=== PATIENT | male | born 1945 | race Caucasian/White ===

== ENCOUNTER 2020-02-05 13:04 | Emergency (ER) | payer MEDICARE, BC, SELFPAY ==
--- NOTE | 2020-02-05 13:04 | ED.GENADUL_ITS ---
Discharge Plan Disposition Patient Disposition: HOME Condition: Good Discharge Details Chief Complaint: Cellulitis Clinical Impression: Cellulitis Primary Care Provider: Dali Jefferson ED Provider: Pamela Adler Home Meds and New Rx's Prescriptions: New cephalexin [Keflex] 500 mg capsule 500 mg PO QID 5 Days Qty: 20 RF: 0 Discharge Instructions Instructions: Cellulitis (ED) Additional Instructions: Your findings are concerning for infection of your skin called cellulitis. H owever, the tick was on too short of a period of time to be able to transmit Lyme disease. I would like you to take the antibiotics for your bacterial infection. Even if symptoms improve, please take the entire prescription. If you develop spreading of the redness, fever/chills or the new/worsening symptom please seek care urgently once again. Otherwise, please follow-up with primary care in 3 days for reevaluation. Referrals: Dali Jefferson MD [Primary Care Provider] - Discharge Data Discharge Date/Time-TO BE ENTERED AT DEPARTURE: 02/05/20 13:35 Medical Decision Making Patient presents today for evaluation of tick bite. He reports that approximate week and a half ago his removed a small deer tick from the inside aspect of his left upper arm. He reports that the tick was on for only a few hours and d oes not believe that it was embedded. However, over the last few days he has been developing surrounding erythema, discomfort. He states that the area has been pruritic and has been itching this and worsened to the central scab in doing so. He denies any fevers or chills. Last tetanus was in 2018. Exam, patient appears nontoxic. Vital signs within normal limits. On exam, patient has small area consistent with a tick bite that has been excoriated. Surrounding this area is a large area of erythema. No fluctuance. He is tender to palpation and warm to the touch. No streaking moving proximally. He has no palpable lymphadenopathy in the axilla. 2+ distal pulses and forward to motion. Based on history, this is more consistent with a cellulitis after tick bite rather than Lyme disease. Feel treatment with Keflex is appropriate. Encourage hydration. He was given strict return precautions. Advised to follow-up with primary care in the next few days for reevaluation. All his questions or concerns were addressed and he is in agreement this plan. HPI General Mode of arrival: ambulatory . Date/Time Provider Initiated Documentation: 02/05/20 13:04 . Limitations to Documentation: no limitations . Information obtained by: patient and RN notes reviewed . History of Present Illness 74 year old M presents to the emergency department with the chief complaint of left medial upper arm erythema and pain after tick bite, described as mild, with intensity rated at 2. Quality is described as aching, and is localized to the left and upper extremity. Patient reports no radiation. Patient started experiencing this day(s) and it has been constant (redness progressively spreading). No relieving factors improve symptom(s), No exacerbating factors reported . Patient notes denies chest pain, cough, fever/chills, nausea/vomiting and shortness of breath. Patient did receive the following treatments prior to arrival, none Related Data Home Medications Medication Instructions Recorded Confirmed cephalexin [Keflex] 500 mg PO QID 5 Days #20 cap 02/05/20 Previous Rx's Medication Instructions Recorded cephalexin [Keflex] 500 mg PO QID 5 Days #20 cap 02/05/20 Allergies Allergy/AdvReac Type Severity Reaction Status Date / Time shellfish derived Allergy Severe GI upset, Unverified 02/05/20 13:14 nasal congestion Review of Systems Constitutional Constitutional: Reports as per HPI, Denies chills, Denies fever(s), Denies headache(s) and Denies weakness ENT Ears, Nose, Mouth, and Throat: Denies headache(s) Cardiovascular Cardiovascular: Reports as per HPI Respiratory Respiratory: Reports as per HPI and Denies cough Musculoskeletal Musculoskeletal: Reports as per HPI and Denies tingling Integumentary/Breasts Skin/Breast: Reports as per HPI, Denies rash and Reports wounds Neurologic Neurologic: Reports as per HPI, Denies headache(s), Denies tingling, Denies paresthesias and Denies weakness [facility] Social History Smoking/Tobacco Use Status: Former Tobacco Use Alcohol Intake: current Alcohol Intake frequency: 0-2 drinks per day Alcohol type: beer Drug use: Never Do you feel safe at home: Yes Do you feel safe in your relationship?: Yes Exam Const General: cooperative, healthy appearing, comfortable, no acute distress, well developed and well groomed Nutritional Appearance: average body habitus and well nourished Orientation: alert and awake Resp Effort & Inspection: normal respiratory effort, able to speak in complete sentences and no respiratory distress Cardio Rate: regular rate Rhythm: regular rhythm Skin General skin exam: erythema (surrounding small scab as drawn below) Neuro General: patient alert and patient awake Cognition: normal cognition Speech: speech normal Gait: normal gait Motor: muscle tone normal throughout Sensory Exam: no sensory deficits noted Extrem Shoulder/upper arm images: 1. area of tick bite with small scab. The area has been excoriated. He has 2+ distal pulses. Full range of motion of the arm. No sensory deficits. Axial nerve testing is intact. He has no palpable lymphadenopathy in his axilla. 2. Surrounding area of erythema. This was marked with surgical marker. No fluctuance or induration. This area is tender with palpation and warm to touch. Psych Appearance: grossly normal and well kempt Mental Status: mental status grossly normal Speech and Movement: speech and movement normal
[2020-02-05 13:07] VITALS: BP 138/76; PULSE 75; RESP 15; TEMP 37.1; O2SAT 99
--- NOTE | 2020-02-05 13:45 | NUR.NOTE ---
Nursing Note: Referral for PCP follow up faxed. Cheryle Mcdonald.
== END 2020-02-05 13:35 | disposition home or self-care (01) ==
PROVIDERS: Emergency Provider Physician Assistant; PCP Family Medicine
DX: L03.114 Cellulitis of left upper limb (principal); S40.862A Insect bite (nonvenomous) of left upper arm, initial encounter; W57.XXXA Bitten or stung by nonvenomous insect and other nonvenomous arthropods, initial encounter
CPT/HCPCS: 99283; 99284

== ENCOUNTER 2020-06-19 00:47 | Outpatient (CLI) | payer MEDICARE, BC, SELFPAY ==
--- NOTE | 2020-07-15 13:53 | W.ZIOMONITOR ---
Date of service: 07/15/20 Time of Service: 13:53 14 Day [employer] Referring Provider:: daysi Indications:: afib Note: This is a 14-day monitor ordered for indication of atrial fibrillation. ?Patient had 5 episodes of atrial fibrillation which accounted for 25% of the 14-day recording. While in atrial fibrillation the average heart rate was 104 bpm. ?The patient had multiple additional runs of supraventricular tachycardia that were much shorter in duration. ?There were 21 episodes of nonsustained ventricular tachycardia with the longest lasting 9 beats. ?The patient had rare PACs and rare PVCs. ?There were no pauses greater than 3 seconds and no evidence of high degree heart block. Patient detected events were associated with sinus rhythm as well as atrial fibrillation with RVR
== END 2020-06-19 01:07 ==
PROVIDERS: PCP Family Medicine; Visit Provider Family Medicine
DX: R06.09 Other forms of dyspnea (principal); I08.1 Rheumatic disorders of both mitral and tricuspid valves
CPT/HCPCS: 93306

== ENCOUNTER 2020-06-19 14:41 | Emergency (ER) | payer MEDICARE, BC, SELFPAY ==
[2020-06-19] VITALS (48 sets, daily range): BP systolic 108–128; BP diastolic 68–91; PULSE 56–109; RESP 12–32; TEMP 36.7; O2SAT 90–96
--- NOTE | 2020-06-19 14:30 | RT.EKG_ITS ---
APPROVED REPORT Exam: Resting ECG Patient Location: E HR:95 bpm ECG Measurements Heart Rate 95 AXIS NE [id number] P [id number] QRSd 91 QRS -28 QT 323 T 39 QTc 407 Conclusion Atrial fibrillation...V-rate 78-109, irreg A-activity I have reviewed and interpreted ECG and agree with software generated interpretation.
--- NOTE | 2020-06-19 14:45 | DI.RAD_ITS ---
EXAM: XR CHEST 2V PA LATERAL CLINICAL HISTORY: Atrial fibrillation, new onset, dyspnea TECHNIQUE: 2D digital imaging was performed. COMPARISON: CR CHEST 2 VIEWS PA,LAT from 12/11/2015 FINDINGS: The heart is not enlarged. The lungs are clear and well expanded. No pleural effusion seen. Mediastin al contours appear intact. IMPRESSION: Normal chest RADIATION DOSE DELIVERED: Total DLP
[2020-06-19 15:07] LABS: Abs Immature Grans 0.02 10^3/uL (0.0-0.06); Absolute Basophil Count 0.07 10^3/uL (0.0-0.2); Absolute Eosinophil Count 0.26 10^3/uL (0.0-0.7); Absolute Lymphocyte Count 2.06 10^3/uL (1.2-3.4); Absolute Monocyte Count 0.51 10^3/uL (0.1-0.8); Absolute Neutrophil Count 5.25 10^3/uL (1.2-6.7); Basophils % 0.9; Eosinophils % 3.2; HGB 15.5 g/dL (13.5-17.5); Immature Grans % 0.2; Lymphocytes % 25.2; MCH 30.8 pg (27.0-33.0); MCHC 33.7 % (32.0-36.0); MCV 91.3 fL (80-95); MPV 9.3 fL (8.0-11.0); Monocytes % 6.2; Neutrophils % 64.3; Nucleated RBC 0 %; Platelet Count 308 10^3/uL (130-400); RBC 5.04 10^6/uL (4.36-5.78); RDW 13.1 % (11.8-14.1); RDW-SD 43.8 fL; WBC 8.17 10^3/uL (4.4-10.8)
[2020-06-19] MEDS: Aspirin 81 MG CHEW 324 MG CH (15:10)
--- NOTE | 2020-06-19 15:11 | W.ED.GENAD ---
Discharge Plan Disposition Patient Disposition: HOME Discharge Details Clinical Impression: Atrial fibrillation, ESTRADA (dyspnea on exertion) Primary Care Provider: Dali Jefferson ED Provider: Rohan Porter Home Meds and New Rx's Prescriptions: New Xarelto 20 mg tablet 20 mg PO DAILY Qty: 20 RF: 0 metoprolol succinate 25 mg tablet extended release 24 hr 25 mg PO DAILY Qty: 20 RF: 0 No Action No Known Home Meds RF: 0 Discharge Instructions Instructions: A-fib (Atrial Fibrillation) (ED), Dyspnea (ED) Additional Instructions: Xarelto and metoprolol as directed. As we discussed it is extremely important that you seek medical attention if you are involved in MVA, fall hit your head, etc. as your bleeding risk increases with Xarelto. I have personally spoken with your primary care provider, Dr. Jefferson, who is aware of your ER visit today and diagnosis of atrial fibrillation. She plans to see you in the office in the next 2-3 weeks, if you do not hear from their office in the next couple of days that I recommend reaching out to establish her appointment. Please watch for new or worsening symptoms and return to the ER for any concerns. Discharge Data Discharge Date/Time-TO BE ENTERED AT DEPARTURE: 06/19/20 18:40 Medical Decision Making <Mena Santiago - Last Filed: 06/20/20 08:50> 74-year-old male presents to the ER after having an echocardiogram done prior to arrival and noted to have irregular tachycardia. Patient was having an echocardiogram done due to being dyspneic for years. He reports he has had 3- echocardiograms and one stress test in the past which is all been negative until today. He denies any chest pain no abdominal pain and no other complaints. Patient is not taking any medications on a regular basis. He states that he does not see the doctor said very rarely. On initial exam he does have an irregular rate from 95-112. EKG was reviewed by Naomie Melo MD ER attending, see please see her official read, old EKG was available for review from 2015. It shows atrial fibrillation with a rate of 78-109. 2016 EKG shows normal sinus rhythm. EXAM: XR CHEST 2V PA LATERAL CLINICAL HISTORY: Atrial fibrillation, new onset, dyspnea TECHNIQUE: 2D digital imaging was performed. COMPARISON: CR CHEST 2 VIEWS PA,LAT from 12/11/2015 FINDINGS: The heart is not enlarged. The lungs are clear and well expanded. No pleural effusion seen. Mediastinal contours appear intact. IMPRESSION: Normal chest At this time care is to be handed off to oncoming provider JON Bowers pending lab results and disposition. Discussed patient case in details with Rohan who verbalizes understanding. Patient was hemodynamically stable at the time of this dictation. <JON Soto - Last Filed: 06/19/20 19:21> This is a 74-year-old gentleman whom I assumed care of through signout from my colleague MAE Santiago. Please see her HPI and examination. Patient has dyspnea on exertion for the past 3 years, evaluated by his primary care provider, and scheduled for an outpatient echocardiogram today. During his echocardiogram he was noted to be in atrial fibrillation. Sent to the ER for further evaluation. On the presentation heart rate was 109. Cardiac work-up was initiated and 10 IV diltiazem was ordered. Upon my evaluation patient is resting in room 4 comfortably, has no questions or concerns. Currently is asymptomatic. Denies any chest pain or shortness of breath whatsoever. Patient appears well, nontoxic, head normocephalic, moist mucous membranes, neck nontender, full range of motion. Heart irregularly irregular, rate in the 90s, lungs clear to auscultation. Abdomen soft, nontender. Normal distal pulses. Without calf discomfort or swelling. No pedal edema. Diltiazem has just been given. Awaiting response to the medication. Initial work-up thus far has been unremarkable with a white blood cell count of 8.17 hemoglobin 15.5 hematocrit 46.0 platelet count 308. Electrolytes unremarkable, creatinine 1.05 with a GFR greater than 60. Glucose 100 calcium 9.3 magnesium 2.1 LFTs unremarkable. Troponin less than 0.05, TSH 1.35. Patient reports dyspnea on exertion for the past 3 years and now in A. fib, unknown exactly how long he has been in atrial fibrillation. I will add on a CTA chest to rule out potential PE. Patient remains asymptomatic. Second troponin has been drawn. Patient is very adamant that he wants to be discharged home tonight. He is asymptomatic and I will be admitted for observation here in the ER. CT reveals no pulmonary embolism. Findings suggesting mild bronchitis and bronchiolitis. 3 x 4 mm left upper lobe nodule, indeterminate but likely benign. Able to discuss the case with the patient primary care provider, Dr. Jefferson. She is aware of his presentation today and his work-up. She is aware of the patient's desire to be discharged. We discussed treatment options. Will place on Xarelto and low-dose metoprolol long-acting, set the patient up with a 14-day Holter monitor, and she will follow the patient in the next 2-3 weeks as an outpatient. I discussed this plan with the patient and he has no additional questions or concerns. Initial dose of Xarelto given. 14-day Holter monitor set up here in the ER. Patient remains asymptomatic. Repeat troponin is less than 0.05. Patient has no additional questions or concerns and is comfortable discharge at this time. We did discuss the importance of watching for new or evolving symptoms and returning immediately to the ER, otherwise contacting his primary care office for evaluation in the next 2-3 weeks. I will provide him with a 3-week prescription for his Xarelto and metoprolol. Medical Records Medical records reviewed: Yes I reviewed the patient's medical records. HPI <Mena Santiago - Last Filed: 06/20/20 08:50> General Mode of arrival: ambulatory. Date/Time Provider Initiated Documentation: 06/19/20 14:48. Limitations to Documentation: no limitations. Information obtained by: patient. HPI Narrative: 74-year-old male presents to the ER after having an echocardiogram done prior to arrival and noted to have irregular tachycardia. Patient was having an echocardiogram done due to being dyspneic for years. He reports he has had 3- echocardiograms and one stress test in the past which is all been negative until today. He denies any chest pain no abdominal pain and no other complaints. Patient is not taking any medications on a regular basis. He states that he does not see the doctor said very rarely. On initial exam he does have an irregular rate from 95-112. Related Data Home Medications Medication Instructions Recorded Confirmed Unknown [No Known Home Meds] 06/19/20 06/19/20 metoprolol succinate 25 mg PO DAILY #20 tab 06/19/20 rivaroxaban [Xarelto] 20 mg PO DAILY #20 tab 06/19/20 Previous Rx's Medication Instructions Recorded metoprolol succinate 25 mg PO DAILY #20 tab 06/19/20 rivaroxaban [Xarelto] 20 mg PO DAILY #20 tab 06/19/20 Allergies Allergy/AdvReac Type Severity Reaction Status Date / Time shellfish derived Allergy Severe GI upset, Unverified 06/19/20 14:51 nasal congestion General Stated Complaint: Palpitatns ANGELO: 2 Review of Systems <Mena Santiago - Last Filed: 06/20/20 08:50> Narrative: Constitutional: Negative for weight loss, alert and oriented, well groomed, normal body habitus, appears comfortable. HEENT: Denies trauma, headaches, blurry vision, nasal discharge, sore throat, trouble swallowing. Chest: Denies chest pain, hypertension. Respiratory: Denies Shortness of breath, cough, hemoptysis. GI: Denies abdominal pain, nausea, vomiting, diarrhea, constipation. : Denies dysuria, hematuria, flank pain, rectal bleeding. Neuro: Denies dizziness, blurry vision, weakness, syncope, headache or facial numbness. Hematologic: Denies easy bruising, intolerance to heat or cold, hair loss. PFSH <Mena Santiago - Last Filed: 06/20/20 08:50> Social History Smoking/Tobacco Use Status: Former Tobacco Use Alcohol Intake: current Alcohol Intake frequency: 0-2 drinks per day Alcohol type: beer Drug use: Never Details: quit smoking 40 yrs ago Do you feel safe at home: Yes Do you feel safe in your relationship?: Yes Exam <Mena Santiago - Last Filed: 06/20/20 08:50> Narrative Exam Narrative: Constitutional: Alert and oriented x3. Appears stated age. Normal body habitus. Head: Normocephalic, no trauma. Eyes: Pupils PERRLA, Red reflex noted, EOM's intact. Eyelids symmetrical without lesions, discharge, or swelling. ENT: Bilateral TM's WNL, External ear normal to inspection, no mastoid TTP, swelling, or erythema, Nasal turbinates WNL, no nasal discharge. Normal dentition, Posterior pharynx WNL, no exudate. Chest: Irregular rate from 95-112, normal S1, S2, distal pulses intact. Resp: Lungs clear to auscultation bilaterally, no wheezes, rales, or rhonchi. Musculoskeletal: Normal gait, 5/5 strength to all four extremities. Skin: No suspicious rashes or lesions. Capillary refill less than 2 sec. Neurologic: Cranial nerves II-XII intact. Alert and oriented x 3. DTR's intact. Hematologic/Lymphatic: No ecchymosis, no lymphadenopathy. Course <Mena Santiago - Last Filed: 06/20/20 08:50> Vital Signs Vital signs: Vital Signs Temperature 36.7 C 06/19/20 14:47 Pulse 109 H 06/19/20 14:47 Respiratory Rate 18 06/19/20 14:47 Blood Pressure 123/78 06/19/20 14:47 Pulse Oximetry 95 06/19/20 14:47 Temperature 36.7 C 06/19/20 14:47 Temperature Source Skin 06/19/20 14:47 Pulse 109 H 06/19/20 14:47 Respiratory Rate 18 06/19/20 14:47 Respiratory Effort 06/19/20 14:52 Blood Pressure 123/78 06/19/20 14:47 Pulse Oximetry 95 06/19/20 14:47 Oxygen Delivery Method Room Air 06/19/20 14:47 Oxygen Flow Rate 0 06/19/20 14:47 Pain Level 0 06/19/20 14:47 Lab/Test Results Lab/Test Results: Laboratory Tests Range/Units 06/19/20 14:51 WBC (4.4-10.8) 10^3/uL 8.17 RBC (4.36-5.78) 10^6/uL 5.04 Hgb (13.5-17.5) g/dL 15.5 Hct (40.0-50.0) % 46.0 MCV (80-95) fL 91.3 MCH (27.0-33.0) pg 30.8 MCHC (32.0-36.0) % 33.7 RDW (11.8-14.1) % 13.1 Plt Count (130-400) 10^3/uL 308 MPV (8.0-11.0) fL 9.3 Immature Gran % 0.2 Neutrophils % 64.3 Lymphocytes % 25.2 Monocytes % 6.2 Eosinophils % 3.2 Basophils % 0.9 Nucleated RBC % % 0 Absolute Neutrophils (1.2-6.7) 10^3/uL 5.25 Absolute Lymphocytes (1.2-3.4) 10^3/uL 2.06 Absolute Monocytes (0.1-0.8) 10^3/uL 0.51 Absolute Eosinophils (0.0-0.7) 10^3/uL 0.26 Absolute Basophils (0.0-0.2) 10^3/uL 0.07 Sign Out <Mena Santiago - Last Filed: 06/20/20 08:50> Sign Out Data: Sign Out Comment: Pending rate control, possible cardiology consult, and disposition Last updated by Mena Santiago at 06/19/20 16:02
[2020-06-19 15:40] LABS: ALT 36 U/L (16-63); AST 18 U/L (15-37); Albumin 3.6 g/dL (3.4-5.0); Alkaline Phosphatase 68 U/L (46-116); Anion Gap 8.4 mmol/L (3-11); BUN 19 mg/dL (7-18); Bilirubin, Total 0.4 mg/dL (0.2-1.0); CO2 26.6 mmol/L (21.0-32.0); CREATININE 1.05 mg/dL (0.70-1.30); Calcium 9.3 mg/dL (8.5-10.1); Chloride 107 mmol/L (98-107); Glucose 100 mg/dL (74-106); Magnesium 2.1 mg/dL (1.8-2.4); Potassium 4.2 mmol/L (3.5-5.1); Sodium 142 mmol/L (136-145); TSH 1.35 uIU/mL (0.36-3.74); Total Protein 7.3 g/dL (6.4-8.2)
[2020-06-19 15:54] LABS: Troponin I < 0.05 ng/mL (<0.06)
[2020-06-19] MEDS: dilTIAZem 25 MG/5 ML VIAL 10 MG IVP (16:01)
--- NOTE | 2020-06-19 16:15 | DI.CT_ITS ---
EXAM: CT CHEST PE CTA CLINICAL HISTORY: ESTRADA, afib. TECHNIQUE: Imaging Protocol: Axial CT angiography was performed with multi-slice acquisition and mu lti-planar and/or 3D reconstructions. CONTRAST MATERIAL: Intravenous: Omnipaque 350 Contrast volume:structured data in ml COMPARISON: No exams were available for comparison FINDINGS: CT angiography of the chest was performed with intravenous infusion of 100 cc of Omnipaque 350. The lungs are predominantly clear with mild dependent atelectasis. No pleural effusion. Tracheobronc hial tree appears intact. No evidence of pulmonary embolic disease. Thoracic aorta is of normal diameter, no thoracic aortic an eurysm or dissection, major branch vessels appear intact. No mediastinal or hilar adenopathy. Images obtained through the upper abdomen show unremarkable appearance of the visualized portions of the liver, spleen, pancreas, adrenals, and kidneys. IMPRESSION: Negative CT angiogram of the chest. No evidence of pulmonary embolic disease. RADIATION DOSE DELIVERED: 418.06mGy.cm Total DLP 418.06mGy.cm Total DLP DATA REPOSITORY: All CT scans at this facility are submitted to the National Radiology Data Registry (NRDR) Dose Index Registry (DIR) with the [employer] (ACR). RADIATION OPTIMIZATION: All CT scans at this facility use at least one of these dose optimization te chniques: automated exposure control; mA and/or kV adjustment per patient size (includes targeted exa ms where dose is matched to clinical indication); or iterative reconstruction.
[2020-06-19] MEDS: Omnipaque 350 MG/ML 100 ML BTL IJ (16:54)
[2020-06-19 18:07] LABS: Troponin I < 0.05 ng/mL (<0.06)
[2020-06-19] MEDS: Rivaroxaban 10 MG TABLET 20 MG PO (18:35)
--- NOTE | 2020-06-27 16:02 | DI.VRAD_ITS ---
PROCEDURE INFORMATION: Exam: CT Angiography Chest With Contrast Exam date and time: 06/19/2020 4:50 PM Age: 74 years old Clinical indication: Other: Raines, afib TECHNIQUE: Imaging protocol: Computed tomographic angiography of the chest with intravenous contrast. 3D rendering (Not supervised by radiologist): MIP and/or 3D reconstructed images were created by the technologist. COMPARISON: None. FINDINGS: Pulmonary arteries: No filling defects within the central pulmonary arteries are identified to suggest pulmonary embolism. There is no bowing of the interventricular septum. There is trace reflux of contrast into the suprahepatic inferior vena cava, likely related to pressure of contrast injection. The pulmonary arteries are not dilated. Aorta: Unremarkable. No aortic aneurysm. No aortic dissection. Lungs: There is mild central peribronchial thickening, most marked within the lower lobes. There are also regions of mild mucous plugging within the few subsegmental basilar lower lobe bronchi. There also a few regions of mild tree-in-bud opacities within both lung bases suggesting mild bronchiolitis/infectious small airways disease. There are regions of mild subsegmental atelectasis within both lung bases. On image 110, series 5, there is a 3 x 4 mm noncalcified anterolateral apical left upper lobe nodule. There is minimal paraseptal emphysema at the lung apices. Pleural space: No pleural effusions are identified. Heart: Heart size is mildly enlarged. There is no pericardial effusion. Lymph nodes: There is no thoracic adenopathy identified. Bones/joints: There are multilevel mild degenerative changes of the mid and lower thoracic spine. There is mild anterior wedging of the T12 vertebra which appears chronic. No acute fracture. Soft tissues: Unremarkable. IMPRESSION: 1. No pulmonary embolism identified. 2. Findings suggesting mild bronchitis and bronchiolitis, as described above. Recommend clinical correlation. 3. 3 x 4 mm left upper lobe nodule, indeterminate but likely benign. For patients at low risk (minimal or absent history of smoking and of other known risk factors), no routine follow-up is indicated. For patients at high risk (history of smoking or of other known risk factors), consider optional CT Chest at 12 months. (Reference: Daphney) References: Daphney Johnson, et al. Guidelines for Management of Incidental Pulmonary Nodules Detected on CT Images: From the Fleischner Society 2017. Radiology. 2017;284(1):228-243. Dictated and Authenticated by: Donta Rosales MD. Ordering:JUAQUIN Madrigal MD
== END 2020-06-19 18:40 | disposition home or self-care (01) ==
PROVIDERS: Registered Nurse Emergency; Emergency Provider Physician Assistant; PCP Family Medicine
DX: R06.09 Other forms of dyspnea (principal); I48.91 Unspecified atrial fibrillation; R91.1 Solitary pulmonary nodule
CPT/HCPCS: 0296T; 36415; 71275; 80053; 93005; 96374; 99285; 71046; 83735; 84443; 84484; 85025; 93010; 93306; J3490

== ENCOUNTER 2020-07-15 13:53 | Outpatient (CLI) | payer MEDICARE, BC, SELFPAY | END 2020-07-15 14:13 | PROVIDERS: PCP Family Medicine; Referring Provider Physician Assistant; Visit Provider Internal Medicine Cardiovascular Disease | DX: I48.91 Unspecified atrial fibrillation (principal); I47.1 Supraventricular tachycardia; I47.2 Ventricular tachycardia | CPT/HCPCS: 0298T ==

== ENCOUNTER 2020-07-29 10:21 | Outpatient (CLI) | payer MEDICARE, BC, SELFPAY ==
--- NOTE | 2020-07-29 10:30 | DI.NM_ITS ---
APPROVED REPORT Exam: Exercise Treadmill Patient Location: Out-Patient Room/Bed: Stress Nurse: Radha Reyes RN BMI: 27.25 Baseline Rhythm: Atrial Fibrillation Comment: ? delta wave Indications: ESTRADA. Medical History Medical History: Atrial Fibrillation. Cardiac Medications: Metoprolol succinate, Rivaroxaban, Pantoprazole. Allergies: No known drug allergies, Shellfish. Cardiac Risk Factors: None. Previous Cardiac Procedures: None. Pretest Chest Pain Characteristics: None. Exercise History: Sedentary Physical Disabilities: None. Lung Sounds: Clear to auscultation Heart Sounds: Irregular Stress Test Details Test: Exercise stress testing was performed using a modified Abdelrahman protocol., Exercise stress testin g was performed using a Abdelrahman protocol. Nuclear Acquisition: Rest Tc-99m/Stress Tc-99m 1 day Rest Isotope: Tc-99m Sestamibi. Dose: 11.5 Date: 07/29/2020 Injection Time: 1030 Stress Isotope: Tc-99m Sestamibi. Dose: 36 Date: 07/29/2020 Injection Time: 1300 HR Resting HR Supine: 81 bpm Max Heart Rate (APMHR): 146.589531 bpm Resting HR Standin bpm Target HR (85% APMHR): 124.752461 bpm Max HR Achieved: 179 bpm % of APMHR: 122.60 Recovery HR: 99 bpm HR response to stress: Normal HR response to stress BP Resting BP Supine: 144/90 mmHg Resting BP Standin/90 mmHg Max BP: 160/80 mmHg Recovery BP: 148/84 mmHg BP response to stress: Normal blood pressure response to stress. ECG Resting ECG: Atrial Fibrillation Ectopy: None. Stress ECG: Atrial Fibrillation ST Change: No significant ST segment changes noted. Arrhythmia: Non-sustained VT Comment: 4 beat run witnessed on monitor, unable to print for report. Recovery ECG: Atrial Fibrillation Recovery ST Change: Upsloping ST depression Lead(s): V3, V4, V5 Recovery Arrhythmia: Couplet. Clinical Reason for Termination: Dyspnea Stress Symptoms: Dyspnea Exercise duration: 7 min19 sec Highest Stage Reached: Stage 3: 3.4 mph at 14% grade. Exercise capacity: 9.08 METs Stress ECG Conclusion 1. The resting electrocardiogram showed atrial fibrillation 2. The patient exercised on the Abdelrahman protocol and completed a workload of 9.08 METS, limited by dysp margarito 3. Accelerated heart rate response to exercise. Patient achieved greater than 100% of predicted hear t rate for age. Normal blood pressure response to exercise 4. Electrocardiographically negative for myocardial ischemia 5. Atrial fibrillation was present throughout Stress Test Summary STAGE Time (mins) Speed (mph) Grade (%) HR BP SYMPTOMS METS Supine 81 144/90 Standing 101 146/90 1 3 1.7 10 145 152/84 4.6 2 6 2.5 12 150 160/80 7 1 min recovery 162 160/78 3 min recovery 112 150/86 6 min recovery 99 148/84 MPI Conclusion Normal myocardial perfusion without evidence of ischemia or prior infarction Radiologist Interpretation Radiologist Interpretation by: Jimmie Álvarez MD Interpretation Date/Time: 07/29/2020 15:04:38
== END 2020-07-29 10:41 ==
PROVIDERS: PCP Family Medicine; Visit Provider Family Medicine
DX: R06.09 Other forms of dyspnea (principal)
CPT/HCPCS: 78452; 93016; 93018; 93017

== ENCOUNTER → 2020-09-10 14:04 | Outpatient (BNVA) | payer MEDICARE, BC, SELFPAY | PROVIDERS: PCP Family Medicine; Referring Provider Family Medicine; Visit Provider Internal Medicine Cardiovascular Disease | DX: I48.0 Paroxysmal atrial fibrillation (principal); E78.5 Hyperlipidemia, unspecified; R06.00 Dyspnea, unspecified | CPT/HCPCS: 99203; 99214 ==

== ENCOUNTER 2021-06-30 01:35 | Outpatient (CLI) | payer MEDICARE, SELFPAY ==
--- NOTE | 2021-06-30 06:30 | DI.CT_ITS ---
Exam(s) CT CHEST WO EXAM: CT CHEST WO CLINICAL HISTORY: f/u BRYN nodule on scan 1 year ago,R91.1. TECHNIQUE: Multi planar reconstructions were performed. CONTRAST MATERIAL: None COMPARISON: CR XR CHEST 2V PA LATERAL from 06/19/[address] CHEST PE CTA from 06/19/[address] CHEST PE CTA from 06/19/2020 FINDINGS: CHEST: LUNGS: Both lungs are clear. No infiltrates nor ominous pulmonary nodules and there are no pleural e ffusions. There are no significant focal findings in the trachea and mainstem bronchi. There is no bronchiectasis. MEDIASTINUM: There is no obvious hilar nor mediastinal adenopathy. Visualized thyroid unremarkable.No obvious axillary adenopathy CARDIAC: Heart size is normal. There is no pericardial effusion.Ascending thoracic aorta exhibits in creased diameter of up to 4 cm. Diameter of the mid aortic arch is 3.3 cm. Diameter of the proximal descending thoracic aorta is 3.1 cm. Diameter of the distal thoracic aorta is 2.8 cm. VISUALIZED UPPER ABDOMEN:No significant findings in the partially visualized upper abdomen OSSEOUS: No significant osseous lesions.No compression fractures. IMPRESSION: 1. Lungs are clear. No nodules evident (as per request). No infiltrates nor pleural effusions. The re is no intrathoracic adenopathy 2. Ascending thoracic aorta diameter is increased, measuring 4 cm this require appropriate follow-up. Diameter of the mid aortic arch is 3.3 Cm. Diameter of the ascending thoracic aorta is also sligh tly prominent. RADIATION DOSE DELIVERED: 531.16mGy.cm Total DLP DATA REPOSITORY: All CT scans at this facility are submitted to the National Radiology Data Registry (NRDR) Dose Index Registry (DIR) with the [employer] (ACR). RADIATION OPTIMIZATION: All CT scans at this facility use at least one of these dose optimization te chniques: automated exposure control; mA and/or kV adjustment per patient size (includes targeted exa ms where dose is matched to clinical indication); or iterative reconstruction.
== END 2021-06-30 01:55 ==
PROVIDERS: PCP Family Medicine; Visit Provider Student in an Organized Health Care Education/Training Program
DX: R91.1 Solitary pulmonary nodule (principal)
CPT/HCPCS: 71250

== ENCOUNTER 2021-10-13 01:27 | Outpatient (CLI) | payer MEDICARE, SELFPAY ==
[2021-10-13 11:25] LABS: Source Nasal/Nares
[2021-10-13 14:15] LABS: COVID-19 PCR Negative (Negative)
== END 2021-10-13 01:28 | disposition home or self-care (01) ==
PROVIDERS: PCP Family Medicine; Visit Provider Family Medicine
DX: Z20.822 Contact with and (suspected) exposure to COVID-19 (principal); Z01.818 Encounter for other preprocedural examination
CPT/HCPCS: 87635

== ENCOUNTER 2021-10-14 00:21 | Outpatient (CLI) | payer MEDICARE, SELFPAY ==
--- NOTE | 2021-10-14 10:45 | DI.RAD_ITS ---
Exam(s) RF MODIFIED SPEECH BA SWALLOW TECHNIQUE: Modified barium swallow was performed in conjunction with speech pathology. CONTRAST MATERIAL: Oral barium Oral water soluble contrast was administered. COMPARISON: No exams were available for comparison FINDINGS: Note that this is not a dedicated esophagram, distal esophagus not evaluated. There is no evidence of aspiration or penetration of thick or thin liquids, barium pudding, or cookie s. Speech pathology report to follow. IMPRESSION: No evidence of aspiration or penetration. RADIATION DOSE DELIVERED: abrahan Del Rosario= mGy
[2021-10-14] MEDS: Barium Sulfate Oral Paste 40% W/V 230 ML TUBE 13 ML PO (11:00)
[2021-10-14] MEDS: Barium Sulfate 81% w/w for Oral Suspension 148 GM BTL 90 GM PO (11:05)
[2021-10-14] MEDS: Barium Sulfate 40% W/V 1500 CPS 250 ML BTL PO (11:06)
--- NOTE | 2021-10-14 11:10 | ST.MBS ---
Date of Service Date of service: 10/14/21 Time of Service: 10:30 Modified Barium Swallow Study Findings: Videofluoroscopic Swallowing Evaluation / Modified Barium Swallow Study (VFSE/MBSS) Speech Language Pathology Report HPI: Patient is a 76 y/o M with dyspnea on exertion, pulmonary nodule, emphysema, and suspected aspiration/dysphagia per pulmonology (Dr. Bernal is concerned aspiration may be contributing to dyspnea). Medical history also significant for hyperlipidemia, alcohol use, macular degeneration of R eye. Per pulmonology note dated 08/20/21: ?He also brings up several episodes of aspiration. He says it can happen with many different types of foods and liquids and this also causes him to be short of breath.? IMPRESSIONS: Mild oropharyngeal dysphagia, likely chronic; dysphagia presentation suspected due to GERD-related changes and/or presbyphagia. Characterized by mild oral residue (tongue control), reduced pharyngeal motility (especially reduced epiglottic inversion, reduced tongue base & pharyngeal contraction/stripping). Pharyngeal impairments leading to mild-mod pharyngeal residue but not resulting in penetration or aspiration into airway. Swallow safety is preserved; swallow efficiency is mildly impaired. Patient appears to be at low risk for potential aspiration PNA, pulmonary compromise, low risk for malnutrition, low risk for dehydration. Diet modification is not indicated. Swallow prognosis is good given age, severity, comprehension of recommendation of risk management as outlined. Behavioral swallow rehabilitation is not indicated at this time. Noting possible anatomical difference at soft palate vs palatoglossal arch, may warrant visualization by MD. PLAN: Diet recommendation: TOLERATED Risk Management: Behavioral reflux precautions, including upright position during + 90 mins after meals. Small bites, approx [id number] Small sips, approx 10 mL Alternate solids/liquids as able Multiple swallows per bolus (2) to encourage clearance of pharyngeal stasis/residue Control risk factors for aspiration pneumonia via (a) thorough oral hygiene & (b) maintaining physical mobility as tolerated Specialist referrals: n/a Ancillary tests: n/a Therapy: N/A. Reviewed results of today's exam with patient following completion of study, including provision of recommendations as outlined above. Patient was agreeable. No further follow-up necessary. EXAMINATION: SUBJECTIVE: Mr. Elliott arrived on time for this exam, unaccompanied. Appearing well this date, pleasant, joking throughout, remains agreeable to participate in todays instrumental evaluation. OBJECTIVE: Videofluoroscopic Swallow Evaluation (VFSE/MBSS) was conducted in the lateral and [id number] projections by Speech-Language Pathologist, in collaboration with Radiologist, to evaluate oropharyngeal swallow function. Anatomic view under fluoroscopy: Largely WFL at rest, though noting possible pocketing/residue at anterior portion of soft palate, possibly indicative of anatomical difference vs large palatoglossal arch? PO barium contrast trials: Oral barium water soluble contrast was administered as follows: IDDSI Level 0 Varibar thin liquid (40% w/v) IDDSI Level 2 Varibar nectar thick/mildly thick liquid (40% w/v) (A/P VIEW ONLY) IDDSI Level 4 Varibar pudding/pureed/extremely thick (40% w/v) IDDSI Level 7 Regular Solid: 1/2 candelario cracker coated in 3 mL Varibar pudding PHYSIOLOGIC FINDINGS Oral Phase 1 Lip Closure: 1-Interlabial escape; no progression to anterior lip 2 Tongue Control: 1- Escape to lateral buccal cavity/floor of mouth 3 Bolus Preparation/Mastication: 0- Timely and efficient chewing/mashing 4 Bolus Transport/Lingual Motion: 0- Brisk tongue motion 5 Oral residue: 2- Residue collection on oral structures Location: floor of mouth, palate, tongue, lateral sulci 6 Initiation of pharyngeal swallow: 2- Bolus head at posterior laryngeal surface of epiglottis Pharyngeal Phase 7 Velar Elevation: 0- No bolus between soft palate and pharyngeal wall 8 Laryngeal Elevation: 1- Partial superior movement of thyroid cartilage with partial approximation of arytenoids to epiglottic petiole 9 Anterior Hyoid Excursion: 1- Partial anterior movement 10 Epiglottic Movement: 1- Partial inversion 11 Laryngeal Vestibule Closure: 0- Complete; no air/contrast in laryngeal vestibule 12 Pharyngeal Stripping Wave: 1- Present; diminished 13 Pharyngeal Contraction: 1- Incomplete; pseudodiverticulae 14 PES/UES Openin- Complete distension and complete duration; no obstruction of flow 15 Tongue Base Retraction: 2- Narrow column of contrast between tongue base and posterior pharyngeal wall 16 Pharyngeal residue: 0-Complete pharyngeal clearance (cohesive puree) 1- Trace residue within or on pharyngeal structures (thin liquid) 2- Collection of residue within or on pharyngeal structures (regular solid, non-cohesive bolus) Location:Tongue base, Valleculae>Pyriform sinuses>aryepiglottic folds & PPW [place] Pharyngeal Residue Severity Rating Scale (YPRS) (Gregorio et al, 2015) Vallecula Residue Severity III Mild 5-25% Epiglottic ligament visible (thin liquid) IV Moderate 25-50% Epiglottic ligament covered (regular solids) Pyriform Sinus Residue Severity [I None 0% No residue II Trace 1-5% Trace coating of the mucosa (thin liquid) III Mild 5-25% Up wall to quarter full IV Moderate 25-50% Up wall to half full V Severe >50% Filled to aryepiglottic fold] Esophageal Phase 17 Esophageal Clearance Upright Position: 0-Complete clearance; esophageal coating NOTE: This study was performed for interpretation only of the oropharyngeal and pharyngoesophageal domains of swallowing. It is not intended to diagnose any other radiologic abnormalities or substitute for a formal esophagram study. Overall 8-Point Penetration-Aspiration Scale (PAS) (Tarak, et al, 1996) 1 - No material enters the airway. 2 - Material enters the airway, remains above the vocal folds, and is ejected from the airway. 3 - Material enters the airway, remains above the vocal folds, and is not ejected from the airway. 4 - Material enters the airway, contacts the vocal folds, and is ejected from the airway. 5 - Material enters the airway, contacts the vocal folds, and is not ejected from the airway. 6 - Material enters the airway, passes below the vocal folds, and is ejected into the larynx or out of the airway. 7 - Material enters the airway, passes below the vocal folds, and is not ejected from the trachea despite effort. 8 - Material enters the airway, passes below the vocal folds, and no effort is made to eject. Clinical Indicator(s) of Prandial/Postprandial Aspiration: N/A Bolus Modifications Delivery/Alternating Consistencies - Wash with thin liquid - partially successful Reduced Volume - patient not stimulable Increased Viscosity - unsuccessrul Dysphagia Outcome and Severity Scale (BRIAN) LEVEL 6 (of 7) - Full PO: normal diet - Within functional limits/modified independence Thank you for allowing me to take part in this patient's care. Please feel free to contact me with any questions/concerns. Nadia Ibrahim M.S., [facility]-[employer]SI[employer]ANT TE[employer] PROFESSOR Speech Language Pathologist [phone] Coding CPT Codes MOTION FLUOROSCOPY/SWALLOW - [id number] ([id number])
== END 2021-10-14 00:41 ==
PROVIDERS: PCP Family Medicine; Visit Provider Speech-Language Pathologist
DX: R13.12 Dysphagia, oropharyngeal phase (principal); R06.09 Other forms of dyspnea; J70.9 Respiratory conditions due to unspecified external agent
CPT/HCPCS: 92611; 74221

== ENCOUNTER 2021-11-01 09:25 | Inpatient (IN) | payer MEDICARE, SELFPAY ==
[2021-11-01] VITALS (65 sets, daily range): BP systolic 127–173; BP diastolic 85–99; PULSE 72–95; RESP 12–24; TEMP 35.6–36.6; O2SAT 93–98
--- NOTE | 2021-11-01 09:30 | RT.EKG_ITS ---
APPROVED REPORT Exam: Resting ECG Reason for Exam: weakness, confusion Patient Location: E HR:89 bpm ECG Measurements Heart Rate 89 AXIS RI [id number] P [id number] QRSd 98 QRS -33 QT 383 T -1 QTc 466 Conclusion Atrial fibrillation...V-rate 73-107, irreg A-activity Left axis deviation...QRS axis (-30,-90) afib, left axis, non ischemic
--- NOTE | 2021-11-01 09:45 | DI.CT_ITS ---
Exam(s) CT BRAIN NECK CTA EXAM: CT BRAIN NECK CTA CLINICAL HISTORY: ataxia, AMS began 30 mins prior. TECHNIQUE: Imaging Protocol: Axial CT angiography was performed with multi-slice acquisition and mu lti-planar and/or 3D reconstructions. CONTRAST MATERIAL: Intravenous: Omnipaque 350 Contrast volume:85 COMPARISON: CT CT CHEST PE CTA from 06/19/2020 FINDINGS: CTA Neck W: Aortic arch anatomy: The aortic arch anatomy is conventional. Anterior circulation: There is no evidence of significant stenosis at the origin of the great vessels off the aortic arch. Both common carotid arteries ascend with normal luminal diameters. There is mild partially calcified plaque on the posterior suresh of the carotid bifurcations and proximal internal carotid arteries laura aterally but without hemodynamically significant stenosis at these levels (approximately 10 percent b ilaterally). Both internal carotid arteries are nicely patent in the neck and skull base-carotid can als. Posterior circulation: Both vertebral arteries originate in conventional fashion off of the subclavian arteries without sten osis at their origins nor in the subclavian arteries proximal to the vertebral artery takeoff points. Both vertebral arteries ascend with normal luminal diameters in the foramen transverse area without e vidence of intraluminal thrombus nor dissection. At the skull base both vertebral arteries contribut e to the formation of the basilar artery. CTA Brain W: Anterior circulation: Both internal carotid arteries are patent in the cavernous sinuses as are the supraclinoid aspects of these vessels. Both A1 segments are patent. There is no aneurysm at the level of the anterior comm unicating artery. Only one of the anterior cerebral arteries is opacified proximally. This may be v ariant anatomy but cannot exclude an occlusion. Both middle cerebral arteries are patent. Posterior circulation: Basilar artery is formed by contribution from both vertebral arteries at the skull base. Distally th e basilar artery gives off patent superior cerebellar arteries. Above this level it terminates as le ft posterior cerebral artery. The right posterior cerebral artery is fed by a posterior communicatin g artery on the right side of the [id number]-ly-Yfoyic. The left posterior cerebral artery appears occlu ded at the junction of the P2 and P3 segments. CT BRAIN: There is no evidence of intracranial hemorrhage, mass effect, or shift of midline structures. There are no extra-axial fluid collections. Ventricles are not enlarged or shifted. There are no ring enh ancing lesions in the brain and no abnormal meningeal enhancement. IMPRESSION: 1. 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 2. Variant anatomy in the proximal anterior cerebral arteries. 3. No obvious infarct evident at this time on this noninfused CT scan of the brain and there is no evidence of intracranial hemorrhage. Recommend MRI/MRA. RADIATION DOSE DELIVERED: 1,965mGy.cm Total DLP DATA REPOSITORY: All CT scans at this facility are submitted to the National Radiology Data Registry (NRDR) Dose Index Registry (DIR) with the [employer] (ACR). RADIATION OPTIMIZATION: All CT scans at this facility use at least one of these dose optimization te chniques: automated exposure control; mA and/or kV adjustment per patient size (includes targeted exa ms where dose is matched to clinical indication); or iterative reconstruction.
--- NOTE | 2021-11-01 09:48 | DI.RAD_ITS ---
Exam(s) XR CHEST 1V IN DI DEPT EXAM: XR CHEST 1V IN DI DEPT CLINICAL HISTORY: AMS, ataxia. TECHNIQUE: 2D digital imaging was performed. COMPARISON: CR XR CHEST 2V PA LATERAL from 06/19/2020 FINDINGS: Heart size is upper normal. The mediastinum is not widened. Lungs are clear. No infiltrates nor obvious pleural effusions. IMPRESSION: No acute pulmonary findings on this single AP portable view of the chest. DATA REPOSITORY: RADIATION DOSE DELIVERED: All CT scans at this facility use at least one of these dose optimization techniques: automated exposure control; mA and/or kV adjustment per patient size (includes targeted e xams where dose is matched to clinical indication); or iterative reconstruction.
--- NOTE | 2021-11-01 09:54 | W.ED.GENAD ---
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 Concern for CVA versus TIA versus less likely seizure versus less likely intoxication versus metabolic derangement versus less likely infectious process versus less likely primary cardiac issue. Pending CT and symptomatology consider admission here for neurology versus transfer for stat neurology evaluation 10: 52 evidence of left posterior cerebral artery occlusion at P2 P3 junction. Patient resting comfortably no acute distress at this time, alert oriented no focal deficits, hemodynamically stable with normal blood pressure, spoke with patient's Nereyda at phone number [phone] who endorses the patient is not on any anticoagulation he just takes a baby aspirin, no recent surgery. Have stat paged neurology at [facility] will consider TPA given ataxia affecting functional status whereat timeframe approximately 2 hours from onset therefore have approximately 2.5 hours remaining to administer TPA. Have also asked to speak with interventional radiology team to see if this clot would be amenable to thrombectomy; patient family amenable to transfer pending consultation with neurology 11: [address] Valerio of neurology at [facility]. Patient has persistent ataxia with ambulation; discussed patient care and presentation. TPA is an option, thrombectomy not an option due to distal aspect of [employer]. If patient to receive TPA here and then neurology team would accept patient at [facility] however due to space availability if patient does not receive TPA he will need to stay here at [facility]. 12: 19 patient resting comfortably hemodynamically stable. Spent approximately 20 to 30 minutes at the bedside conducting shared decision making with patient and patient's regarding the next step in his care. Counseled patient and family at length regarding risks and benefits of TPA. After much discussion the decision was made not to administer TPA. Patient to be started on Plavix, to be admitted to the ICU here for close monitoring and neurologic assessment. Lab Data Lab results narrative: Laboratory Tests Range/Units 11/01/21 11/01/21 11/01/21 09:40 09:40 09:40 WBC (4.4-10.8) 10^3/uL 6.74 RBC (4.36-5.78) 10^6/uL 5.13 Hgb (13.5-17.5) g/dL 15.6 Hct (40.0-50.0) % 47.6 MCV (80-95) fL 92.8 MCH (27.0-33.0) pg 30.4 MCHC (32.0-36.0) % 32.8 RDW (11.8-14.1) % 13.2 Plt Count (130-400) 10^3/uL 281 MPV (8.0-11.0) fL 9.4 Immature Gran % 0.3 Neutrophils % 52.6 Lymphocytes % 33.7 Monocytes % 8.3 Eosinophils % 4.2 Basophils % 0.9 Nucleated RBC % % 0 Absolute Neutrophils (1.2-6.7) 10^3/uL 3.55 Absolute Lymphocytes (1.2-3.4) 10^3/uL 2.27 Absolute Monocytes (0.1-0.8) 10^3/uL 0.56 Absolute Eosinophils (0.0-0.7) 10^3/uL 0.28 Absolute Basophils (0.0-0.2) 10^3/uL 0.06 PT (9.3-11.0) sec 10.5 INR (0.9-1.1) 1.0 APTT (21.0-27.5) sec 23.2 Sodium (136-145) mmol/L 137 Potassium (3.5-5.1) mmol/L 4.3 Chloride (98-107) mmol/L 105 Carbon Dioxide (21.0-32.0) mmol/L 24.7 Anion Gap (3-11) mmol/L 7.3 BUN (7-18) mg/dL 13 Creatinine (0.70-1.30) mg/dL 0.9 Estimated GFR/1.73 m2 (mL/min/1.73m2) >= 60.00 Glucose (74-106) mg/dL 108 H Calcium (8.5-10.1) mg/dL 9.2 Total Bilirubin (0.2-1.0) mg/dL 0.8 AST (15-37) U/L 24 ALT (16-63) U/L 38 Alkaline Phosphatase (46-116) U/L 75 Troponin I (<or=60) ng/L < 50 Total Protein (6.4-8.2) g/dL 7.8 Albumin (3.4-5.0) g/dL 3.9 Urine Opiates Screen (Negative) Urine Methadone Screen (Negative) Ur Barbiturates Screen (Negative) Ur Tricyclics Screen (Negative) Ur Amphetamines Screen (Negative) U Benzodiazepines Scrn (Negative) Urine Cocaine Screen (Negative) Ur THC Screen (Negative) Ethyl Alcohol (<10) mg/dL Range/Units 11/01/21 11/01/21 09:40 10:55 WBC (4.4-10.8) 10^3/uL RBC (4.36-5.78) 10^6/uL Hgb (13.5-17.5) g/dL Hct (40.0-50.0) % MCV (80-95) fL MCH (27.0-33.0) pg MCHC (32.0-36.0) % RDW (11.8-14.1) % Plt Count (130-400) 10^3/uL MPV (8.0-11.0) fL Immature Gran % Neutrophils % Lymphocytes % Monocytes % Eosinophils % Basophils % Nucleated RBC % % Absolute Neutrophils (1.2-6.7) 10^3/uL Absolute Lymphocytes (1.2-3.4) 10^3/uL Absolute Monocytes (0.1-0.8) 10^3/uL Absolute Eosinophils (0.0-0.7) 10^3/uL Absolute Basophils (0.0-0.2) 10^3/uL PT (9.3-11.0) sec INR (0.9-1.1) APTT (21.0-27.5) sec Sodium (136-145) mmol/L Potassium (3.5-5.1) mmol/L Chloride (98-107) mmol/L Carbon Dioxide (21.0-32.0) mmol/L Anion Gap (3-11) mmol/L BUN (7-18) mg/dL Creatinine (0.70-1.30) mg/dL Estimated GFR/1.73 m2 (mL/min/1.73m2) Glucose (74-106) mg/dL Calcium (8.5-10.1) mg/dL Total Bilirubin (0.2-1.0) mg/dL AST (15-37) U/L ALT (16-63) U/L Alkaline Phosphatase (46-116) U/L Troponin I (<or=60) ng/L Total Protein (6.4-8.2) g/dL Albumin (3.4-5.0) g/dL Urine Opiates Screen (Negative) Negative Urine Methadone Screen (Negative) Negative Ur Barbiturates Screen (Negative) Negative Ur Tricyclics Screen (Negative) Negative Ur Amphetamines Screen (Negative) Negative U Benzodiazepines Scrn (Negative) Negative Urine Cocaine Screen (Negative) Negative Ur THC Screen (Negative) Negative Ethyl Alcohol (<10) mg/dL < 3.0 HPI General Date/Time Provider Initiated Documentation: 11/01/21 09:38. HPI Narrative: 76-year-old male history of hyperlipidemia macular degeneration paroxysmal A. 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 Denies chest pain or shortness of breath. Per patient symptomatology began approximately 30 minutes prior to arrival Related Data Home Medications Medication Instructions Recorded Confirmed aspirin 81 mg tablet,delayed 81 mg PO DAILY 06/04/21 11/01/21 release (Adult Low Dose Aspirin) albuterol sulfate 90 mcg/actuation 2 puff INHALATION .COMPLEX PRN 06/19/21 11/01/21 aerosol inhaler (ProAir HFA) #8.5 g Previous Rx's Medication Instructions Recorded albuterol sulfate 90 mcg/actuation 2 puff INHALATION .COMPLEX PRN 06/19/21 aerosol inhaler (ProAir HFA) #8.5 g Allergies Allergy/AdvReac Type Severity Reaction Status Date / Time shellfish derived Allergy Severe GI upset, Unverified 11/01/21 09:51 nasal congestion General Stated Complaint: CVA/TIA ANGELO: 2 Review of Systems Narrative: Review of Systems Constitutional: negative Eyes: negative ENT: negative Cardiovascular: negative Respiratory: negative Gastrointestinal: negative : negative Musculoskeletal: negative Skin: negative Neurologic: Confusion, ataxia Psych: negative PFSH All Active Problems (Updated 11/01/21 @ 12:28 by Lucho Rios MD) 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 Social History (Updated 06/04/21 @ 10:59 by Radha Urban) Smoking/Tobacco Use Status: Former Tobacco Use tobacco type: cigarettes Quit Date: 09/13/75 Pack-years: 5 Smoking risk assessment performed?: Yes Alcohol Intake: current Alcohol Intake frequency: 0-2 drinks per day Alcohol type: beer Drug use: Never Details: quit smoking 40 yrs ago What is your relationship status?: Panel score (0-1 are the most socially isolated patients): 1 Do you feel safe at home: Yes Do you feel safe in your relationship?: Yes Exam Narrative Exam Narrative: Physical Examination General: alert, awake, cooperative, resting comfortably, no acute distress HEENT: normocephalic, atraumatic; PERRL, EOM intact, conjunctiva normal; no nasal discharge; moist mucous membranes, oral and pharyngeal mucosa normal, tolerating secretions Neck: supple, trachea midline; full ROM Chest: normal to inspection Respiratory: normal respiratory effort, speaking in full sentences, clear to auscultation, no wheezing, rales or rhonchi Cardiac: regular rate, regular rhythm, S1S2 intact, no murmurs rubs or gallops GI: abdomen soft, non-tender, non-distended; no palpable mass or hepatosplenomegaly Skin: no lesions, rashes or trauma appreciated Neuro: AAOx3, normal speech, moving all extremities 5 out of 5 strength upper and lower extremities, slight possible pronator drift to right upper extremity, patient does have truncal ataxia when sitting, as well as marked ataxia when attempting to ambulate, requires assistance. cranial nerves II through XII intact; no sensory deficits however patient does feel as if his left upper and left lower extremity are more cold than his right, visual baires intact Psych: Appropriate mood and affect Course Vital Signs Vital signs: Vital Signs Temperature 36.5 C 11/01/21 09:43 Pulse 90 11/01/21 09:43 Respiratory Rate 16 11/01/21 09:43 Blood Pressure 137/92 H 11/01/21 09:43 Pulse Oximetry 95 11/01/21 09:43 Temperature 36.5 C 11/01/21 09:43 Temperature Source Skin 11/01/21 09:43 Pulse 90 11/01/21 09:43 Respiratory Rate 16 11/01/21 09:43 Respiratory Effort 11/01/21 09:43 Blood Pressure 137/92 H 11/01/21 09:43 Blood Pressure Position Supine 11/01/21 09:43 Pulse Oximetry 95 11/01/21 09:43 Oxygen Delivery Method Room Air 11/01/21 09:43 Oxygen Flow Rate 0 11/01/21 09:43 Pain Level 0 11/01/21 09:43
[2021-11-01 10:04] LABS: Abs Immature Grans 0.02 10^3/uL (0.0-0.06); Absolute Basophil Count 0.06 10^3/uL (0.0-0.2); Absolute Eosinophil Count 0.28 10^3/uL (0.0-0.7); Absolute Lymphocyte Count 2.27 10^3/uL (1.2-3.4); Absolute Monocyte Count 0.56 10^3/uL (0.1-0.8); Absolute Neutrophil Count 3.55 10^3/uL (1.2-6.7); Basophils % 0.9; Eosinophils % 4.2; HCT 47.6 % (40.0-50.0); HGB 15.6 g/dL (13.5-17.5); Immature Grans % 0.3; Lymphocytes % 33.7; MCH 30.4 pg (27.0-33.0); MCHC 32.8 % (32.0-36.0); MCV 92.8 fL (80-95); MPV 9.4 fL (8.0-11.0); Monocytes % 8.3; Neutrophils % 52.6; Nucleated RBC 0 %; Platelet Count 281 10^3/uL (130-400); RBC 5.13 10^6/uL (4.36-5.78); RDW 13.2 % (11.8-14.1); RDW-SD 45.1 fL; WBC 6.74 10^3/uL (4.4-10.8)
[2021-11-01] MEDS: Omnipaque 350 MG/ML 100 ML BTL IJ (10:16)
[2021-11-01] MEDS: Normal Saline Flush 10 ML SYR IVP (10:16)
[2021-11-01 10:23] LABS: ALT 38 U/L (16-63); AST 24 U/L (15-37); Albumin 3.9 g/dL (3.4-5.0); Alkaline Phosphatase 75 U/L (46-116); Anion Gap 7.3 mmol/L (3-11); BUN 13 mg/dL (7-18); Bilirubin, Total 0.8 mg/dL (0.2-1.0); CO2 24.7 mmol/L (21.0-32.0); CREATININE 0.9 mg/dL (0.70-1.30); Calcium 9.2 mg/dL (8.5-10.1); Chloride 105 mmol/L (98-107); Glucose 108 mg/dL (74-106); Potassium 4.3 mmol/L (3.5-5.1); Sodium 137 mmol/L (136-145); Total Protein 7.8 g/dL (6.4-8.2); Troponin I < 50 ng/L (<or=60)
[2021-11-01 10:24] LABS: ETHANOL BLOOD < 3.0 mg/dL (<10)
[2021-11-01 10:32] LABS: PTT Activated 23.2 sec (21.0-27.5)
--- NOTE | 2021-11-01 10:36 | DI.VRAD_ITS ---
Addendum created by Paul Paul MD on 11/01/2021 10:37:15 AM EST: The findings were verbally communicated via telephone conference with Lucho Rios at 10:37 AM EST on 11/01/2021. The findings were acknowledged and understood. Initial report created on 11/01/2021 10:35:55 AM EST: PROCEDURE INFORMATION: Exam: CT Angiography Head With Contrast, Arteriography Exam date and time: 11/01/2021 9:53 AM Age: 76 years old Clinical indication: Other: Ataxia, AMS began 30 mins prior TECHNIQUE: Imaging protocol: Computed tomography angiography of the head with contrast. Exam focused on the arteries. 3D rendering (Not supervised by radiologist): MIP and/or 3D reconstructed images were created by the technologist. Contrast material: OMNIPAQUE 350; Contrast volume: 100 ml; Contrast route: INTRAVENOUS (IV); COMPARISON: RF MODIFIED SPEECH BA SWALLOW 10/14/2021 10:29 AM FINDINGS: ANTERIOR CIRCULATION: Right internal carotid artery: Unremarkable. Intracranial segment is patent with no significant stenosis. No aneurysm. Right middle cerebral artery: Unremarkable. No occlusion or significant stenosis. No aneurysm. Right anterior cerebral artery: Unremarkable. No occlusion or significant stenosis. No aneurysm. Left internal carotid artery: Unremarkable. Intracranial segment is patent with no significant stenosis. No aneurysm. Left middle cerebral artery: Unremarkable. No occlusion or significant stenosis. No aneurysm. Left anterior cerebral artery: Unremarkable. No occlusion or significant stenosis. No aneurysm. POSTERIOR CIRCULATION: Right vertebral artery: Unremarkable. No occlusion or significant stenosis. No aneurysm. Left vertebral artery: Unremarkable. No occlusion or significant stenosis. No aneurysm. Basilar artery: Unremarkable. No occlusion or significant stenosis. No aneurysm. Right posterior cerebral artery: Unremarkable. No occlusion or significant stenosis. No aneurysm. Left posterior cerebral artery: Occlusion of the left posterior cerebral artery at the junction of the P2-P3 segments. No aneurysm. Brain: No definite mass, mass effect, or midline shift. Cerebral ventricles: No ventriculomegaly. Bones/joints: Unremarkable. No acute fracture. Soft tissues: Unremarkable. IMPRESSION: Left posterior cerebral artery occlusion at the junction of the P2 and P3 segments. No intracranial hemorrhage. PROCEDURE INFORMATION: Exam: CT Angiography Neck With Contrast Exam date and time: 11/01/2021 9:53 AM Age: 76 years old Clinical indication: Other: Ataxia, AMS began 30 mins prior TECHNIQUE: Imaging protocol: Computed tomography angiography of the neck with contrast. 3D rendering (Not supervised by radiologist): MIP and/or 3D reconstructed images were created by the technologist. Contrast material: OMNIPAQUE 350; Contrast volume: 100 ml; Contrast route: INTRAVENOUS (IV); COMPARISON: RF MODIFIED SPEECH BA SWALLOW 10/14/2021 10:29 AM FINDINGS: Right common carotid artery: No stenosis. No dissection or occlusion. Right internal carotid artery: Minimal atherosclerotic plaque at the origin of the right internal carotid artery, with no stenosis. No dissection or occlusion. Right external carotid artery: No occlusion or stenosis of the origin. Left common carotid artery: No stenosis. No dissection or occlusion. Left internal carotid artery: Minimal atherosclerotic plaque at the origin of the left internal carotid artery, with no stenosis. No dissection or occlusion. Left external carotid artery: No occlusion or stenosis of the origin. Right vertebral artery: No stenosis. No dissection or occlusion. Left vertebral artery: No stenosis. No dissection or occlusion. Soft tissues: Normal. No significant soft tissue swelling. Bones/joints: No acute fracture. IMPRESSION: No stenosis or occlusion. REFERENCES: NASCET CRITERIA. The degree of internal carotid artery stenosis is based on NASCET criteria. Normal is no stenosis. Mild is less than 50% stenosis. Moderate is 50-69% stenosis. Severe is 70% to 99% stenosis. Total occlusion is no detectable patent lumen. Dictated and Authenticated by: Paul Paul MD. Ordering:BRADY Yepez MD
--- NOTE | 2021-11-01 10:37 | DI.VRAD_ITS ---
PROCEDURE INFORMATION: Exam: XR Chest Exam date and time: 11/01/2021 10:24 AM Age: 76 years old Clinical indication: Other: AMS, ataxia TECHNIQUE: Imaging protocol: XR of the chest. Views: 1 view. COMPARISON: CT CHEST WO 06/30/2021 9:52 AM FINDINGS: Lungs: Unremarkable. No consolidation. Pleural spaces: Unremarkable. No pleural effusion. No pneumothorax. Heart/Mediastinum: Unremarkable. No cardiomegaly. Bones/joints: Unremarkable. IMPRESSION: No acute findings. Dictated and Authenticated by: Paul Paul MD. Ordering:BRADY Yepez MD
[2021-11-01 10:50] LABS: Prothrombin Time 10.5 sec (9.3-11.0)
[2021-11-01 11:19] LABS: *AMPHETAMINES SCREEN URINE Negative (Negative); *BARBITURATES SCREEN URINE Negative (Negative); *BENZODIAZEPINES SCREEN URINE Negative (Negative); Cannabinoids THC Negative (Negative); Cocaine Screen,Urine Negative (Negative); METHADONE URINE SCREEN Negative (Negative); OPIATES URINE SCREEN Negative (Negative)
[2021-11-01 11:26] LABS: Tricyclic Antidepressants Negative (Negative)
[2021-11-01 11:37] LABS: Bilirubin Negative (Negative); Blood Negative (Negative); Clarity Clear (Clear); Glucose Negative (Negative); Ketones Negative (Negative); Leukocyte Esterase Negative (Negative); Nitrite Negative (Negative); Specific Gravity 1.015 (1.005-1.025); Urobilinogen 0.2 EU/dL (Up TO 0.2)
[2021-11-01] MEDS: Clopidogrel 300 MG TAB PO (12:37)
[2021-11-01 12:44] LABS: Source Nasal/Nares
--- NOTE | 2021-11-01 13:37 | INITIAL_ITS ---
- If Service Date Differs Date of service: 11/01/21 Time of Service: 13:37 Care Management Initial Assess REASON FOR HOSPITALIZATION:: Acute CVA, Left CRYSTAL GAZER Occulusion PAST MEDICAL HISTORY/PAST SURGICAL HISTORY:: 76-year-old male history of paroxysmal A. fib, hyperlipidemia presents with acute onset resolved confusion as well as ataxia that is persistent. Dyspnea on exertion, pulmonary nodule, emphysema, and suspected aspiration/dysphagia per pulmonology. Medical history also significant for hyperlipidemia, alcohol use, macular degeneration of R eye. Per pulmonology note dated 08/20/21: ?He also brings up several episodes of aspiration. He says it can happen with many different types of foods and liquids and this also causes him to be short of breath.? PREVIOUS FUNCTIONAL STATUS/SOCIAL/FAMILY SUPPORTS:: , lives with his , Eileen Iraheta#[phone] in [place]. 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 CURRENT FUNCTIONAL STATUS:: Jimmie was just admitted to ICU. CM continues to follow. Has patient been provided with info about the portal/API?: Yes Did the patient sign up for the portal?: No CODE STATUS:: Full Code INSURANCE COVERAGE / FINANCIAL ISSUES:: BC/BS Other. BC/BS [facility] [employer] PRIMARY CARE PHYSICIAN:: Dali Jefferson POTENTIAL DISCHARGE NEEDS:: Neurology consult. PATIENT/FAMILY EDUCATION NEEDS:: Review of discharge instructions, discuss Ask Me Three. ANTICIPATED BARRIERS TO DISCHARGE:: None identified. TRANSPORTATION:: Via private vehicle with family. PLAN:: Refused thrombolitics after lengthly discussion with MD, now on plavix and aspirin with close monitoring in the ICU, awaiting neurology consult. CM continues to follow.
[2021-11-01] MEDS: Enoxaparin 40 MG/0.4 ML SYR SC (14:33)
[2021-11-01 14:52] LABS: COVID-19 PCR Negative (Negative)
--- NOTE | 2021-11-01 16:43 | HPE_ITS ---
Date of service: 11/01/21 Time of Service: 16:43 Assessment and Plan Assessment and plan (1) Stroke: Status: Chronic Assessment and plan: acute ataxia d/t RPCA occlusion. Patient declined to undergo TPA therefore he has been put on Plavix in addition to his ASA. I have added high dose Atorvastatin 80 mg nightly for the next few days. Will get echo and brain MRI on Wednesday along w/ local neurology consult. Will have P.T. evaluate him in the a.m. Patient has been counseled on the risks of CVA d/t afib. I think that he should reconsider anticoagultion however will not fully anticoagulate until ashley stallings sees him and he has MRI brain to assess the full extent of his CVA. He may be at risk of acute bleeding in the near term and therefore it may be prudent to wait to anticoagulate him. 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 He probably ought to have outpatient 30 day event or 14 day event recorder to assess his burden of afib (5) Hyperlipidemia: Status: Acute Assessment and plan: check lipid profile in the am. Begin high dose atorvastatin (6) DVT prophylaxis: Status: Acute Assessment and plan: enoxaparin 40 mg sc daily History of Present Illness History of Present Illness Chief Complaint: unable to walk d/t imabalance; ataxia Narrative: 76 yr old male former smoker w/ hx of PAF formerly on anticoagulation but quit taking this some time ago d/t intolerance (not specific as to his reactions but no hx of GI bleed from them); he his suppose to be on daily aspirin but is not compliant. 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 He was also confuse, forgetting where he placed his customers invoice. The customer noted his problems walking and sat him down. No loss of consciousness, no hea dache, no dysarthric speech nor focal paresthesias nor paraparesis and no acute visual changes (he has chronic right eye central vision loss d/t macular degeneration. Onset of his symptoms were approximately 30 minutes prior to arrival. Stat CTA of head and neck was done and demonstrated acute occlusion of Left posterior cerebral artery in the distal artery at the P2-P3 junction. Dr. Rubin, ER attending gave him Plavix 300 mg and patient reportedly had already taken his aspirin this morning. Dr. Rubin spoke w/ Dr. Valerio, neurology from [facility] [place] who recommended TPA if the patient was willing to accept the risks. Dr. Rubin indicated to me that the patient's symptoms were already improving while in the ER and his NIH stroke scale was a 1 or 2. After prolonged discussion by Dr. Rubin and the patient and his , the patient decided against TPA d/t risks of bleeding and little benefit as he was alrady improving. The patient was admitted to ICU for close neurologic monitoring. [facility] [place] did not have bed capacity to accept him in transfer but did consider him if he were to have TPA. 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 for CP, palpitations, LOC, dizziness, syncope, but positive for exertional dyspnea (1 flight of stairs) Respiratory Comments: neg. 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 Social History (Updated 11/01/21 @ 22:41 by Rohan Arroyo) Smoking/Tobacco Use Status: Former Tobacco Use tobacco type: cigarettes Quit Date: 01/01/76 Pack-years: 5 Smoking risk assessment performed?: Yes Alcohol Intake: current Alcohol Intake frequency: 3 or more drinks per day Alcohol type: beer Drug use: Never Details: quit smoking 40 yrs ago What is your relationship status?: Panel score (0-1 are the most socially isolated patients): 1 Do you feel safe at home: Yes Do you feel safe in your relationship?: Yes Meds Allergies and Home Medications Allergies Allergy/AdvReac Type Severity Reaction Status Date / Time shellfish derived Allergy Severe GI upset, Unverified 11/01/21 09:51 nasal congestion Home Medications Medication Instructions Recorded Confirmed Type aspirin 81 mg tablet,delayed 81 mg PO DAILY 06/04/21 11/01/21 History release (Adult Low Dose Aspirin) albuterol sulfate 90 mcg/actuation 2 puff INHALATION .COMPLEX PRN 06/19/21 11/01/21 Rx aerosol inhaler (ProAir HFA) #8.5 g Exam Narrative Exam Narrative: Elderly white male who is alert/oriented x 3, normal speech No facial asymmetry, full EOMI, normal hearing, mormal facial mimetic movement; normal tongue movement, normal palate movement Neck: supple, nontender, no adenopathy, no carotid bruits, normal pulses LUngs: clear Heart: irregularly irregular Abdomen: soft, nontender, no organomegaly, no bruits Extremities: no edema; palpable but diminished pedal pulses; no cyanosis Neuro: CN II-XII intact (except olfactory not tested); normal motor strength and ROM, normal sensation to light touch and noxious stimulation over all 4 extremities and the face; Babinski equivocal d/t withdrawal; no pronator drift and normal finger to nose and heel to pabon movements Results Labs Result diagrams: 11/01/21 09:40 11/01/21 09:40 Labs: Laboratory Results - last 24 hr 11/01/21 11/01/21 11/01/21 09:40 09:40 09:40 WBC 6.74 RBC 5.13 Hgb 15.6 Hct 47.6 MCV 92.8 MCH 30.4 MCHC 32.8 RDW 13.2 Plt Count 281 MPV 9.4 Immature Gran % 0.3 Neutrophils % 52.6 Lymphocytes % 33.7 Monocytes % 8.3 Eosinophils % 4.2 Basophils % 0.9 Nucleated RBC % 0 Absolute Neutrophils 3.55 Absolute Lymphocytes 2.27 Absolute Monocytes 0.56 Absolute Eosinophils 0.28 Absolute Basophils 0.06 PT 10.5 INR 1.0 APTT 23.2 Sodium 137 Potassium 4.3 Chloride 105 Carbon Dioxide 24.7 Anion Gap 7.3 BUN 13 Creatinine 0.9 Estimated GFR/1.73 m2 >= 60.00 Glucose 108 H Calcium 9.2 Total Bilirubin 0.8 AST 24 ALT 38 Alkaline Phosphatase 75 Troponin I < 50 Total Protein 7.8 Albumin 3.9 Urine Color Urine Clarity Urine pH Ur Specific [place] Urine Protein Urine Ketones Urine Blood Urine Nitrite Urine Bilirubin Urine Urobilinogen Ur Leukocyte Esterase Urine Glucose Urine Opiates Screen Urine Methadone Screen Ur Barbiturates Screen Ur Tricyclics Screen Ur Amphetamines Screen U Benzodiazepines Scrn Urine Cocaine Screen Ur THC Screen Ethyl Alcohol COVID-19 Source SARS-CoV-2 (PCR) 11/01/21 11/01/21 11/01/21 09:40 10:55 10:55 WBC RBC Hgb Hct MCV MCH MCHC RDW Plt Count MPV Immature Gran % Neutrophils % Lymphocytes % Monocytes % Eosinophils % Basophils % Nucleated RBC % Absolute Neutrophils Absolute Lymphocytes Absolute Monocytes Absolute Eosinophils Absolute Basophils PT INR APTT Sodium Potassium Chloride Carbon Dioxide Anion Gap BUN Creatinine Estimated GFR/1.73 m2 Glucose Calcium Total Bilirubin AST ALT Alkaline Phosphatase Troponin I Total Protein Albumin Urine Color Yellow Urine Clarity Clear Urine pH 6.0 Ur Specific [place] 1.015 Urine Protein Negative Urine Ketones Negative Urine Blood Negative Urine Nitrite Negative Urine Bilirubin Negative Urine Urobilinogen 0.2 Ur Leukocyte Esterase Negative Urine Glucose Negative Urine Opiates Screen Negative Urine Methadone Screen Negative Ur Barbiturates Screen Negative Ur Tricyclics Screen Negative Ur Amphetamines Screen Negative U Benzodiazepines Scrn Negative Urine Cocaine Screen Negative Ur THC Screen Negative Ethyl Alcohol < 3.0 COVID-19 Source SARS-CoV-2 (PCR) 11/01/21 12:40 WBC RBC Hgb Hct MCV MCH MCHC RDW Plt Count MPV Immature Gran % Neutrophils % Lymphocytes % Monocytes % Eosinophils % Basophils % Nucleated RBC % Absolute Neutrophils Absolute Lymphocytes Absolute Monocytes Absolute Eosinophils Absolute Basophils PT INR APTT Sodium Potassium Chloride Carbon Dioxide Anion Gap BUN Creatinine Estimated GFR/1.73 m2 Glucose Calcium Total Bilirubin AST ALT Alkaline Phosphatase Troponin I Total Protein Albumin Urine Color Urine Clarity Urine pH Ur Specific [place] Urine Protein Urine Ketones Urine Blood Urine Nitrite Urine Bilirubin Urine Urobilinogen Ur Leukocyte Esterase Urine Glucose Urine Opiates Screen Urine Methadone Screen Ur Barbiturates Screen Ur Tricyclics Screen Ur Amphetamines Screen U Benzodiazepines Scrn Urine Cocaine Screen Ur THC Screen Ethyl Alcohol COVID-19 Source Nasal/Nares SARS-CoV-2 (PCR) Negative Last Vital Signs Temp 35.6 C L 11/01/21 13:58 Pulse 82 11/01/21 13:58 Resp 18 11/01/21 13:58 BP 127/93 H 11/01/21 13:58 Pulse Ox 98 11/01/21 13:58 PAWSS Have you Been Recently Intoxicated or Drunk Within the Last 30 days?: No Have you Ever Experienced Previous Episodes of Alcohol Withdrawal?: No Have you ever Experienced Withdrawal Seizures?: No Have you ever Experienced Delirium Tremens(DT)s?: No Have you ever Experienced Blackouts?: No Have you ever Combined Alcohol with other Downers within the last 90 days?: No Have you ever Combined Alcohol with any other Substance of Abuse during the last 90 days?: No Positive Blood Alcohol level on Presentation? [PCS.BAL]: No Evidence of Increased Autonomic Activity (i.e. HR>120, tremor, sweating, agitation, nausea)?: No Result: 0
[2021-11-01] MEDS: Atorvastatin 40 MG TAB 80 MG PO (20:30)
[2021-11-02] VITALS (9 sets, daily range): BP systolic 104–131; BP diastolic 66–87; PULSE 62–98; RESP 16–18; TEMP 35.9–36.7; O2SAT 92–98
[2021-11-02 06:15] LABS: Hemoglobin A1C 5.6 % (<5.7)
[2021-11-02 06:17] LABS: Calculated LDL 147 mg/dL (<100); Cholesterol 229 mg/dL (<200); HDL Cholesterol 64 mg/dL (40-60); TSH 3.69 uIU/mL (0.36-3.74); Triglyceride 93 mg/dL (<150)
[2021-11-02] MEDS: Clopidogrel 75 MG TAB PO (08:11)
[2021-11-02] MEDS: Aspirin E.C. 81 MG TABEC PO (08:11)
--- NOTE | 2021-11-02 13:07 | PT.INIE ---
PT Notes Visit Reasons: Acute CVA, Left [employer] Occlusion Physical Therapy Inpatient Initial Evaluation Date: 11/02/21 Referring Doctor: Rohan Arroyo MD PT Orders: PT CONSULT: Fall Safety Assessment Precautions: Fall. Standard. 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 Alcohol use Lumbar disc herniation Macular degeneration of right eye Social History/Home Situation: Pt lives in a house with his and adult grandchild Equipment Owned/DME: cane and walker owned, but does not use Subjective: Cleared by nursing to see patient and patient is agreeable to PT. Patient semi-fowlers at the time of consult on RA. Objective: General Observation: Pt appears in no acute distress. Mental Status: A&O x3 Pain: Pt reports slight pain in his R side Vitals: BP: 120/79 HR: 77 SpO2: 95% ROM: Right Upper Extremity: Shoulder Flexion WFL. Shoulder abduction WFL. Elbow flexion WFL. Wrist flexion WFL. Opening and closing of hand WFL. Left Upper Extremity: Shoulder Flexion WFL. Shoulder abduction WFL. Elbow flexion WFL. Wrist flexion WFL. Opening and closing of hand WFL. Right Lower Extremity: Hip flexion WFL. Hip abduction WFL. Knee flexion WFL. Ankle dorsiflexion WFL. Ankle plantarflexion WFL. Left Lower Extremity: Hip flexion WFL. Hip abduction WFL. Knee flexion WFL. Ankle dorsiflexion WFL. Ankle plantarflexion WFL. Strength: Right Upper Extremity: Shoulder flexors 5/5. Shoulder abductors 5/5. Elbow flexors 5/5. Elbow extensors 5/5. Mortgage Coordinator strong. Left Upper Extremity: Shoulder flexors 5/5. Shoulder abductors 5/5. Elbow flexors 5/5. Elbow extensors 5/5. Mortgage Coordinator strong. Right Lower Extremity: Hip flexors 4/5. Hip abductors 4/5. Knee flexors 4/5. Knee extensors 4/5. Ankle dorsiflexors 4/5. Ankle plantarflexors 5/5. Left Lower Extremity: Hip flexors 4/5. Hip abductors 4/5. Knee flexors 4/5. Knee extensors 4/5. Ankle dorsiflexors 4/5. Ankle plantarflexors 5/5. Sensation: Intact as to pain and pressure on bilateral lower extremities. Bed Mobility/Transfers: Rolling: I Supine to sit: I Sit to supine: I Sit to stand: I Stand to sit: I Bed to chair: I Chair to bed: I Gait: Ambulated [id number] without AD and reciprocal gait pattern, I. Stairs: Ascent/descent of 4steps without rails demonstrating reciprocal gait pattern, I. Balance: Static Sitting: I Dynamic Sitting: I Static Standing: I Dynamic Standing: I 4 stage balance test Time completed FT 10s Semi-tandem 10s Tandem 4s SLS NT Special Tests: Mobility Limitations Standardized Measure [facility] 6 clicks Basic Mobility Inpatient Short Form: Raw Score: 24 CMS Score: 0% Informed Consent/Education: Patient instructed in purpose of PT consult and plan of care. Assessment: Patient presents with clinical signs and symptoms consistent with current/admitting diagnoses that are not currently presenting with mobility deficits. Pt demonstrates reduced static balance as compared to norm, but demonstrates postural control consistent with ambulation in home environment I. Patient is assessed as a low complexity based on the following: History: 76 year old male identifying person with impairment level findings, functional limitations, and past medical history as indicated above Examination: Functional mobility status consistent with community ambulator, limited only by dyspnea. Presentation: Stable Decision Making: low complexity Plan of Care/Treatment Plan: Considering pt's independent status with stair climbing and ambulation over level surfaces, pt does not require PT services in this setting but is recommended follow-up with OP PT or cardiopulmonary services to address deficits in aerobic capacity and reduce pt's risk of future incidence of CVA. Pt was recommended walking at least x2 daily around the floor with nursing supervision. DISCHARGE RECOMMENDATIONS: Home with referral to OP PT or cardiopulmonary services. TREATMENT CODE/TIME: (30 minutes), [id number] Thank you for the opportunity to participate in the care of this patient.
[2021-11-02] MEDS: Enoxaparin 40 MG/0.4 ML SYR SC (14:04)
--- NOTE | 2021-11-02 14:51 | W.PM.PROGNOT ---
Date of Service Date of service: 11/02/21 Time of Service: 14:51 Assessment and Plan Assessment and plan (1) Stroke: Status: Acute Assessment and plan: patient declined TPA treatment yesterday. Patient was put on Plavix and aspirin and high dose atorvastatin. clinically he is better. He did well for P.T. today. We will complete his stroke workup tomorrow w/ neurology consultation, echocardiogram, and MRI of the brain. Will plan for outpatient cardiac event recorder to determine his afib burden i.e. how much of the time he is in afib and his maximum rates. At present he remains in afib with variable rate control generally in the 80's to 90's but upwards of low 100's. I have added low dose Toprol XL for rate control. 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 total cholesterol 229, LDL 147. continue high dose atorvastatin. recheck lipids in 8 weeks. (6) DVT prophylaxis: Status: Acute Assessment and plan: enoxaparin 40 mg sc daily Subjective Subjective Interval history since last seen: Jimmie has no acute complaints. I reviewed his current medical condition with him and his and explained to both of them that his stroke is most likely embolic in nature. Patient previously had been on a D.O.A.C. and his believes that it was Xarelto. It is unclear as to what side effect he had from this but he tells me that his PCP had switched him from anticoagulant to an aspirin daily. I explained to both of them that aspirin is inadequate to prevent strokes caused by atrial fibrillation and that if he is not going to go on a D.O.A.C. that he needs to see a otolaryngology teacher about having atrial appendage closure procedure. Even if he were to have a Maze procedure to treat his atrial fibrillation he would need to be on anticoagulation for some time. Kevin states that his ataxia is better. I watched him ambulate for physical therapy and he seemed to be fairly steady on his feet and did not require assistance from the therapist. Exam Narrative Exam Narrative: Alert and oriented x3 no dysarthric speech normal facial mimetic muscle movement. No focal weakness of his hands arms or legs and no truncal ataxia with sitting up and no limb ataxia. Objective Last Vital Signs Temp 36.7 C 11/02/21 14:49 Pulse 88 11/02/21 14:49 Resp 16 11/02/21 14:49 BP 123/77 11/02/21 14:49 Pulse Ox 94 11/02/21 14:49 Laboratory Results - last 24 hr 11/01/21 11/02/21 11/02/21 12:40 05:38 05:38 Hemoglobin A1c 5.6 Triglycerides 93 Total Cholesterol 229 H LDL Cholesterol, Calc 147 H HDL Cholesterol 64 TSH 3.69 SARS-CoV-2 (PCR) Negative PAWSS Have you Been Recently Intoxicated or Drunk Within the Last 30 days?: No Have you Ever Experienced Previous Episodes of Alcohol Withdrawal?: No Have you ever Experienced Withdrawal Seizures?: No Have you ever Experienced Delirium Tremens(DT)s?: No Have you ever Experienced Blackouts?: No Have you ever Combined Alcohol with other Downers within the last 90 days?: No Have you ever Combined Alcohol with any other Substance of Abuse during the last 90 days?: No Positive Blood Alcohol level on Presentation? [PCS.BAL]: No Evidence of Increased Autonomic Activity (i.e. HR>120, tremor, sweating, agitation, nausea)?: No Result: 0
[2021-11-02] MEDS: Metoprolol CR 25 MG TABCR 12.5 MG PO (15:34)
[2021-11-02] MEDS: Acetaminophen 325 MG TAB PO (19:58)
[2021-11-02] MEDS: Atorvastatin 40 MG TAB 80 MG PO (19:58)
[2021-11-03] VITALS (8 sets, daily range): BP systolic 103–127; BP diastolic 66–77; PULSE 43–98; RESP 16–18; TEMP 36.6–36.9; O2SAT 94–97
--- NOTE | 2021-11-03 07:00 | DI.MRI_ITS ---
Exam(s) MR BRAIN WO EXAM: MR BRAIN WO CLINICAL HISTORY: CVA TECHNIQUE: Multiplanar multisequence MRI of the brain was performed. COMPARISON: CT angiography study of 08/31/2022 was reviewed FINDINGS: CEREBRAL PARENCHYMA: There are 3 small areas of abnormal restricted diffusion seen on DWI sequence. These are in the pulv inar of the left thalamus, left hippocampus and para hippocampus and left occipital lobe. These find ings are consistent with acute infarcts. There is no significant focal signal abnormality in the cerebellar hemispheres nor within the jennifer an d midbrain. There are multiple foci a of sub cm signal abnormality in the bilateral periventricular white matter consistent with chronic ischemic changes, not exhibiting abnormal signal on diffusion imaging. SWI: No evidence of microhemorrhages. PITUITARY GLAND: No mass nor parasellar abnormality. No obvious abnormality in the cavernous sinuses. FLOW VOIDS: This is not an MRA study. Central flow voids are noted. PARANASAL SINUSES: Mild mucosal thickening in left maxillary sinus. No fluid levels. ORBITS: No obvious findings. IMPRESSION: Findings are consistent with acute left-sided ischemic event(s) as described above involving the left thalamus, medial left temporal lobe, and left occipital lobe. Consistent with findings on the recen t CT angiogram study. No evidence of intracranial hemorrhage. DATA REPOSITORY:
--- NOTE | 2021-11-03 07:00 | DI.US_ITS ---
APPROVED REPORT EXAM: Comprehensive 2D, Doppler, and color-flow Echocardiogram Patient Location: In-Patient Room/Bed: [address] Operator: Zabrina Pierre RDCS (AE) Indications: CVA Other Information Study Quality: Adequate Conclusion The left ventricle is borderline dilated. Wall thickness is normal. Estimated ejection fraction is moderately reduced, EF 30 to 35%, global hypokinesis Mildly dilated right ventricle with normal systolic function Both atria are moderately dilated The aortic valve is trileaflet without stenosis or regurgitation Normal mitral valve, moderate to severe regurgitation Normal tricuspid valve, moderate regurgitation. Estimated right ventricular systolic pressure is 27 mmHg Dilated ascending aorta measuring 3.74 cm Wall motion Left Ventricle Left ventricle is borderline dilated. Left ventricular systolic function is moderately decreased. The re is normal left ventricular wall thickness. There is global hypokinesis of the left ventricle. Ther e is no ventricular septal defect visualized. LVEF is 30-35%. Right Ventricle Right ventricle is mildly dilated. The right ventricular systolic function is normal. The RVSP is 27. 4mmHg. Atria Left atrium is moderately dilated. Right atrium is moderately dilated. The interatrial septum is inta ct with no evidence for an atrial septal defect. Aortic Valve The aortic valve is normal in structure. Aortic valve is trileaflet. There is no aortic valvular sten osis. No aortic regurgitation is present. Mitral Valve The mitral valve is normal in structure. No evidence of mitral valve stenosis. Moderate to severe finn ral regurgitation. Tricuspid Valve The tricuspid valve is normal in structure. There is no tricuspid valve stenosis. Moderate tricuspid regurgitation. Pulmonic Valve The pulmonary valve is normal in structure. There is no pulmonic valvular stenosis. Trace pulmonic re gurgitation. Great Vessels The aortic root is normal in size. The ascending aorta is mildly dilated. Aortic arch is normal in ca liber. IVC is normal in size and collapses >50% with inspiration. Pericardium There is no pericardial effusion. 2D Dimensions IVSD d PLAX 0.91 cm M: 0.6-1.2 LV Vol A2C d MOD 107.3 mL LVPW d PLAX 0.94 cm M: 0.6 - 1.2 LV Vol A4C d MOD 119.4 mL LVID d PLAX 5.66 cm M: 4.2 - 5.8 LA vol/ BSA A4C s A-L 35.7 mL/m2 LVDs 4.60 cm M: 2.5 - 4.0 LA Area A4C s MOD 22.28 cm2 Ao Root d 3.39 cm M: 3.1 - 3.7 LV EF A4C MOD 30.5 % RA Area A4C 22.88 cm2 LV EF A2C MOD 30.0 % RA Vol/ BSA A4C s A-L 38.4 mL/m2 LV EF Biplane MOD 30.6 % Ao Asc Diam d 3.74 cm M: 2.6 - 3.4 SV 36.11 mL LV EF Teichholz 37.2 % SV Index 17.84 mL/m2 LVEF (Lainez's) 30.58 % M: 52 - 72 LV Volume 88.23 mL M: 62 - 150 LV Volume Index 43.67 mL/m2 M: 34 - 74 LV Vol Biplane MOD 118.1 mL FS 18.15 % M-Mode TAPSE 1.33 cm (M/F) >1.7 LV Diastology MV E' medial 0.065 (>0.07 m/s) MV E Vmax 0.72 (0.4-1.3 m/s) LV E/e MED 11.10 (<14) MV E/E' medial 11.11 Aortic Valve LVOT Area 3.13 cm2 AoV Area Vmax 3.02 cm2 LVOT Vmax 0.86 m/s AoV Area/ BSA (Vmax) 1.49 cm2/m2 LVOT Mean Tab. 0.59 m/s HERACLIO Mean Tab. 2.39 cm2 LVOT Peak Grad 2.9 mmHg HERACLIO Mean Tab. Index 1.18 cm2/m2 LVOT Mean Grad 1.6 mmHg LVOT VTI 0.126 m LVOT Diam s 1.95 cm AoV Vmax 0.89 m/s Velocity Ratio 0.96 AoV Mean Tab. 0.77 m/s AoV Peak Grad 3.1 mmHg LVOT SV 39.52 mL AoV Mean Grad 2.4 mmHg AoV VTI 0.147 m AoV Area VTI 2.68 cm2 AoV Area/ BSA (VTI) 1.33 cm/m2 Mitral Valve MV DT 178 (160-240 msec) MR Vmax 4.52 m/s MV PHT 52 msec MR VTI 1.398 m MV Area PHT 4.26 cm2 MR Peak Grad 81.8 mmHg MV VTI 0.233 m MR Mean Grad 51.9 mmHg MV Area VTI 1.70 (4.0-6.0 cm2) Pulmonary Valve PV Vmax 0.79 (0.5-1.5 m/s) RVOT Peak Gr. 1.38 mmHg PV Peak Grad 2.5 mmHg RVOT Mean Gr. 0.85 mmHg PV Mean Grad 1.9 mmHg RVOT VTI 0.119 m PV VTI 0.152 m RVOT Vmax 0.59 m/s Tricuspid Valve TR Peak Grad 24.3 mmHg TR Vmax 2.47 m/s RA Pressure 3.00 mmHg RVSP (TR) 27.4 mmHg
[2021-11-03] MEDS: Clopidogrel 75 MG TAB PO (09:10)
[2021-11-03] MEDS: Metoprolol CR 25 MG TABCR 12.5 MG PO (09:10)
[2021-11-03] MEDS: Aspirin E.C. 81 MG TABEC PO (09:10)
--- NOTE | 2021-11-03 12:04 | PGE_ITS ---
Date of Service Date of service: 11/03/21 Time of Service: 12:04 Assessment and Plan Assessment and plan (1) Stroke: Status: Acute Assessment and plan: MRI scan demonstrated Left-sided CVA involving left thalamus and left medial temporal lobe and left occipital lobe. Await neurology's input regarding when it would be safe to start a D.O.A.C. For now continue aspirin and Plavix. Continue high-dose statin. Arrange outpatient stress MPI in cardiology follow- up regarding his cardiomyopathy. Arrange outpatient PSG. Encourage patient to abstain from alcohol. We will begin medical treatment of his cardiomyopathy with beta-blockers low-dose ARB and empagliflozin. 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 total cholesterol 229, LDL 147. continue high dose atorvastatin. recheck lipids in 8 weeks. (6) DVT prophylaxis: Status: Acute Assessment and plan: enoxaparin 40 mg sc daily (7) Discharge planning issues: Status: Acute Assessment and plan: I will plan on dc home today w/ follow up outpatient P.T. and follow up w/ n eurology after he has been seen by neuro. I will arrange cardiology follow up and outpatient testing including P.S.G. 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 Subjective Subjective Interval history since last seen: Patient overall feels okay. He says his balance is improved but thinks he would do better with use of a cane. He is indicates that a couple of headaches but currently is pain-free. No nausea or vomiting no blurred vision. He had his MRI scan today and it shows 3 areas of strokes including Involving the upper pole of pulvinar of the left thalamus and left hippocampus and left perihippocampus as well as left occipital lobe. These are likely embolic strokes. I also went over his echocardiogram with him and he has evidence of a dilated cardiomyopathy. Left ventricle is borderline dilated with normal wall thickness however his left ventricular ejection fraction is moderately reduced at 30 to 35% with global hypokinesis. Right ventricle is mildly dilated with normal systolic function. He has bilateral atrial dilatation. He has moderate mitral vegetation moderate tricuspid regurgitation. Aortic valve showed no stenosis or regurgitation. Ascending aorta is mildly dilated at 3.74 cm. I went over these results with him and recommend that he have an outpatient stress MPI scan to rule out ischemic heart disease. 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 I am also recommending that he have an outpatient sleep study. I will start him on heart failure medications including low-dose losartan, continue Plavix and aspirin pending neurology's input regarding safety of initiating anticoagulation. When neurology feels it is safe to start anticoagulation and will strongly recommend that Mr. Elliott begin a D.O.A.C. I will start him empirically on Jardiance. I think he is euvolemic at this point and does not need diuretics. For his atrial fibrillation as well as his heart failure I will start him on low-dose Coreg and discontinue the low-dose Toprol-XL I started him on. Exam Narrative Exam Narrative: Alert and oriented. Normal range of motion and strength. No limb or truncal ataxia. Lungs are clear to auscultation. Heart is irregularly irregular. Review of his telemetry shows she is in atrial fibrillation with his rate controlled most of the time however with activity last night he did get up into the 130s. Objective Last Vital Signs Temp 36.9 C 11/03/21 11:37 Pulse 85 11/03/21 11:37 Resp 16 11/03/21 11:37 BP 103/66 11/03/21 11:37 Pulse Ox 94 11/03/21 11:37 PAWSS Have you Been Recently Intoxicated or Drunk Within the Last 30 days?: No Have you Ever Experienced Previous Episodes of Alcohol Withdrawal?: No Have you ever Experienced Withdrawal Seizures?: No Have you ever Experienced Delirium Tremens(DT)s?: No Have you ever Experienced Blackouts?: No Have you ever Combined Alcohol with other Downers within the last 90 days?: No Have you ever Combined Alcohol with any other Substance of Abuse during the last 90 days?: No Positive Blood Alcohol level on Presentation? [PCS.BAL]: No Evidence of Increased Autonomic Activity (i.e. HR>120, tremor, sweating, agitation, nausea)?: No Result: 0
[2021-11-03] MEDS: Empaglifozin 10 MG TAB PO (14:09)
[2021-11-03] MEDS: Enoxaparin 40 MG/0.4 ML SYR SC (14:09)
--- NOTE | 2021-11-03 15:57 | NCONE_ITS ---
Date of service: 11/03/21 Time of Service: 15:58 Assessment and Plan Assessment and plan (1) Stroke: Status: Acute (2) Ataxia: Status: Acute (3) Paroxysmal atrial fibrillation: Status: Acute Assessment and plan: Mr. Elliott is a 76 year-old, right-handed man admitted with confusion and ataxia secondary to acute and subacute infarcts in the left hemisphere secondary to paroxysmal atrial fibrillation. We discussed his work-up and findings. His infarcts are small enough such that I think it is ok to start anticoagulation now. He previously had insomnia with Xarelto/rivaroxaban. Will try apixaban/Eliquis instead. ADRs discussed. Stop aspirin and clopidogrel. Continue atorvastatin 80mg at discharge with goal LDL <70. Long-term goal BP <140/90. Continue PT. He should follow-up in the neurology clinic in 4-6 weeks. History of Present Illness History of Present Illness Chief Complaint: stroke Narrative: Handedness: right. Mr. Elliott is a 76 year-old man with paroxysmal atrial fibrillation, not on anticoagulation, hypertension, hyperlipidemia, macular degeneration, and ETOH overuse. Mr. Elliott was admitted to [facility] on 11/01/20 when he developed acute onset gait ataxia and confusion. He was not given tPA due to minor and improving symptoms. He was on aspirin at baseline but was not taking this consistently. He was started on aspirin and clopidogrel upon admission along with high-intensity statin. Anticoagulation has not been started as yet due to concern for secondary hemorrhage. Since admission, he notes continued improvement though not quite to baseline. Work-up: -CTH (11/01/21): no acute findings. I reviewed these images personally and this is my personal interpretation. -CTA head/neck (11/01/21): L GANG LEADER occlusion. I reviewed these images personally and this is my personal interpretation. -MRI brain (11/03/21): several small acute and subacute infarcts involving the L occipital lobe (x2), L medial temporal lobe, L thalamus, and L frontal lobe. Chronic vascular changes also noted. I reviewed these images personally and this is my personal interpretation. -TTE (11/03/21): EF 30-35%, global hypokinesis. Moderately dilated bilateral atria. 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 Social History (Updated 11/03/21 @ 20:40 by Priscilla Buckner MD) Smoking/Tobacco Use Status: Former Tobacco Use tobacco type: cigarettes Quit Date: 09/13/75 Pack-years: 5 Smoking risk assessment performed?: Yes Alcohol Intake: current Alcohol Intake frequency: 3 or more drinks per day Alcohol type: beer Drug use: Never Details: quit smoking 40 yrs ago Household members: spouse current occupation: [employer] What is your relationship status?: Panel score (0-1 are the most socially isolated patients): 1 Do you feel safe at home: Yes Do you feel safe in your relationship?: Yes Visit Medication and Allergies Active Medications Generic Name Dose Route Start Last Admin Trade Name Freq PRN Reason Stop Dose Admin Acetaminophen 0 mg 11/01/21 12:47 11/02/21 19:58 Acetaminophen 325 Mg Tab PO 650 mg Q4H PRN PRN Administration Al Hydrox/Mg Hydrox/Simethicone 30 ml 11/01/21 12:47 Mylanta Suspension 30 Ml Cup PO Q2H PRN PRN Albuterol Sulfate 2 puff 11/01/21 21:13 Albuterol Hfa 8 Gm 60 Puff Inh IH Q4H PRN PRN Shortness of Breath, cough, wheezing Aspirin 81 mg 11/02/21 08:30 11/03/21 09:10 Aspirin E.C. 81 Mg Tabec PO 81 mg DAILY HEMANT Administration Atorvastatin Calcium 80 mg 11/01/21 20:00 11/02/21 19:58 Atorvastatin 40 Mg Tab PO 80 mg QPM HEMANT Administration Carvedilol 3.125 mg 11/03/21 20:00 Carvedilol 3.125 Mg Tab PO BID [facility] Clopidogrel Bisulfate 75 mg 11/02/21 08:30 11/03/21 09:10 Clopidogrel 75 Mg Tab PO 75 mg DAILY HEMANT Administration Device 1 each 11/01/21 21:13 Inhaler, Assist Device DIRECTED HEMANT Dimethicone/Zinc Oxide 0 gm 11/01/21 12:47 Denis Protect Cream 142 Gm Tube TP PRN PRN Docusate Sodium 100 mg 11/01/21 12:47 Docusate Sodium 100 Mg Cap PO TID PRN PRN Empagliflozin 10 mg 11/03/21 12:25 11/03/21 14:09 Empaglifozin 10 Mg Tab PO 10 mg QAM HEMANT Administration Enoxaparin Sodium 40 mg 11/01/21 14:00 11/03/21 14:09 Enoxaparin 40 Mg/0.4 Ml Syr SC 40 mg Q24H HEMANT Administration Sodium Chloride 500 mls @ 0 mls/hr 11/01/21 12:47 Saline 500ml Bag IV PRN PRN As Directed IV Miscellaneous Supplies 1 each 11/01/21 13:00 Iv Access IV DIRECTED [facility] Magnesium Hydroxide 30 ml 11/01/21 12:47 Milk Of Magnesia 30 Ml Cup PO DAILY PRN PRN Polyethylene Glycol 17 gm 11/01/21 12:47 Polyethylene Glycol 3350 17 Gm Packet PO DAILY PRN PRN Constipation Sodium Chloride 50 ml 11/01/21 10:15 11/01/21 10:15 Normal Saline 50 Ml Bag IJ 50 ml DIRECTED HEMANT Administration Sodium Chloride 0 ml 11/01/21 10:16 11/01/21 10:16 Normal Saline Flush 10 Ml Syr IVP 10 ml PRN PRN Administration Allergies shellfish derived Allergy (Severe, Unverified 11/01/21 09:51) GI upset, nasal congestion Exam Narrative Exam Narrative: Physical Exam: Gen: Patient of apparent stated age, NAD Head and face: no facial or cranial abnormalities Neck: Supple, no meningismus, no occipital tenderness CV: irregularly irregular Resp: CTA B/L Abd: soft, nontender, nondistended Ext: No edema. No clubbing or cyanosis. No bony deformity. Neuro Exam: Language: fluency, naming, repetition, and comprehension intact; Mental Status: AAOx3, current events intact, fund of knowledge intact; Speech: no dysarthria Cranial nerves: Funduscopy: not performed CN II: visual baires intact CN III, IV, : extraocular movements intact, no nystagmus, pupils symmetric and reactive to light CN V: face sensation intact to LT and PP CN VII: no facial asymmetry noted CN VIII: hearing intact bilaterally CN IX, X: palate rises symmetrically CN XI: trapezius/SCM 5/5 bilaterally CN XII: protrudes tongue symmetrically Sensory: intact to LT, PP, vibration, and joint position in all extremities Motor: bulk and tone intact. Fine motor movements intact bilaterally. No pronator drift. Strength 5/5 throughout including the deltoids, biceps, triceps, wrist extensors, hip flexors, knee flexors, knee extensors, ankle flexors, and ankle extensors. Reflexes: 2+ at the biceps, triceps, brachioradialis, patella, and achilles tendons bilaterally; toes down going bilaterally; Coordination: FTN and HTS intact bilaterally Gait: slightly wide base but fairly normal looking gait Results Last Vital Signs Temp 98.4 F 11/03/21 14:52 Pulse 98 H 11/03/21 15:22 Resp 16 11/03/21 14:52 BP 108/75 11/03/21 14:52 Pulse Ox 94 11/03/21 14:52 Labs Result diagrams: 11/01/21 09:40 11/01/21 09:40
--- NOTE | 2021-11-03 18:16 | CMPROGNOTE_ITS ---
- If Service Date Differs Date of service: 11/03/21 Time of Service: 18:16 Care Management Progress Note S/O: Jimmie remains pleasant in interaction and continues to have daily visitors. CM continues to follow. 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 Anticipate he will have a new prescription for Eliquis filled through [facility] in [place], to support with coupon card. He will transport via private vehicle with family, follow up with his PCP and plan of care as prescribed.
[2021-11-03] MEDS: Apixaban 5 MG TAB PO (20:45)
[2021-11-03] MEDS: Atorvastatin 40 MG TAB 80 MG PO (20:45)
[2021-11-03] MEDS: Carvedilol 3.125 MG TAB PO (20:45)
[2021-11-04 01:59] VITALS: BP 118/66; PULSE 76; RESP 18; TEMP 36; O2SAT 92
[2021-11-04 06:50] VITALS: PULSE 81
[2021-11-04 06:53] LABS: Platelet Count 272 10^3/uL (130-400)
[2021-11-04] MEDS: Carvedilol 3.125 MG TAB PO (07:42)
[2021-11-04] MEDS: Apixaban 5 MG TAB PO (07:42)
[2021-11-04] MEDS: Empaglifozin 10 MG TAB PO (07:43)
[2021-11-04 08:14] VITALS: BP 130/71; PULSE 92; RESP 20; TEMP 36.4; O2SAT 94
--- NOTE | 2021-11-04 10:34 | PDOC.CMPRO ---
- If Service Date Differs Date of service: 11/04/21 Time of Service: 10:34 Care Management Progress Note S/O: Jimmie De La Torre: 76 year old male admitted 11/01/21 Acute CVA, Left CLOTH TRIMMER HAND Occlusion P: Anticipate Jimmie will return home when ready per MD. Anticipate he will have a new prescription for Eliquis filled through [facility] in [facility] to support with coupon card. He will transport via private vehicle with family, follow up with his PCP and plan of care as prescribed.
--- NOTE | 2021-11-04 11:51 | W.PM.DS.N ---
Date of service: 11/04/21 Time of Service: 11:52 DS: Diagnosis Discharge Diagnosis (1) Stroke: Status: Acute Asessment and Plan: Patient presented with acute confusion and ataxia and unsteady gait of sudden onset and was diagnosed with a left posterior cerebral artery occlusion at the P2 and P3 segments. CT of the brain showed no intracranial hemorrhage and no obvious infarct. Subsequent MRI scan of the brain demonstrated acute left-sided ischemic strokes involving the left thalamus left medial temporal lobe and left occipital lobe. Further review by Dr. Priscilla Buckner of his MRI scan shows she had additional strokes in his left frontal lobe as well. Some of his strokes are subacute and others were acute. These were most likely embolic strokes from his paroxysmal atrial fib. Patient was initially treated with Plavix and aspirin but after review of his MRI by the neurologist it was felt safe to start him on Eliquis. We watch him overnight after starting Eliquis 5 mg twice daily and he seemed to do okay with no adverse effects no headaches and no worsening of his neurologic symptoms. Patient was considered a candidate for TPA on arrival to the emergency department but after discussing the risks and benefits he and his decided against having TPA. Patient was started on high-dose statin and lipid panels were checked and glycohemoglobin A1c was checked. He was found to have hypercholesterolemia but a normal glycohemoglobin A1c. For details see history of hospital course under discharge plan. (2) Ataxia: Status: Acute Asessment and Plan: Patient's ataxia improved. Physical therapy evaluated him and treat him. Patient was ambulating independently. Physical therapy did not feel he needed it acute inpatient treatment and recommend he follow-up as an outpatient. (3) Cardiomyopathy: Status: Acute Asessment and Plan: Echocardiogram revealed a new moderately severe cardiomyopathy with global LV dysfunction with an ejection fraction of 30 to 35%. He was also found to have moderate mitral regurgitation and tricuspid regurgitation. Patient was started on Jardiance, carvedilol, and apixaban. He was started on atorvastatin for his cholesterol. Patient was felt to be euvolemic and not in need of diuretics at this time. Consideration was given for starting an NIKA inhibitor or an angiotensin receptor serjio but because of soft blood pressures it was decided not to initiate an ARB or an NIKA inhibitor but to pursue this as an outpatient. Greater consideration was given for starting a beta-serjio for both atrial fibrillation rate control as well as for his cardiomyopathy. Arrangements have been made for outpatient stress MPI with Tab and a follow-up with Dr. Marie in the cardiology clinic has been arranged. Recommend patient have an outpatient sleep study. (4) Paroxysmal atrial fibrillation: Status: Acute Asessment and Plan: Begin low-dose carvedilol 3.125 mg twice daily along with apixaban 5 mg p.o. twice daily. 30-day event recorder was applied to assess his atrial fibrillation burden and rate control. (5) Hyperlipidemia: Status: Acute Asessment and Plan: Total cholesterol is elevated 229 and LDL was 147 with normal triglycerides of 93 and HDL 64. TSH was normal at 3.69. Patient was started on atorvastatin 80 mg nightly. Recommend repeat lipid profile be obtained in 8 weeks. 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 IV was removed but he has small pusutule over the AC site. Patient was prescribed Keflex 500 mg tid x 5 days and told to use warm compresses over the site and report any worsening redness or swelling. (8) Discharge planning issues: Status: Resolved Asessment and Plan: Patient was discharged home in did not require any home health nursing visit patient was ambulatory and can follow-up as an outpatient with his primary care providers as well as his specialist. 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 He was unable to walk straight due to imbalance and ataxia he also had some confusion. His casts were noted his problems walking and sat him down. There is no loss of consciousness no headaches no dysarthric speech no focal paresthesias or paraparesis or acute visual changes. Does have chronic central vision loss due to macular degeneration his right eye. Symptoms occurred about 30 minutes prior to arrival to the emergency department. He was properly worked up in the emergency department cleaning a stat CT of the head neck that demonstrated an acute occlusion of his left posterior cerebral artery in the distal artery at the P2-P3 junction. The ED physician consulted with [facility] neurologist on-call who recommended TPA if the patient was willing to accept the risks. However because the patient's symptoms were improving while he was in the emergency department and after the ED doctor discussed potential bleeding risks with thrombolytic therapy the patient is decided against doing TPA. At that point he was given Plavix 300 mg loading dose and the patient had already taken his daily aspirin but was continued on aspirin 81 mg daily. Patient was admitted to the intensive care unit for close neurologic monitoring as [facility] [place] no bed capacity to accept him in transfer. The neurologist at [facility] indicated they would take him in transfer if the patient received TPA but if he did not receive TPA they recommend continued care at [facility] including dual antiplatelet therapy along with high-dose statins. Patient did well with no progression of his stroke symptoms and actually he continued to show improvement. He was transferred out of the intensive care unit the next morning. On 11/03/2021 he completed his stroke work-up with an echocardiogram and an MRI of the brain. Dr. Priscilla Buckner from neurology consulted on him on 11/03/2021. She reviewed the MRI findings which showed multiple areas of small strokes acute strokes appear to be in the pulmonary region of the left thalamus along with the left hippocampus and parahippocampal's and left occipital lobe. She also found other subacute infarcts involving the left frontal lobe and left medial temporal lobe. She felt that the size of the strokes are small enough that it would be safe to start anticoagulation for his atrial fibrillation. Echocardiogram showed borderline LV dilatation with moderately reduced LV systolic function with ejection fraction of 30 to 35% and global hypokinesis. He has a mildly dilated right ventricle with normal right ventricular systolic function. Both atria are moderately dilated. Aortic valve is without stenosis or regurgitation. However he has moderate to severe mitral regurgitation and moderate tricuspid regurgitation with an RVSP of 27 mm. His ascending aorta is dilated at 3.74 cm. Based on this I explained to Kevin and his that he has a moderate cardiomyopathy and recommend they have an outpatient stress MPI study to rule out ischemic heart disease although he presented with no symptoms of chest pain or pressure. I recommend that he quit drinking alcohol as this is a contributing cause to nonischemic cardiomyopathy and I also recommend that he have a sleep study. He is already established with Dr. 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 With respect to his cardiomyopathy I started him on Jardiance 10 mg daily along with carvedilol 3.125 mg twice a day. Because his blood pressures were on the soft side and he had a recent stroke I did not initiate an NIKA inhibitor or an angiotensin receptor serjio. This can be added at a low dose as an outpatient with close monitoring of his blood pressure. On the advice of Dr. Buckner he was started on Eliquis 5 mg twice a day for his atrial fibrillation for stroke prevention. Plavix and aspirin have been discontinued. He was kept on atorvastatin 80 mg nightly. Lipid profile demonstrated that he is not at goal his LDL is 147 and his total cholesterol is 229 with a triglycerides of 93. TSH was checked found to be normal at 3.69. Glycohemoglobin A1c was checked and found to be 5.6%. Goal is to achieve a LDL under 70. He should have follow-up lipid profile in 8 to 12 weeks. He will be discharged home on a 30-day cardiac event monitor to assess his burden of atrial fibrillation and to assess for rate control. He will be set up to see Dr. Haley Marie as an outpatient for follow-up of his cardiomyopathy. The present time he seems to be euvolemic and diuretics were not initiated at this point. I gave the patient and his information from up-to-date regarding atrial fibrillation as well as anticoagulation. He will also be given information regarding cardiomyopathy. It should be noted that patient has had previous cardiac work-up with previous echocardiogram performed on 06/19/2020, 11/09/2017, and 10/29/2015 as well as a stress MPI on 07/29/2020. His stress MPI from July 29, 2020 showed a resting EKG demonstrated atrial fibrillation and he exercised on Abdelrahman protocol achieving a workload of 9 METS and was limited by dyspnea. Patient has accelerated heart rate response to exercise achieving greater than 100% of his predicted heart rate for his age but showed no electrocardiographically changes for myocardial ischemia and his MPI scan showed normal myocardial perfusion without evidence of ischemia or prior infarct. Last echocardiogram from 06/19/2020 showed a mild reduction of global left ventricular systolic function at 51% with mild diffuse hypokinesis. RV function was normal and he had mild mitral regurgitation and mild to moderate tricuspid regurgitation. So his cardiomyopathy is relatively new and since has been a year and a half since his last stress test a repeat stress MPI with Lexiscan is indicated. If this is negative for ischemia then further evaluation for causes of nonischemic cardiomyopathy should be pursued but this will be deferred to his outpatient providers and he will be referred for outpatient cardiology follow-up. On day of discharge I noticed that his right antecubital IV site looks reddened and look like there is a small pustule. Patient was prescribed Keflex 500 mg p.o. 3 times daily for 5 days. He was advised to use warm compress and watch for worsening redness or swelling and to report immediately any fevers. Home Meds and New Rx's Prescriptions: New carvedilol 3.125 mg Tablet 3.125 mg PO BID Qty: 60 3RF Eliquis 5 mg Tablet 5 mg PO BID Qty: 60 3RF Jardiance 10 mg Tablet 10 mg PO QAM Qty: 30 3RF atorvastatin 80 mg tablet 80 mg PO QHS Qty: 30 3RF cephalexin 500 mg capsule 500 mg PO TID Qty: 15 0RF Continued albuterol sulfate [ProAir HFA] 90 mcg/actuation HFA aerosol inhaler 2 puff inhalation .COMPLEX PRN (Reason: Shortness of Breath, cough, wheezing) Qty: 8.5 3RF Rx Instructions: 2 puffs inhalation every 4-6 hours PRN; Discontinued aspirin [Adult Low Dose Aspirin] 81 mg tablet,delayed release (DR/EC) 81 mg PO DAILY 0RF Discharge Instructions Instructions: A-fib (Atrial Fibrillation) (DC), Dilated Cardiomyopathy (DC), Ischemic Stroke (DC) Referrals: Haley Marie MD [ [facility] STAFF PHYSICIAN] - 11/25/21 1:00 pm Kiera Bernal MD [ [facility] STAFF PHYSICIAN] - Dali Jefferson MD [Primary Care Provider] - 11/10/21 3:10 pm Priscilla Buckner MD [ [facility] STAFF PHYSICIAN] - 12/15/21 10:15 am Activity:: Activity as Tolerated Equipment/Supplies:: No Equipment Needed Diet:: cardiac Discharge Orders Discharge Orders: Discharge Order (Routine); Ordered 11/04/21 Ordered By: Rohan Salinas Ambulatory Orders: Cardiac Event Recorder (Routine) Timeframe: 1 Day Facility: [facility] - Location: Respiratory Therapy Ordered By: Rohan Arroyo NM MPI rest & stress grp (Routine) Timeframe: 1 Week Facility: [facility] - Location: DIAGNOSTIC IMAGING Ordered By: Rohan Arroyo DS: Summary Time Spent with Patient providing and/or coordinating discharge services: Greater than 30 minutes Specific discharge activities: Rx, med reconciliation, arranging OP tests, follow ups; Pt. education Status at Discharge Functional status at discharge: uses cane/walker Overall status at discharge: patient is progressing back to baseline Mental Status: mental status grossly normal Speech and Movement: speech and movement normal Mood: congruent mood Affect: normal affect Exam Narrative Exam Narrative: Who is alert and oriented normal speech normal cognition he is oriented to person place time circumstance. He has normal strength and range of motion in his upper extremities with no ataxia. Lungs are clear to auscultation with prolonged expiratory phase no rhonchi heart is irregularly irregular at a controlled rate. Right arm AC site has a small area of redness and a tiny pustule at the site of previous IV placement. IV has since been removed. Patient will be prescribed Keflex 500 mg p.o. 3 times daily for 5 days. Psych Mental Status: mental status grossly normal Speech and Movement: speech and movement normal Mood: congruent mood Affect: normal affect DS: Data Vitals/I&O Vitals and I&O: Vital Signs Temperature 36.4 C L 11/04/21 08:14 Temperature Source Tympanic 11/04/21 08:14 Pulse 92 H 11/04/21 08:14 Pulse Rhythm Irregular 11/04/21 07:57 Pulse 93 H 11/01/21 10:41 Respiratory Rate 20 11/04/21 08:14 Respiratory Effort 11/04/21 07:57 Respiratory Depth Normal 11/04/21 07:57 Respiratory Pattern Normal 11/04/21 07:57 Blood Pressure 130/71 11/04/21 08:14 Blood Pressure Mean 117 11/01/21 17:24 Blood Pressure Position Sitting 11/01/21 17:24 Pulse Oximetry 94 11/04/21 08:14 Oxygen Delivery Method Room Air 11/04/21 08:14 Oxygen Flow Rate 0 11/04/21 08:14 Pain Level 0 11/04/21 08:14 Intake & Output 11/03/21 11/03/21 11/04/21 11:59 23:59 11:59 Intake Total 300 / 900 600 / 900 480 / 480 Output Total 400 / 400 Balance -100 / 500 600 / 500 480 / 480 Weight 80.2 kg 79.4 kg Intake: Oral 300 / 900 600 / 900 480 / 480 Output: Urine 400 / 400 Other: Urine Color Yellow Pale Urine Appearance Clear Clear Clear Urine Odor None Comment pt voids independently into the bathroom Voiding Methods Urinal Data Completed and Pending Labs on day of discharge: Labs from last 24 hours 11/04/21 06:25 Plt Count 272 PFSH All Active Problems (Updated 11/04/21 @ 12:05 by Rohan Arroyo) Cellulitis of arm, right (Acute) Cardiomyopathy (Acute) DVT prophylaxis (Acute) 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 Social History (Updated 11/03/21 @ 20:40 by Priscilla Buckner MD) Smoking/Tobacco Use Status: Former Tobacco Use tobacco type: cigarettes Quit Date: 09/13/75 Pack-years: 5 Smoking risk assessment performed?: Yes Alcohol Intake: current Alcohol Intake frequency: 3 or more drinks per day Alcohol type: beer Drug use: Never Details: quit smoking 40 yrs ago Household members: spouse current occupation: [employer] What is your relationship status?: Panel score (0-1 are the most socially isolated patients): 1 Do you feel safe at home: Yes Do you feel safe in your relationship?: Yes
--- NOTE | 2021-11-04 16:42 | PDOC.CMDIS ---
- If Service Date Differs Date of service: 11/04/21 Time of Service: 16:42 LACE Index Scoring Tool - Questions: Length of Stay (in days): 3 Acuity (Admit via E.D.?): Yes Comorbidities: Cerebrovascular Disease E.D. 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 Several of his prescriptions are very expensive. The Eliquis cost is $593/month and the Jardiance a little over $600. AL provided [facility] in [place] with a 30 day trial coupon for the Eliquis. Jimmie stated that he would be able to afford the Jardiance for a short time. AL contacted his PCP's office ([facility]) and left a message requesting they assist him with obtaining medication coverage through the [facility] pharmacy. Violeta will follow up with his PCP and plan of care and transoport with his . Patient/Family Education Needs: Review of discharge instructions, activity, limitations, and discuss Ask Me Three.
--- NOTE | 2021-12-05 12:25 | W.CARDEVENT ---
Date of service: 12/05/21 Time of Service: 12:26 Cardiac Event Recorder Referring Provider:: Rohan Arroyo Indications:: Stroke, atrial fibrillation Cardiac Event Note: This is a 30-day event monitor ordered due to stroke and atrial fibrillation The patient was in atrial fibrillation throughout the recording. Average heart rate was 92. Maximum was 180. Minimum was 49 There was no high-grade AV block, no pauses greater than 3 seconds There were rare ventricular ectopic beats. There were approximately 10 runs of nonsustained ventricular tachycardia, and really 4-6 beats in length. The longest was 12 beats in length. No patient symptoms were reported
== END 2021-11-04 13:03 | disposition home or self-care (01) | DRG 65 ==
LOC: ER 12:52 → ICU 13:13 → MS 21:47
PROVIDERS: Admitting Provider Internal Medicine; Emergency Provider Emergency Medicine; PCP Family Medicine; Visit Provider Internal Medicine
DX: I63.432 Cerebral infarction due to embolism of left posterior cerebral artery (principal); L03.113 Cellulitis of right upper limb; I42.0 Dilated cardiomyopathy; I48.0 Paroxysmal atrial fibrillation; E78.5 Hyperlipidemia, unspecified; R27.8 Other lack of coordination; I08.1 Rheumatic disorders of both mitral and tricuspid valves; J43.9 Emphysema, unspecified; E78.00 Pure hypercholesterolemia, unspecified
CPT/HCPCS: 36415; 36416; 70496; 70498; 80053; 80061; 80307; 82962; 87635; 93005; 93270; 93306; 97161; 99222; 99285; J1650; U0005; 70551; 71045; 80320; 81003; 83036; 84443; 84484; 85025; 85049; 85610; 85730; 93010; 99223; 99232; J3490

== ENCOUNTER → 2021-11-03 07:45 | Outpatient (BNVA) | payer MEDICARE, SELFPAY | PROVIDERS: PCP Family Medicine; Referring Provider Family Medicine; Visit Provider Psychiatry & Neurology Neurology | DX: R69 Illness, unspecified (principal) ==

== ENCOUNTER 2021-11-18 00:57 | Outpatient (CLI) | payer MEDICARE, SELFPAY ==
--- NOTE | 2021-11-18 07:00 | DI.NM_ITS ---
APPROVED REPORT Exam: Exercise Treadmill Patient Location: Out-Patient Room/Bed: Stress Nurse: Chelsie Farmer RN Ordering Provider:MELISSA GOLDSMITH, Contact Number: [phone] BMI: 25.53 Baseline Rhythm: Atrial Fibrillation Comment: Incomplete RBBB Indications: Cardiomyopathy, atrial fibrillation Medical History Medical History: Atrial fibrillation, cardiomyopathy, occlusion of posterior cerebral artery due to t hrombus, stroke, smoker (currnet), ataxia, emphysema, pulmonary nodule Cardiac Medications: Carvedilol, atorvastatin, eliquis, albuterol sulfate, jardiance Allergies: Shellfish derived Cardiac Risk Factors: Hyperlipidemia, smoker (current) Previous Cardiac Procedures: None Pretest Chest Pain Characteristics: None Exercise History: Sedentary Physical Disabilities: None Lung Sounds: Diminished lower lobes Heart Sounds: Irregular Stress Test Details Test: Exercise stress testing was performed using a Abdelrahman protocol. Nuclear Acquisition: Rest Tc-99m/Stress Tc-99m 1 day Rest Isotope: Tc-99m Sestamibi. Dose: 10.0 Date: 11/18/2021 Injection Time: 0845 Stress Isotope: Tc-99m Sestamibi. Dose: 31.0 Date: 11/18/2021 Injection Time: 1014 HR Resting HR Supine: 79 bpm Max Heart Rate (APMHR): 145.155989 bpm Resting HR Standin bpm Target HR (85% APMHR): 123.020577 bpm Max HR Achieved: 160 bpm % of APMHR: 110.34 Recovery HR: 78 bpm HR response to stress: Normal HR response to stress Comment: Carvedilol not held BP Resting BP Supine: 132/80 mmHg Resting BP Standin/74 mmHg Max BP: 142/80 mmHg Recovery BP: 118/80 mmHg BP response to stress: Normal blood pressure response to stress. ECG Resting ECG: Atrial Fibrillation, incomplete RBBB Ectopy: None Stress ECG: Atrial Fibrillation, incomplete RBBB ST Change: No significant ST segment changes noted Arrhythmia: None Recovery ECG: Atrial Fibrillation, incomplete RBBB Recovery ST Change: No significant ST segment changes noted Recovery Arrhythmia: None Clinical Reason for Termination: Fatigue Stress Symptoms: General Fatigue, Dyspnea Exercise duration: 7 min32 sec Highest Stage Reached: Stage 3: 3.4 mph at 14% grade. Exercise capacity: 9.41 METs Fuentes Treadmill Score: 7.7 Rate Pressure Product: 60969 Stress ECG Conclusion 1. Resting electrocardiogram showed atrial fibrillation and incomplete right bundle branch block 2. Patient exercised on the Abdelrahman protocol and completed a workload of 9.41 METS, stopping due to fat igue 3. Normal heart rate and blood pressure response to exercise. The patient achieved greater than 100% of predicted heart rate for age 4. Electrocardiographic portion of the test was negative for myocardial ischemia 5. Atrial fibrillation was present throughout 6. See MPI report Fuentes Treadmill Score is 7.7 which is Low risk. Stress Test Summary STAGE Time (mins) Speed (mph) Grade (%) HR BP SYMPTOMS METS Supine 79 132/80 Standing 81 114/74 SpO2 93% 1 3 1.7 10 105 120/80 SpO2 86% 4.6 2 6 2.5 12 140 142/80 Mild SOB, SpO2 82% 7 3 9 3.4 14 160 Moderate SOB, SpO2 92% 10.2 1 min recovery 104 134/76 Mild SOB, SpO2 95% 3 min recovery 93 132/80 SOB resolved, SpO2 95% 6 min recovery 78 118/80 SpO2 95% MPI Conclusion There is no evidence of myocardial ischemia. There is apical thinning. EF 32%, global hypokinesis Radiologist Interpretation Radiologist agrees with City Constable's Interpretation. Radiologist Interpretation by: Pako Espinoza MD Interpretation Date/Time: 11/19/2021 08:16:41
== END 2021-11-18 01:17 ==
PROVIDERS: PCP Family Medicine; Visit Provider Internal Medicine
DX: I42.8 Other cardiomyopathies (principal); I48.0 Paroxysmal atrial fibrillation
CPT/HCPCS: 78452; 93016; 93018; 93017

== ENCOUNTER → 2021-11-25 12:45 | Outpatient (BNVA) | payer MEDICARE, SELFPAY | PROVIDERS: PCP Family Medicine; Referring Provider Family Medicine; Visit Provider Internal Medicine Cardiovascular Disease | DX: I42.9 Cardiomyopathy, unspecified (principal); I48.0 Paroxysmal atrial fibrillation; I63.9 Cerebral infarction, unspecified; R06.00 Dyspnea, unspecified | CPT/HCPCS: 99214; 99213 ==

== ENCOUNTER 2021-12-05 12:26 | Outpatient (CLI) | payer MEDICARE, SELFPAY | END 2021-12-05 12:27 | LOC: CARDO 01-13 12:26 | PROVIDERS: PCP Family Medicine; Referring Provider Internal Medicine; Visit Provider Internal Medicine Cardiovascular Disease | DX: I48.0 Paroxysmal atrial fibrillation (principal); I63.432 Cerebral infarction due to embolism of left posterior cerebral artery | CPT/HCPCS: 93272 ==

== ENCOUNTER → 2021-12-15 10:05 | Outpatient (BNVA) | payer MEDICARE, SELFPAY | PROVIDERS: PCP Family Medicine; Referring Provider Family Medicine; Visit Provider Psychiatry & Neurology Neurology | DX: I69.393 Ataxia following cerebral infarction (principal); I69.318 Other symptoms and signs involving cognitive functions following cerebral infarction; Z79.01 Long term (current) use of anticoagulants; Z79.02 Long term (current) use of antithrombotics/antiplatelets; I48.0 Paroxysmal atrial fibrillation | CPT/HCPCS: 99215 ==

== ENCOUNTER 2021-12-26 10:39 | Emergency (ER) | payer MEDICARE, SELFPAY ==
[2021-12-26 10:47] VITALS: BP 124/84; PULSE 93; RESP 16; TEMP 36.6; O2SAT 94
--- NOTE | 2021-12-26 11:15 | RT.EKG_ITS ---
APPROVED REPORT Exam: Resting ECG Reason for Exam: neck pain, hx of afib Patient Location: E HR:74 bpm ECG Measurements Heart Rate 74 AXIS MA [id number] P [id number] QRSd 101 QRS -39 QT 413 T 3 QTc 460 Conclusion Atrial fibrillation...V-rate 73-105, irreg A-activity Left axis deviation...QRS axis (-30,-90) atrial fibrillation, left axis, non ischemic
--- NOTE | 2021-12-26 11:15 | DI.RAD_ITS ---
Exam(s) XR PORTABLE CHEST AP EXAM: XR PORTABLE CHEST AP CLINICAL HISTORY: right neck pain TECHNIQUE: 2D digital imaging was performed of the chest. One image was obtained. An AP view was ob tained. COMPARISON: CR,XR XR CHEST 1V IN DI DEPT from 11/01/2021 FINDINGS: MEDIASTINUM: Normal. HEART: Normal. PULMONARY VASCULATURE: Normal. LUNGS: Clear. PLEURAL SPACE: No pleural effusion or pneumothorax. BONE:Within normal limits for the patient's age. OTHER FINDINGS:Normal. IMPRESSION: No acute pulmonary findings. DATA REPOSITORY: RADIATION DOSE DELIVERED:
--- NOTE | 2021-12-26 11:20 | W.ED.GENAD ---
Discharge Plan Disposition Patient Disposition: HOME Condition: Improving Discharge Details Chief Complaint: GenMedical Clinical Impression: Muscle spasm, Neck pain Primary Care Provider: Dali Jefferson ED Provider: Lucho Rios Home Meds and New Rx's Prescriptions: No Action albuterol sulfate [ProAir HFA] 90 mcg/actuation HFA aerosol inhaler 2 puff inhalation .COMPLEX PRN (Reason: Shortness of Breath, cough, wheezing) Qty: 8.5 3RF Rx Instructions: 2 puffs inhalation every 4-6 hours PRN; furosemide 20 mg tablet 20 mg PO DAILY 0RF carvedilol 3.125 mg Tablet 3.125 mg PO BID Qty: 60 3RF Eliquis 5 mg Tablet 5 mg PO BID Qty: 60 3RF Jardiance 10 mg Tablet 10 mg PO QAM Qty: 30 3RF atorvastatin 80 mg tablet 80 mg PO QHS Qty: 30 3RF Discharge Instructions Instructions: Muscle Spasm (ED) Additional Instructions: Use ice and/or heat as needed. Use Tylenol for anti-inflammatory effects. Please return the emergency department your pain becomes more severe or if you develop chest pain change in speech numbness weakness or any other abnormal symptoms. Medical Decision Making 76-year-old male history of CHF, recent stroke presents with atraumatic right lateral neck discomfort over the last day, no chest pain no nausea no shortness of breath no numbness no tingling no weakness, tenderness to palpation along trapezius, no carotid bruit, no skin changes no crepitus, nonmeningeal, afebrile, nontoxic, bilateral breath sounds equal, likely muscle strain of neck/muscle spasm, no appreciable mass or lymphadenopathy, unlikely carotid dissection or occlusion, unlikely spinal cord injury, less likely pneumothorax or pneumonia, less likely aortic pathology. Given age and risk factors obtain EKG and chest x-ray, analgesia anti-inflammatory close reassessment likely home Resting comfortably no acute distress. EKG nonischemic A. fib anticoagulated, x-ray unremarkable. On x-ray he can actually see thickening of the right trapezius consistent with muscle spasm. Home care instructions and return precautions given. HPI General Date/Time Provider Initiated Documentation: 12/26/21 10:46. HPI Narrative: 76-year-old male history of CHF, stroke presents with atraumatic right-sided neck and shoulder discomfort over the last day, worse with movement and palpation. Denies numbness tingling weakness or change in speech no change in physical activity. Denies chest pain shortness of breath nausea vomiting or other systemic symptoms Related Data Home Medications Medication Instructions Recorded Confirmed albuterol sulfate 90 mcg/actuation 2 puff INHALATION .COMPLEX PRN 06/19/21 12/26/21 aerosol inhaler (ProAir HFA) #8.5 g apixaban 5 mg tablet (Eliquis) 5 mg PO BID #60 tab 11/04/21 12/26/21 atorvastatin 80 mg tablet 80 mg PO QHS #30 tab 11/04/21 12/26/21 carvedilol 3.125 mg tablet 3.125 mg PO BID #60 tab 11/04/21 12/26/21 empagliflozin 10 mg tablet 10 mg PO QAM #30 tab 11/04/21 12/26/21 (Jardiance) furosemide 20 mg tablet 20 mg PO DAILY 12/15/21 12/26/21 Previous Rx's Medication Instructions Recorded albuterol sulfate 90 mcg/actuation 2 puff INHALATION .COMPLEX PRN 06/19/21 aerosol inhaler (ProAir HFA) #8.5 g apixaban 5 mg tablet (Eliquis) 5 mg PO BID #60 tab 11/04/21 atorvastatin 80 mg tablet 80 mg PO QHS #30 tab 11/04/21 carvedilol 3.125 mg tablet 3.125 mg PO BID #60 tab 11/04/21 empagliflozin 10 mg tablet 10 mg PO QAM #30 tab 11/04/21 (Jardiance) Allergies Allergy/AdvReac Type Severity Reaction Status Date / Time shellfish derived Allergy Severe GI upset, Verified 12/26/21 10:53 nasal congestion General Stated Complaint: GenMedical ANGELO: 3 Review of Systems Narrative: Review of Systems Constitutional: negative Eyes: negative ENT: negative Cardiovascular: negative Respiratory: negative Gastrointestinal: negative : negative Musculoskeletal: Right-sided neck pain Skin: negative Neurologic: negative Psych: negative PFSH All Active Problems (Updated 12/26/21 @ 12:16 by Lucho Rios MD) Muscle spasm (Acute) Neck pain (Acute) Sensorineural hearing loss (SNHL) of both ears (Acute) Memory loss (Acute) Cellulitis of arm, right (Acute) Cardiomyopathy (Acute) 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 Social History (Updated 12/23/21 @ 08:50 by Katie Toro) Smoking/Tobacco Use Status: Former Tobacco Use tobacco type: cigarettes Quit Date: 09/13/75 Pack-years: 5 Smoking risk assessment performed?: Yes Alcohol Intake: current Alcohol Intake frequency: a few times a week Alcohol type: beer Drug use: Never Substance use type: does not use Details: quit smoking 40 yrs ago current occupation: Retired-[employer] What is your relationship status?: Panel score (0-1 are the most socially isolated patients): 1 Do you feel safe at home: Yes Do you feel safe in your relationship?: Yes Exam Narrative Exam Narrative: Physical Examination General: alert, awake, cooperative, resting comfortably, no acute distress HEENT: normocephalic, atraumatic; PERRL, EOM intact, conjunctiva normal; no nasal discharge; moist mucous membranes, oral and pharyngeal mucosa normal, tolerating secretions Neck: supple, trachea midline; full ROM; tenderness to palpation along the lateral aspect of right trapezius, no crepitus no deformity, no carotid bruit, full range of motion of shoulder Chest: normal to inspection Respiratory: normal respiratory effort, speaking in full sentences, clear to auscultation, no wheezing, rales or rhonchi Cardiac: regular rate, regular rhythm, S1S2 intact, no murmurs rubs or gallops GI: abdomen soft, non-tender, non-distended; no palpable mass or hepatosplenomegaly Skin: no lesions, rashes or trauma appreciated Neuro: AAOx3, normal speech, moving all extremities; 5 out of 5 strength upper and lower extremities Psych: Appropriate mood and affect Course Vital Signs Vital signs: Vital Signs Temperature 36.6 C 12/26/21 10:47 Pulse 93 H 12/26/21 10:47 Respiratory Rate 16 12/26/21 10:47 Blood Pressure 124/84 12/26/21 10:47 Pulse Oximetry 94 12/26/21 10:47 Temperature 36.6 C 12/26/21 10:47 Temperature Source Skin 12/26/21 10:47 Pulse 93 H 12/26/21 10:47 Respiratory Rate 16 12/26/21 10:47 Respiratory Effort 12/26/21 10:47 Blood Pressure 124/84 12/26/21 10:47 Blood Pressure Position Supine 12/26/21 10:47 Pulse Oximetry 94 12/26/21 10:47 Oxygen Delivery Method Room Air 12/26/21 10:47 Oxygen Flow Rate 0 12/26/21 10:47 Pain Level 5 12/26/21 10:47
[2021-12-26] MEDS: Lidocaine 5% Patch 1 PATCH TP (11:54)
[2021-12-26] MEDS: Ketorolac 15 MG/ML VIAL IM (11:54)
== END 2021-12-26 12:21 | disposition home or self-care (01) ==
PROVIDERS: Emergency Provider Emergency Medicine; PCP Family Medicine
DX: M62.838 Other muscle spasm (principal); M54.2 Cervicalgia; I48.91 Unspecified atrial fibrillation
CPT/HCPCS: 93005; 96372; 99284; 71045; 93010; 99283; J1885

== ENCOUNTER → 2022-01-06 00:57 | Outpatient (CLI) | payer MEDICARE, SELFPAY ==
--- NOTE | 2022-01-06 10:36 | DI.US_ITS ---
APPROVED REPORT EXAM: Comprehensive 2D, Doppler, and color-flow Echocardiogram Patient Location: Out-Patient Fishing Vessel Mate: Zabrina Pierre RDCS (AE) Indications: Cardiomyopathy Other Information Study Quality: Adequate Conclusion Normal left ventricular wall thickness and chamber size. Estimated ejection fraction is 45%. There is global hypokinesis The right ventricle appears grossly normal in size and systolic function Both atria are mildly enlarged Trileaflet aortic valve without stenosis or regurgitation Normal mitral valve with moderate to severe regurgitation Normal tricuspid valve with moderate regurgitation. Estimated right ventricular systolic pressure is 29 mmHg Compared to previous echocardiogram from October, left ventricular systolic function has improved fr om 30-35 up to 45% Wall motion Left Ventricle The left ventricle is normal size. Left ventricular systolic function is moderately decreased. There is normal left ventricular wall thickness. There is global hypokinesis of the left ventricle. There i s no ventricular septal defect visualized. LVEF is 45%. Right Ventricle Right ventricle is grossly normal in size. Right ventricular systolic function is grossly normal. The RVSP is 29.4mmHg. Atria Left atrium is mildly dilated. Right atrium is mildly dilated. The interatrial septum is intact with no evidence for an atrial septal defect. Aortic Valve The aortic valve is normal in structure. Aortic valve is trileaflet. There is no aortic valvular sten osis. No aortic regurgitation is present. Mitral Valve The mitral valve is normal in structure. No evidence of mitral valve stenosis. Moderate to severe finn ral regurgitation Tricuspid Valve The tricuspid valve is normal in structure. There is no tricuspid valve stenosis. Moderate tricuspid regurgitation. Pulmonic Valve The pulmonary valve is normal in structure. There is no pulmonic valvular stenosis. Trace pulmonic re gurgitation. Great Vessels The aortic root is normal in size. Aortic arch is normal in caliber. IVC is normal in size and collap ses >50% with inspiration. Pericardium There is no pericardial effusion. 2D Dimensions IVSD d PLAX 0.91 cm M: 0.6-1.2 LV Vol A2C d MOD 98.6 mL LVPW d PLAX 0.92 cm M: 0.6 - 1.2 LV Vol A4C d MOD 99.5 mL LVID d PLAX 5.54 cm M: 4.2 - 5.8 LA vol/ BSA A2C s A-L 35.6 mL/m2 LVDs 4.30 cm M: 2.5 - 4.0 LA vol/ BSA A4C s A-L 33.2 mL/m2 Ao Root d 3.30 cm M: 3.1 - 3.7 LA Vol/ BSA Biplane s A-L 35.5 mL/m2 RA Area A4C 21.26 cm2 LA Area A4C s MOD 21.22 cm2 RA Vol/ BSA A4C s A-L 30.5 mL/m2 LA Area A2C s MOD 22.70 cm2 Ao Asc Diam d 3.79 cm M: 2.6 - 3.4 LV EF A4C MOD 45.5 % LV EF Teichholz 43.7 % LV EF A2C MOD 40.4 % LVEF (Laienz's) 42.27 % M: 52 - 72 LV EF Biplane MOD 42.3 % LV Volume 75.03 mL M: 62 - 150 SV 42.33 mL LV Volume Index 37.51 mL/m2 M: 34 - 74 SV Index 21.11 mL/m2 LV Vol Biplane MOD 100.1 mL FS 21.80 % LV Diastology MV E' medial 0.077 (>0.07 m/s) MV E Vmax 0.76 (0.4-1.3 m/s) LV E/e MED 9.80 (<14) MV E' lateral 0.118 (>0.1 m/s) LV E/e LAT 6.40 (<14) MV E/E' medial 9.81 MV E/E' lateral 6.40 Aortic Valve LVOT Area 3.96 cm2 AoV Area Vmax 3.09 cm2 LVOT Vmax 0.84 m/s AoV Area/ BSA (Vmax) 1.54 cm2/m2 LVOT Mean Tab. 0.59 m/s HERACLIO Mean Tab. 2.79 cm2 LVOT Peak Grad 2.8 mmHg HERACLIO Mean Tab. Index 1.39 cm2/m2 LVOT Mean Grad 1.6 mmHg LVOT VTI 0.145 m LVOT Diam s 2.20 cm AoV Vmax 1.08 m/s Velocity Ratio 0.77 AoV Mean Tab. 0.84 m/s AoV Peak Grad 4.7 mmHg LVOT SV 57.51 mL AoV Mean Grad 3.0 mmHg AoV VTI 0.180 m AoV Area VTI 3.19 cm2 AoV Area/ BSA (VTI) 1.59 cm/m2 Mitral Valve MV DT 207 (160-240 msec) MR Vmax 4.89 m/s MV PHT 60 msec MR VTI 1.620 m MV Area PHT 3.66 cm2 MR Peak Grad 95.6 mmHg MV VTI 0.259 m MR Mean Grad 64.2 mmHg MV VTI Annulus 0.260 m MR PISA Radius 0.63 cm MV Area VTI 2.23 (4.0-6.0 cm2) MR EROA 0.18 cm2 MR Aliasing Velocity 0.35 m/s MR PISA 2.47 cm2 Pulmonary Valve PV Vmax 0.78 (0.5-1.5 m/s) RVOT Peak Gr. 1.27 mmHg PV Peak Grad 2.4 mmHg RVOT Mean Gr. 0.60 mmHg PV Mean Grad 1.3 mmHg RVOT VTI 0.108 m PV VTI 0.129 m RVOT Vmax 0.56 m/s Tricuspid Valve TR Peak Grad 26.3 mmHg TR Vmax 2.57 m/s RA Pressure 3.00 mmHg RVSP (TR) 29.4 mmHg
== END ==
PROVIDERS: PCP Family Medicine; Visit Provider Internal Medicine Cardiovascular Disease
DX: I42.9 Cardiomyopathy, unspecified (principal); Z12.11 Encounter for screening for malignant neoplasm of colon; Z12.12 Encounter for screening for malignant neoplasm of rectum
CPT/HCPCS: 93306

== ENCOUNTER 2022-01-29 21:00 | Outpatient (REF) | payer MEDICARE, SELFPAY ==
[2022-01-29 21:17] LABS: Anion Gap 6.6 mmol/L (3-11); BUN 13 mg/dL (7-18); CO2 27.4 mmol/L (21.0-32.0); Calcium 8.8 mg/dL (8.5-10.1); Chloride 102 mmol/L (98-107); Glucose 88 mg/dL (74-106); Potassium 3.8 mmol/L (3.5-5.1); Sodium 136 mmol/L (136-145)
== END 2022-01-29 21:01 | disposition home or self-care (01) ==
LOC: LBN 21:00
PROVIDERS: PCP Family Medicine; Visit Provider Family Medicine
DX: U07.1 COVID-19 (principal)
CPT/HCPCS: 80048

== ENCOUNTER 2022-02-17 02:00 | Outpatient (CLI) | payer MEDICARE, SELFPAY ==
[2022-02-17 13:04] LABS: Vitamin B12 408 pg/mL (193-986)
== END 2022-02-17 02:01 | disposition home or self-care (01) ==
LOC: LBO 02:00
PROVIDERS: PCP Family Medicine; Visit Provider Psychiatry & Neurology Neurology
DX: G62.89 Other specified polyneuropathies (principal); R41.3 Other amnesia
CPT/HCPCS: 36415; 82607

== ENCOUNTER → 2022-02-26 12:44 | Outpatient (BNVA) | payer MEDICARE, SELFPAY | PROVIDERS: PCP Family Medicine; Referring Provider Family Medicine; Visit Provider Internal Medicine Cardiovascular Disease | DX: R07.9 Chest pain, unspecified (principal); I42.9 Cardiomyopathy, unspecified; I48.0 Paroxysmal atrial fibrillation; I50.20 Unspecified systolic (congestive) heart failure; I34.0 Nonrheumatic mitral (valve) insufficiency; I63.9 Cerebral infarction, unspecified; R06.00 Dyspnea, unspecified | CPT/HCPCS: 99214; 99213 ==

== ENCOUNTER 2022-03-12 12:39 | Outpatient (CLI) | payer MEDICARE, SELFPAY ==
[2022-03-12 09:24] LABS: Anion Gap 6.2 mmol/L (3-11); BUN 19 mg/dL (7-18); CO2 28.8 mmol/L (21.0-32.0); CREATININE 1.1 mg/dL (0.70-1.30); Calcium 9.1 mg/dL (8.5-10.1); Chloride 104 mmol/L (98-107); Glucose 94 mg/dL (74-106); Sodium 139 mmol/L (136-145)
== END 2022-03-12 12:40 | disposition home or self-care (01) ==
LOC: LBO 12:40
PROVIDERS: PCP Family Medicine; Visit Provider Family Medicine
DX: I50.9 Heart failure, unspecified (principal); F10.99 Alcohol use, unspecified with unspecified alcohol-induced disorder; I48.0 Paroxysmal atrial fibrillation
CPT/HCPCS: 36415; 80048

== ENCOUNTER → 2022-03-19 10:20 | Outpatient (BNVA) | payer MEDICARE, SELFPAY | PROVIDERS: PCP Family Medicine; Referring Provider Family Medicine; Visit Provider Internal Medicine Cardiovascular Disease | DX: I34.0 Nonrheumatic mitral (valve) insufficiency (principal); I42.9 Cardiomyopathy, unspecified; I48.0 Paroxysmal atrial fibrillation | CPT/HCPCS: 99214; 99213 ==

== ENCOUNTER → 2022-03-25 09:40 | Outpatient (BNVA) | payer MEDICARE, SELFPAY | PROVIDERS: PCP Family Medicine; Referring Provider Family Medicine; Visit Provider Psychiatry & Neurology Neurology | DX: I69.318 Other symptoms and signs involving cognitive functions following cerebral infarction (principal); I69.393 Ataxia following cerebral infarction; I48.0 Paroxysmal atrial fibrillation | CPT/HCPCS: 99214 ==

== ENCOUNTER 2022-04-27 18:25 | Outpatient (REF) | payer MEDICARE, SELFPAY ==
[2022-04-27 14:14] LABS: Anion Gap 9.4 mmol/L (3-11); BUN 21 mg/dL (7-18); CO2 25.6 mmol/L (21.0-32.0); Calcium 9.4 mg/dL (8.5-10.1); Chloride 104 mmol/L (98-107); Glucose 102 mg/dL (74-106); Potassium 4.1 mmol/L (3.5-5.1); Sodium 139 mmol/L (136-145)
[2022-04-28 09:35] LABS: Hepatitis C Ab w Rflx HCV PCR Negative (Negative)
== END 2022-04-27 18:26 | disposition home or self-care (01) ==
LOC: NCHCN 18:25
PROVIDERS: PCP Family Medicine; Visit Provider Family Medicine
DX: I50.9 Heart failure, unspecified (principal); Z11.59 Encounter for screening for other viral diseases
CPT/HCPCS: 80048; 86803

== ENCOUNTER 2022-06-08 17:09 | Outpatient (REF) | payer MEDICARE, SELFPAY ==
--- NOTE | 2022-06-08 16:10 | SKI_PTH ---
PATIENT: Jimmie Elliott LOC: [facility]#:[id number] AGE/SX: 76/M ROOM: RE06/08/[address]: Dali Jefferson : 1945 BED: DIS: 06/08/2022 SPEC #: [id number] RECD: 06/08/22 18:20 STATUS: DARNELL BUCKLEY #: [id number] CECILY: 06/08/22 16:[address]: Dali Jefferson DEPT: Surgical Specimen RECD BY: Henna Duque Tissues: 1 - SKIN BIOPSY(SHAVE/PUNCH) Procedures: SKIN LEVEL 4 Comments: [id number]
== END 2022-06-08 17:10 | disposition home or self-care (01) ==
LOC: NCHCN 17:09
PROVIDERS: PCP Family Medicine; Visit Provider Family Medicine
DX: R22.31 Localized swelling, mass and lump, right upper limb (principal); L98.9 Disorder of the skin and subcutaneous tissue, unspecified
CPT/HCPCS: 88305

== ENCOUNTER → 2022-06-23 09:00 | Outpatient (BNVA) | payer MEDICARE, SELFPAY | PROVIDERS: PCP Family Medicine; Visit Provider Internal Medicine Cardiovascular Disease | DX: R51.9 Headache, unspecified (principal); I34.0 Nonrheumatic mitral (valve) insufficiency; I42.9 Cardiomyopathy, unspecified; I48.0 Paroxysmal atrial fibrillation; I50.20 Unspecified systolic (congestive) heart failure | CPT/HCPCS: 99214 ==

== ENCOUNTER → 2022-09-23 10:42 | Outpatient (BNVA) | payer MEDICARE, SELFPAY | PROVIDERS: PCP Family Medicine; Referring Provider Family Medicine; Visit Provider Psychiatry & Neurology Neurology | DX: I69.318 Other symptoms and signs involving cognitive functions following cerebral infarction (principal); I69.393 Ataxia following cerebral infarction; I69.311 Memory deficit following cerebral infarction; R06.02 Shortness of breath; I48.0 Paroxysmal atrial fibrillation; G62.9 Polyneuropathy, unspecified | CPT/HCPCS: 99214 ==

== ENCOUNTER 2023-02-22 10:52 | Outpatient (REF) | payer MEDICARE, SELFPAY ==
[2023-02-22 15:49] LABS: HGB 16.4 g/dL (13.5-17.5); MCH 30.7 pg (27.0-33.0); MCHC 33.5 % (32.0-36.0); MCV 92 fL (80-95); MPV 9.5 fL (8.0-11.0); Platelet Count 318 10^3/uL (130-400); RBC 5.34 10^6/uL (4.36-5.78); RDW 13.3 % (11.8-14.1); RDW-SD 45.1 fL; WBC 6.69 10^3/uL (4.4-10.8)
[2023-02-22 16:02] LABS: BUN 16 mg/dL (7-18); Calcium 9.4 mg/dL (8.5-10.1); Calculated LDL 97 mg/dL (<100); Chloride 104 mmol/L (98-107); Cholesterol 176 mg/dL (<200); Glucose 106 mg/dL (74-106); HDL Cholesterol 70 mg/dL (40-60); Potassium 4.2 mmol/L (3.5-5.1); Sodium 140 mmol/L (136-145); Triglyceride 45 mg/dL (<150)
== END 2023-02-22 10:53 | disposition home or self-care (01) ==
LOC: NCHCN 10:52
PROVIDERS: PCP Family Medicine; Visit Provider Family Medicine
DX: E78.5 Hyperlipidemia, unspecified (principal); I50.9 Heart failure, unspecified; R06.09 Other forms of dyspnea; Z79.899 Other long term (current) drug therapy
CPT/HCPCS: 80048; 80061; 85027

== ENCOUNTER 2023-03-15 01:07 | Outpatient (CLI) | payer MEDICARE, SELFPAY ==
--- NOTE | 2023-03-15 08:25 | DI.US_ITS ---
Exam(s) US AAA SCREENING EXAM: US AAA SCREENING CLINICAL HISTORY: HX OF SMOKING, Z87.891 COMPARISON: No exams were available for comparison FINDINGS: Abdominal Aorta: Proximal: 2.3 cm Mid: 2.2 cm Distal: 1.9 cm Iliacs: Right: 1.3 cm Left: 1.3 cm IMPRESSION: No evidence of abdominal aortic aneurysm. DATA REPOSITORY:
== END 2023-03-15 01:27 ==
LOC: DI 01:07
PROVIDERS: PCP Family Medicine; Visit Provider Family Medicine
DX: Z87.891 Personal history of nicotine dependence (principal); Z13.6 Encounter for screening for cardiovascular disorders
CPT/HCPCS: 76706

== ENCOUNTER → 2023-03-24 09:19 | Outpatient (BNVA) | payer MEDICARE, SELFPAY | PROVIDERS: PCP Family Medicine; Visit Provider Psychiatry & Neurology Neurology | DX: I69.318 Other symptoms and signs involving cognitive functions following cerebral infarction (principal); I69.311 Memory deficit following cerebral infarction; I69.393 Ataxia following cerebral infarction; I48.0 Paroxysmal atrial fibrillation; Z79.01 Long term (current) use of anticoagulants | CPT/HCPCS: 99213 ==

== ENCOUNTER 2023-06-21 08:27 | Emergency (ER) | payer MEDICARE, SELFPAY ==
[2023-06-21 08:29] VITALS: BP 109/77; PULSE 77; RESP 18; TEMP 36.4; O2SAT 96
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
[2023-06-21] MEDS: Acetaminophen 500 MG TAB 1000 MG PO (08:48)
== END 2023-06-21 09:46 | disposition home or self-care (01) ==
PROVIDERS: Emergency Provider Student in an Organized Health Care Education/Training Program; PCP Family Medicine
DX: M79.644 Pain in right finger(s) (principal); S60.011A Contusion of right thumb without damage to nail, initial encounter; W22.8XXA Striking against or struck by other objects, initial encounter; Y93.89 Activity, other specified; I48.91 Unspecified atrial fibrillation; Z79.01 Long term (current) use of anticoagulants; I50.9 Heart failure, unspecified; E11.9 Type 2 diabetes mellitus without complications
CPT/HCPCS: 99283; 73140

== ENCOUNTER 2023-07-27 02:07 | Emergency (ER) | payer MEDICARE, SELFPAY ==
[2023-07-27] VITALS (40 sets, daily range): BP systolic 103–129; BP diastolic 72–95; PULSE 63–98; RESP 11–25; TEMP 36.7; O2SAT 83–100
--- NOTE | 2023-07-27 01:45 | RT.EKG_ITS ---
APPROVED REPORT Exam: Resting ECG Reason for Exam: chest pain Patient Location: E HR:91 bpm ECG Measurements Heart Rate 91 AXIS WY [id number] P [id number] QRSd 103 QRS -52 QT 374 T 14 QTc 462 Conclusion Atrial fibrillation...V-rate 67-124, irreg A-activity Left axis deviation...QRS axis (-30,-90) I have reviewed and interpreted ECG and agree with software generated interpretation. No stemi
--- NOTE | 2023-07-27 02:10 | W.ED.GENAD ---
Discharge Plan Disposition Patient Disposition: Home Condition: Good Discharge Details Chief Complaint: Chest Pain Clinical Impression: Acute chest wall pain Primary Care Provider: Dali Jefferson ED Provider: Jeff Iyer Home Meds and New Rx's Prescriptions: No Action PreserVision AREDS 4,296 mcg-226 mg-90 mg capsule 1 cap PO BID carvedilol [Coreg] 12.5 mg tablet 12.5 mg PO BID Rx Instructions: must administer with a meal/food spironolactone 25 mg tablet 25 mg PO DAILY furosemide 40 mg tablet 40 mg PO DAILY Qty: 90 3RF Eliquis 5 mg Tablet 5 mg PO BID Qty: 60 3RF Jardiance 10 mg Tablet 10 mg PO QAM Qty: 30 3RF atorvastatin 80 mg tablet 80 mg PO QHS Qty: 30 3RF Discharge Instructions Instructions: Chest Wall Pain (ED) Additional Instructions: At this time your work-up shows no evidence of pneumonia, tumor or mass, or heart attack. Please take Tylenol as needed for pain. Avoid spicy foods. If you notice any worsening of your symptoms, or any new symptoms such as vomiting, diarrhea, fever, chills, shortness of breath, chest pain, numbness, weakness, or fainting , please return immediately to the emergency department for reevaluation. Please follow up with your primary care provider as soon as possible for reassessment and reevaluation. As always, it was a pleasure participating in your medical care today. Referrals: Dali Jefferson MD [Primary Care Provider] - Medical Decision Making This is a 78-year-old male with a past medical history of mild heart failure, paroxysmal A-fib previously on Eliquis but no longer on Eliquis per patient, high cholesterol, type 2 diabetes, pulmonary nodules, who presents today for evaluation of chest pain. Patient states that he woke up this evening short of breath with right-sided chest pain. Slight pleuritic component. He denies cough fever chills. Called the EMS, by the time they arrived pain had notably improved. He was given 4 baby aspirin total, 2 from his , 2 from EMS. He describes the pain as sharp in the right upper chest. It is reproducible on palpation. He denies any history of heart attack. He does have history of a previous stroke. No other complaints at this time. No other modifying factors. He denies any recent exertional dyspnea or any recent gradual onset chest pain. Exam demonstrates a well-appearing male, vital signs stable. EKG shows no evidence of STEMI. Differential includes musculoskeletal etiology, PE on the differential but less likely. We will get a D-dimer. Cardiac etiologies of considered. Will evaluate for these, monitor closely apply Lidoderm patch and reassess. 5:37 AM Chest x-ray read as negative per virtual radiology. Laboratory work-up notably unremarkable. proBNP slightly elevated however his symptoms are notably clinically inconsistent with CHF. Initial and delta troponin are normal. Chest pain resolved after Lidoderm patch. Patient stable for discharge. Lipase normal. Symptoms inconsistent with ACS STEMI PE or dissection. I have extensively reviewed the treatment plan and discharge instructions with the patient. I have addressed all patient concerns at this time. The patient was made aware of what symptoms to monitor for that would warrant a return to the emergency department. Discussed the plan with the patient, they demonstrate verbal understanding and agreement with our assessment and plan at this time. The documentation in this chart was dictated using [employer] dictation software. Please excuse any dictation errors. FINDINGS: Lungs: Unremarkable. No consolidation. Pleural spaces: Unremarkable. No pleural effusion. No pneumothorax. Heart/Mediastinum: Unremarkable. No cardiomegaly. Bones/joints: Unremarkable. IMPRESSION: No acute findings. Thank you for allowing us to participate in the care of your patient. Dictated and Authenticated by: Harvey Yang MD 07/27/2023 4:21 AM Eastern Time ([place] & [place]) HPI General Date/Time Provider Initiated Documentation: 07/27/23 02:10. HPI Narrative: This is a 78-year-old male with a past medical history of mild heart failure, paroxysmal A-fib previously on Eliquis but no longer on Eliquis per patient, high cholesterol, type 2 diabetes, pulmonary nodules, who presents today for evaluation of chest pain. Patient states that he woke up this evening short of breath with right-sided chest pain. Slight pleuritic component. He denies cough fever chills. Called the EMS, by the time they arrived pain had notably improved. He was given 4 baby aspirin total, 2 from his , 2 from EMS. He describes the pain as sharp in the right upper chest. It is reproducible on palpation. He denies any history of heart attack. He does have history of a previous stroke. No other complaints at this time. No other modifying factors. He denies any recent exertional dyspnea or any recent gradual onset chest pain. Related Data Home Medications Medication Instructions Recorded Confirmed apixaban 5 mg tablet (Eliquis) 5 mg PO BID #60 tabs 11/04/21 07/27/23 atorvastatin 80 mg tablet 80 mg PO QHS #30 tabs 11/04/21 07/27/23 empagliflozin 10 mg tablet 10 mg PO QAM #30 tabs 11/04/21 07/27/23 (Jardiance) carvedilol 12.5 mg tablet (Coreg) 12.5 mg PO BID 03/19/22 07/27/23 spironolactone 25 mg tablet 25 mg PO DAILY 03/19/22 07/27/23 furosemide 40 mg tablet 40 mg PO DAILY #90 tabs 03/01/23 07/27/23 vitamins A,C,A-krmw-wxiwrp 4,296 1 cap PO BID 03/24/23 07/27/23 mcg-226 mg-90 mg capsule (PreserVision AREDS) Previous Rx's Medication Instructions Recorded apixaban 5 mg tablet (Eliquis) 5 mg PO BID #60 tabs 11/04/21 atorvastatin 80 mg tablet 80 mg PO QHS #30 tabs 11/04/21 empagliflozin 10 mg tablet 10 mg PO QAM #30 tabs 11/04/21 (Jardiance) furosemide 40 mg tablet 40 mg PO DAILY #90 tabs 03/01/23 Allergies Allergy/AdvReac Type Severity Reaction Status Date / Time shellfish derived Allergy Severe GI upset, Verified 07/27/23 02:14 nasal congestion General ANGELO: 4 Review of Systems All systems reviewed & are unremarkable except as noted in HPI and below PFSH All Active Problems (Updated 07/27/23 @ 05:37 by Jeff Iyer DO) Acute chest wall pain (Acute) Excessive cerumen in both ear canals (Acute) Pharyngoesophageal dysphagia (Acute) GERD (gastroesophageal reflux disease) (Chronic) Mitral regurgitation (Chronic) Systolic heart failure (Acute) Sensorineural hearing loss (SNHL) of both ears (Acute) Memory loss (Acute) Cellulitis of arm, right (Acute) Cardiomyopathy (Acute) 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 Social History Smoking/Tobacco Use Status: Unknown Smoking risk assessment performed?: Yes Alcohol Intake: current Alcohol Intake frequency: a few times a week Alcohol type: beer Drug use: Never Substance use type: does not use Details: quit smoking 40 yrs ago Household members: spouse Housing: house current occupation: Retired-[employer] What is your relationship status?: Panel score (0-1 are the most socially isolated patients): 1 Do you feel safe at home: Yes Do you feel safe in your relationship?: Yes Exam Narrative Exam Narrative: 1.Const: Well-nourished, Well-developed, appearing stated age 2.Eyes: PERRL, no conjunctival injection, and symmetrical lids. 3.ENT: Atraumatic external nose and ears. Moist MM. Neck: Symmetric, trachea midline, No thyromegaly. 4.CVS: +S1/S2, No murmurs or gallops. Peripheral pulses 2+ and equal in all extremities. Brisk capillary refill in all extremities. 5.RESP: Unlabored respiratory effort. Clear to auscultation bilaterally. No wheezes rales or rhonchi. Focal reproducible component of his chest pain which elicits the entirety of his pain in the right upper chest. No rash. No signs of trauma. 6.GI: Soft, Nontender/Nondistended, No hepatosplenomegaly. No guarding or rebound. 7.MSK: Normocephalic/Atraumatic, Extremities w/o deformity or ttp No cyanosis or clubbing, Normal movement of all extremities 8.Skin: Warm, Dry. No rashes or lesions. 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 Sensation grossly intact, no focal neurologic deficits. 10.Psych: (AAO) x3. Appropriate mood and affect
[2023-07-27 02:21] LABS: Abs Immature Grans 0.02 10^3/uL (0.0-0.06); Absolute Basophil Count 0.05 10^3/uL (0.0-0.2); Absolute Eosinophil Count 0.41 10^3/uL (0.0-0.7); Absolute Lymphocyte Count 1.64 10^3/uL (1.2-3.4); Absolute Monocyte Count 0.55 10^3/uL (0.1-0.8); Absolute Neutrophil Count 4.17 10^3/uL (1.2-6.7); BE (Venous) 3 mmol/L (-2-3); Basophils % 0.7; HCO3 (Venous) 28 mmol/L (23-28); HCT 46.4 % (40.0-50.0); HGB 15.4 g/dL (13.5-17.5); Immature Grans % 0.3; MCH 30.3 pg (27.0-33.0); MCHC 33.2 % (32.0-36.0); MCV 91 fL (80-95); MPV 8.9 fL (8.0-11.0); O2 Sat (Venous) 85 %; Platelet Count 236 10^3/uL (130-400); RBC 5.09 10^6/uL (4.36-5.78); RDW 13.2 % (11.8-14.1); RDW-SD 44.7 fL; TCO2 (Venous) 24 mmol/L (24-29); WBC 6.84 10^3/uL (4.4-10.8); pCO2 (Venous) 46 mmHg (41-51); pH (Venous) 7.39 (7.31-7.41); pO2 (Venous) 49 mmHg
[2023-07-27] MEDS: Lidocaine 5% Patch 1 PATCH TP (02:22)
[2023-07-27] MEDS: Acetaminophen 500 MG TAB 1000 MG PO (02:23)
[2023-07-27 02:37] LABS: INR 1.1 (0.9-1.1); PTT Activated 23.9 sec (23.6-32.8)
[2023-07-27 02:46] LABS: ALT 67 U/L (16-63); AST 31 U/L (15-37); Albumin 3.5 g/dL (3.4-5.0); Alkaline Phosphatase 78 U/L (46-116); Anion Gap 8.2 mmol/L (3-11); BUN 11 mg/dL (7-18); Bilirubin, Total 0.5 mg/dL (0.2-1.0); CO2 26.8 mmol/L (21.0-32.0); CREATININE 0.9 mg/dL (0.70-1.30); Calcium 9.5 mg/dL (8.5-10.1); Chloride 105 mmol/L (98-107); Estimated GFR 87.96 (mL/min/1.73m2); Glucose 112 mg/dL (74-106); Lipase 73 U/L (16-77); NT-proBNP 1283 pg/mL (<300); Potassium 3.8 mmol/L (3.5-5.1); Sodium 140 mmol/L (136-145); Total Protein 7.1 g/dL (6.4-8.2); Troponin I < 50 ng/L (<or=60)
[2023-07-27 02:54] LABS: D-Dimer 418 ng/mlFEU (<500)
--- NOTE | 2023-07-27 03:00 | DI.RAD_ITS ---
Exam(s) XR PORTABLE CHEST AP EXAM: XR PORTABLE CHEST AP CLINICAL HISTORY: right upper chest pain and SOB TECHNIQUE: 2D digital imaging was performed. COMPARISON: CR XR PORTABLE CHEST AP from 12/26/2021 FINDINGS: LUNGS: No focal infiltrate. Mild chronic fibrotic changes. No pleural abnormality seen. HEART: Enlarged compared to prior. AORTA: Normal diameter. BONES: Unremarkable for age. Soft tissues: Unremarkable. IMPRESSION: No acute findings. DATA REPOSITORY: RADIATION DOSE DELIVERED:
[2023-07-27] MEDS: Ketorolac 15 MG/ML VIAL IVP (03:51)
--- NOTE | 2023-07-27 04:22 | DI.VRAD_ITS ---
PROCEDURE INFORMATION: Exam: XR Chest Exam date and time: 07/27/2023 3:23 AM Age: 78 years old Clinical indication: Right-sided; Patient HX: Right upper chest pain and SOB TECHNIQUE: Imaging protocol: Radiologic exam of the chest. Views: 1 view. COMPARISON: CR XR PORTABLE CHEST AP 12/26/2021 11:31 AM FINDINGS: Lungs: Unremarkable. No consolidation. Pleural spaces: Unremarkable. No pleural effusion. No pneumothorax. Heart/Mediastinum: Unremarkable. No cardiomegaly. Bones/joints: Unremarkable. IMPRESSION: No acute findings. Dictated and Authenticated by: Harvey Yang MD. Ordering:KATIE Aguilar MD
[2023-07-27 05:27] LABS: Troponin I < 50 ng/L (<or=60)
== END 2023-07-27 05:59 | disposition home or self-care (01) ==
PROVIDERS: Emergency Provider Student in an Organized Health Care Education/Training Program; PCP Family Medicine
DX: R07.89 Other chest pain (principal); R06.02 Shortness of breath; E78.5 Hyperlipidemia, unspecified; E11.9 Type 2 diabetes mellitus without complications; R91.8 Other nonspecific abnormal finding of lung field; Z79.01 Long term (current) use of anticoagulants
CPT/HCPCS: 36415; 80053; 82805; 83690; 93005; 99283; 71045; 83880; 84484; 85025; 85379; 85610; 85730; 93010; J1885

== ENCOUNTER → 2023-11-22 14:44 | Outpatient (BNVA) | payer MEDICARE, SELFPAY | PROVIDERS: PCP Family Medicine; Referring Provider Family Medicine; Visit Provider Psychiatry & Neurology Neurology | DX: I63.9 Cerebral infarction, unspecified (principal); R13.10 Dysphagia, unspecified; R51.9 Headache, unspecified; I48.0 Paroxysmal atrial fibrillation; R41.3 Other amnesia | CPT/HCPCS: 99215 ==

== ENCOUNTER 2023-11-23 09:35 | Outpatient (CLI) | payer MEDICARE, SELFPAY ==
[2023-11-23 09:37] LABS: ESR 9 mm/hr (0-20)
[2023-11-23 10:19] LABS: C-Reactive Protein < 0.50 mg/dL (<or=0.5)
== END 2023-11-23 09:36 | disposition home or self-care (01) ==
LOC: LBO 09:35
PROVIDERS: PCP Family Medicine; Visit Provider Psychiatry & Neurology Neurology
DX: R51.9 Headache, unspecified (principal)
CPT/HCPCS: 36415; 85652; 86140

== ENCOUNTER → 2024-01-24 08:15 | Outpatient (BNVA) | payer MEDICARE, SELFPAY | PROVIDERS: PCP Family Medicine; Referring Provider Family Medicine; Visit Provider Psychiatry & Neurology Neurology | DX: I63.9 Cerebral infarction, unspecified (principal); I48.0 Paroxysmal atrial fibrillation; R41.3 Other amnesia; R06.09 Other forms of dyspnea; R13.10 Dysphagia, unspecified | CPT/HCPCS: 99214 ==

== ENCOUNTER 2024-05-01 11:48 | Inpatient (IN) | payer MEDICARE, SELFPAY ==
[2024-05-01] VITALS (105 sets, daily range): BP systolic 104–124; BP diastolic 62–95; PULSE 77–99; RESP 12–41; TEMP 36.2–36.9; O2SAT 83–98
--- NOTE | 2024-05-01 11:45 | RT.EKG_ITS ---
APPROVED REPORT Exam: Resting ECG Reason for Exam: Altered mental status Patient Location: E HR:85 bpm ECG Measurements Heart Rate 85 AXIS WY [id number] P [id number] QRSd 101 QRS -39 QT 360 T 4 QTc 428 Conclusion Atrial fibrillation...V-rate 68-106, irreg A-activity Left axis deviation...QRS axis (-30,-90) afib, narrow complex, normal axis, non iscemic
--- NOTE | 2024-05-01 12:15 | DI.RAD_ITS ---
Exam(s) XR CHEST 2V PA LATERAL EXAM: XR CHEST 2V PA LATERAL CLINICAL HISTORY: r/o CVA TECHNIQUE: 2D digital imaging was performed. Two views. COMPARISON: CR,XR XR PORTABLE CHEST AP from 07/27/2023 FINDINGS: HEART: Normal size. Aorta: Not dilated. PULMONARY VASCULATURE: Normal. MEDIASTINUM: Unremarkable. LUNGS: Clear. PLEURAL SPACE: No pleural effusion or pneumothorax. BONE:Unremarkable for age. SOFT TISSUES: Unremarkable. IMPRESSION: No acute abnormality. DATA REPOSITORY: RADIATION DOSE DELIVERED:
--- NOTE | 2024-05-01 12:15 | DI.CT_ITS ---
Exam(s) CT HEAD - STROKE PROTOCOL EXAM: CT HEAD - STROKE PROTOCOL CLINICAL HISTORY: L hand weakness, numbness to LUE. TECHNIQUE: Imaging Protocol: Axial computed tomography images with coronal and sagittal reformatted images were created and reviewed COMPARISON: CT CT BRAIN NECK CTA from 11/01/2021 FINDINGS: Ventricles and Extra axial spaces: Normal in size and morphology for the patient's age. Hemorrhage: None. Cerebral parenchyma: No evidence of acute infarct or mass. Midline shift: None. Brainstem/Cerebellum: Normal. Calvarium: Normal. Visualized Paranasal sinuses:Mild mucosal thickening. Mastoids: Clear. Soft Tissues: Unremarkable. ORBITS: Unremarkable. PITUITARY: Not enlarged. IMPRESSION: No acute intracranial process. RADIATION DOSE DELIVERED: Total DLP DATA REPOSITORY: All CT scans at this facility are submitted to the National Radiology Data Registry (NRDR) Dose Index Registry (DIR) with the [employer] (ACR). RADIATION OPTIMIZATION: All CT scans at this facility use at least one of these dose optimization te chniques: automated exposure control; mA and/or kV adjustment per patient size (includes targeted exa ms where dose is matched to clinical indication); or iterative reconstruction.
--- NOTE | 2024-05-01 12:24 | ED.GENADUL_ITS ---
Discharge Plan Discharge Details Chief Complaint: CVA/TIA Primary Care Provider: Dali Jefferson ED Provider: Becca Lopez Home Meds and New Rx's Prescriptions: No Action PreserVision AREDS 4,296 mcg-226 mg-90 mg capsule 1 cap PO BID carvedilol [Coreg] 12.5 mg tablet 12.5 mg PO BID Rx Instructions: must administer with a meal/food spironolactone 25 mg tablet 25 mg PO DAILY Xarelto 20 mg tablet 20 mg PO DAILY Rx Instructions: must administer with evening meal azelastine 137 mcg (0.1 %) aerosol,spray 1 spray intranasal BID Rx Instructions: administer into each nostril metoprolol succinate 50 mg tablet extended release 24 hr 50 mg PO DAILY furosemide 40 mg tablet See Rx Instructions .ROUTE .COMPLEX Qty: 90 3RF Dose Instruction: TAKE ONE TABLET BY MOUTH EVERY DAY Rx Instructions: TAKE ONE TABLET BY MOUTH EVERY DAY Eliquis 5 mg Tablet 5 mg PO BID Qty: 60 3RF Jardiance 10 mg Tablet 10 mg PO QAM Qty: 30 3RF atorvastatin 80 mg tablet 80 mg PO QHS Qty: 30 3RF HPI General Date/Time Provider Initiated Documentation: 05/01/24 11:50 . HPI Narrative: Kevin is a 78-year-old male with history of A-fib on anticoagulation with Eliquis (not currently taking), HFrEF, macular degeneration of the right eye, and CVA who presents to the emergency department today for evaluation of left hand weakness and numbness below the left elbow. He reports that he woke up this morning and was unable to hold his coffee cup, dropped out of his hand without him even realizing it. He has no sensation from his elbow down to his fingertips. He says he felt normal yesterday, had a mild right-sided headache extending down to her shoulder that resolved after taking Tylenol. Says this is similar to headaches he has had in the past. Denies associated dizziness, vision change, chest pain, shortness of breath, other extremity weakness, nausea/vomiting, abdominal pain, change in bowel or bladder function, gait change. Due to depression after the of his , he has not taken his medications in 5 weeks. Daughters are at bedside. Physical exam reassuring. Patient is alert and oriented, easily conversational. Slightly decreased hand grasp to the left hand, no sensation from elbow to fingertips. Distal pulses intact, brisk cap refill, no coolness/pallor. No pronation, nystagmus, weakness to lower extremities or right upper extremity. Easy work of breathing, lungs lungs clear bilaterally. Normal heart sounds, irregularly irregular. 5/5 muscle strength upper and lower extremities. Normal gait, finger to finger, finger nose, Romberg. DDx includes but is not limited to: Stroke/TIA, nerve palsy, cervical radiculopathy I independently interpreted the following tests: EKG remarkable for A-fib, rate 85, no changes consistent with acute ischemia. CBC, CMP, troponin reassuring. No intracranial hemorrhage noted on CT. This was confirmed by radiologist. MRI obtained, significant for small area of cortical infarction in the posterior right frontal lobe. [place] [facility]. Discussed case with Dr. Campos, hospitalist. Patient to be admitted for management of stroke, likely of embolic etiology due to un-anticoagulated A-fib, though thrombus also possible. ASA 324 given, as well as prescribed statin. Patient verbalizes agreement with plan of care. Related Data Home Medications ?Medication ?Instructions ?Recorded ?Confirmed apixaban 5 mg tablet (Eliquis) 5 mg PO BID #60 tabs 11/04/21 05/01/24 atorvastatin 80 mg tablet 80 mg PO QHS #30 tabs 11/04/21 05/01/24 empagliflozin 10 mg tablet 10 mg PO QAM #30 tabs 11/04/21 05/01/24 (Jardiance) carvedilol 12.5 mg tablet (Coreg) 12.5 mg PO BID 03/19/22 05/01/24 spironolactone 25 mg tablet 25 mg PO DAILY 03/19/22 05/01/24 vitamins A,C,H-mqyw-amkgpp 4,296 1 cap PO BID 03/24/23 05/01/24 mcg-226 mg-90 mg capsule (PreserVision AREDS) azelastine 137 mcg (0.1 %) nasal 1 spray intranasal BID 11/18/23 05/01/24 spray metoprolol succinate 50 mg 50 mg PO DAILY 11/18/23 05/01/24 tablet,extended release 24 hr rivaroxaban 20 mg tablet (Xarelto) 20 mg PO DAILY 11/18/23 05/01/24 furosemide 40 mg tablet See Rx Instructions .Route 02/21/24 05/01/24 .COMPLEX #90 tabs Previous Rx's ?Medication ?Instructions ?Recorded apixaban 5 mg tablet (Eliquis) 5 mg PO BID #60 tabs 11/04/21 atorvastatin 80 mg tablet 80 mg PO QHS #30 tabs 11/04/21 empagliflozin 10 mg tablet 10 mg PO QAM #30 tabs 11/04/21 (Jardiance) furosemide 40 mg tablet See Rx Instructions .Route 02/21/24 .COMPLEX #90 tabs Allergies Allergy/AdvReac Type Severity Reaction Status Date / Time shellfish derived Allergy Severe GI upset, Verified 05/01/24 11:57 nasal congestion General Stated Complaint: CVA/TIA ANGELO: 3 Review of Systems Narrative: see HPI Exam Const General: cooperative, healthy appearing, comfortable, no acute distress, well developed and well groomed Nutritional Appearance: average body habitus Orientation: alert and oriented x3 Eyes EOM: No nystagmus Resp Effort & Inspection: normal respiratory effort and able to speak in complete sentences Auscultation: clear to auscultation bilaterally Cardio Rate: regular rate Rhythm: abnormal rhythm irregularly irregular Pulses: radial pulses present Neuro General: gait normal, tone normal, moves all extremities, no meningeal signs, no focal motor deficits, CN's II-XI intact bilaterally and other (Dec sensation to left forearm, able to perceive temp but no pressure) Cranial Nerves: no nystagmus Cognition: normal cognition Speech: speech normal Gait: normal gait Motor: muscle tone normal throughout, strength 5/5 throughout and other (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) Coordination: [id number] test normal, Romberg test normal, Does not sway with eyes open and rapid alternating movement UE normal Extrem General: normal to inspection, full ROM and capillary refill normal Course Vital Signs Vital signs: Vital Signs Temperature 36.9 C 05/01/24 11:53 Pulse 91 H 05/01/24 11:53 Respiratory Rate 16 05/01/24 11:53 Blood Pressure 124/74 05/01/24 11:53 Pulse Oximetry 98 05/01/24 11:53 Temperature 36.9 C 05/01/24 11:53 Temperature Source Oral 05/01/24 11:53 Pulse 91 H 05/01/24 11:53 Respiratory Rate 16 05/01/24 12:02 Respiratory Effort Normal, Non-Labored 05/01/24 12:02 Respiratory Depth Normal 05/01/24 12:02 Respiratory Pattern Normal 05/01/24 12:02 Blood Pressure 124/74 05/01/24 11:53 Blood Pressure Position Sitting 05/01/24 11:53 Pulse Oximetry 98 05/01/24 11:53 Oxygen Delivery Method Room Air 05/01/24 11:53 Oxygen Flow Rate 0 05/01/24 11:53 Medical Decision Making Imaging Data Radiologic Study: Radiologist's impression: Exam(s) CT HEAD - STROKE PROTOCOL EXAM: CT HEAD - STROKE PROTOCOL CLINICAL HISTORY: L hand weakness, numbness to LUE. TECHNIQUE: Imaging Protocol: Axial computed tomography images with coronal and sagittal reformatted images were created and reviewed COMPARISON: CT CT BRAIN NECK CTA from 11/01/2021 FINDINGS: Ventricles and Extra axial spaces: Normal in size and morphology for the patient's age. Hemorrhage: None. Cerebral parenchyma: No evidence of acute infarct or mass. Midline shift: None. Brainstem/Cerebellum: Normal. Calvarium: Normal. Visualized Paranasal sinuses:Mild mucosal thickening. Mastoids: Clear. Soft Tissues: Unremarkable. ORBITS: Unremarkable. PITUITARY: Not enlarged. IMPRESSION: No acute intracranial process. 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 Social History Smoking/Tobacco Use Status: Unknown Smoking risk assessment performed?: Yes Alcohol Intake: current Alcohol Intake frequency: a few times a week Alcohol type: beer Drug use: Never Substance use type: does not use Details: quit smoking 40 yrs ago Household members: spouse Housing: house current occupation: Retired-[employer] What is your relationship status?: Panel score (0-1 are the most socially isolated patients): 1 Do you feel safe at home: Yes Do you feel safe in your relationship?: Yes
[2024-05-01 12:36] LABS: Abs Immature Grans 0.02 10^3/uL (0.0-0.06); Absolute Basophil Count 0.04 10^3/uL (0.0-0.2); Absolute Eosinophil Count 0.06 10^3/uL (0.0-0.7); Absolute Lymphocyte Count 1.41 10^3/uL (1.2-3.4); Absolute Monocyte Count 0.47 10^3/uL (0.1-0.8); Absolute Neutrophil Count 5.13 10^3/uL (1.2-6.7); Basophils % 0.6 %; Eosinophils % 0.8 %; HGB 16.2 g/dL (13.5-17.5); Immature Grans % 0.3 %; Lymphocytes % 19.8 %; MCH 31.5 pg (27.0-33.0); MCHC 33.8 % (32.0-36.0); MCV 93 fL (80-95); MPV 9.1 fL (8.0-11.0); Monocytes % 6.6 %; Neutrophils % 71.9 %; Platelet Count 271 10^3/uL (130-400); RBC 5.15 10^6/uL (4.36-5.78); RDW 12.9 % (11.8-14.1); RDW-SD 44.7 fL; WBC 7.13 10^3/uL (4.4-10.8)
[2024-05-01 12:59] LABS: ALT 35 U/L (16-63); AST 19 U/L (15-37); Albumin 3.7 g/dL (3.4-5.0); Alkaline Phosphatase 69 U/L (46-116); Anion Gap 9.3 mmol/L (3-11); BUN 12 mg/dL (7-18); Bilirubin, Total 1.17 mg/dL (0.2-1.0); CO2 24.7 mmol/L (21.0-32.0); Calcium 9.3 mg/dL (8.5-10.1); Chloride 102 mmol/L (98-107); Estimated GFR 77.52 (mL/min/1.73m2); Glucose 108 mg/dL (74-106); Magnesium 1.9 mg/dL (1.8-2.4); Sodium 136 mmol/L (136-145); Total Protein 7.1 g/dL (6.4-8.2); Troponin I < 50 ng/L (< or =60)
--- NOTE | 2024-05-01 14:23 | DI.MRI_ITS ---
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 COMPARISON: MR MR BRAIN WO CONTRAST from 11/17/[address] HEAD - STROKE PROTOCOL from 05/01/2024 FINDINGS: VENTRICLES AND EXTRA AXIAL SPACES: Normal in size and morphology for the patient's age. MIDLINE SHIFT: None. CEREBRAL PARENCHYMA:Area of restricted diffusion seen in the cortex of the posterior right frontal lo be adjacent to the the right sylvian fissure. Corresponding high signal seen on T2 in 4 FLAIR weight ed images. No space-occupying lesion identified. Mild atrophy consistent with the patient's age. Mi ld scattered foci of high signal in the white matter consistent with sequela of chronic microvascular disease. HEMORRHAGE: None. BRAINSTEM/CEREBELLUM: Normal. VISUALIZED PARANASAL SINUSES/MASTOIDS:Clear. Vasculature: Normal flow void. PITUITARY GLAND: Unremarkable. ORBITS: Unremarkable. IMPRESSION: Small area of acute cortical infarction in the posterior right frontal lobe. Findings called to ER provider. DATA REPOSITORY:
[2024-05-01] MEDS: Atorvastatin 40 MG TAB 80 MG PO ×2 (15:01→19:57)
[2024-05-01 16:53] LABS: Troponin I < 50 ng/L (< or =60)
--- NOTE | 2024-05-01 17:25 | W.PM.HP.N ---
Date of service: 05/01/24 Time of Service: 17:25 Assessment and Plan Assessment and plan (1) Acute CVA (cerebrovascular accident): Status: Acute Assessment and plan: Acute stroke seen on MRI. In the setting of atrial fibrillation off anticoagulation, but also a history of ischemic stroke. Presented out of time range for thrombolysis. -Per radiology Dr. Werner, single are of infarct more c/w intracranial thrombosis than embolic. 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 -awaiting formal note from teleneurology -He stopped meds when is was dying. He is still sad, but is ready to resume medical care. (2) Paroxysmal atrial fibrillation: Status: Acute Assessment and plan: In atrial fibrillation now, but rate controlled without beta serjio at this point. (3) Cardiomyopathy: Status: Acute Assessment and plan: No overt heart failure on exam or chest x-ray. Can resume SGLT2i but holding other meds that may lower blood pressure given acute stroke, BP is now normal. 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 He intially reported he noted this morning after getting up at 7:30 and pouring a cup of coffee that he dropped the coffee cup after a few seconds. He then remembered last night when he went to play cribbage with friends he dropped a bag of chips four times with his left hand. He doesn't remember exactly when the weakness started but was normal before yesterday evening. He was forgetting more things this morning like where his car keys were, but no overt confusion, other focal weakness, voice changes, or difficulty swallowing. No headaches or nausea. No chest pain or palpitaitons. Review of Systems All systems reviewed & are unremarkable except as noted in HPI and below Constitutional Constitutional: Denies headache(s) Eyes Eyes: Denies change in vision, Denies diplopia and Reports loss of vision (right central vision, chronic) ENT Ears, Nose, Mouth, and Throat: Reports abnormal hearing (chronic, no change), Denies change in voice, Denies dysphagia, Denies vertigo, Denies headache(s) and Denies sore throat Comments: worked up for dysphagia/aspiration in 2022, was benign. Gastrointestinal Gastrointestinal: Denies dysphagia Neurologic Neurologic: Reports abnormal hearing (chronic, no change), Denies abnormal movements, Denies abnormal speech, Denies vertigo, Denies headache(s), Reports loss of vision (right central vision, chronic) and Denies seizure-like activity Hematologic/Lymphatic Hematologic/Lymphatic: Denies easy bleeding and Denies easy bruising PFSH All Active Problems DVT prophylaxis (Acute) Acute CVA (cerebrovascular accident) (Acute) Ischemic cerebrovascular accident (CVA) (Acute) Dysphagia (Acute) Brief loss of consciousness (Acute) Excessive cerumen in both ear canals (Acute) Pharyngoesophageal dysphagia (Acute) GERD (gastroesophageal reflux disease) (Chronic) Mitral regurgitation (Chronic) Systolic heart failure (Acute) Sensorineural hearing loss (SNHL) of both ears (Acute) Memory loss (Acute) Cellulitis of arm, right (Acute) Cardiomyopathy (Acute) Ataxia (Acute) Stroke (Acute) 2021 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 (Acute) Aspiration into airway (Acute) Emphysema lung (Acute) Pulmonary nodule (Acute) Dyspnea on exertion (Acute) Hyperlipidemia (Acute) Paroxysmal atrial fibrillation (Acute) Screening for colorectal cancer (Acute) Medical History Basal cell carcinoma, face Heart failure, left, with LVEF 31-40% Impacted cerumen, right ear Decreased hearing Lumbar disc herniation Macular degeneration of right eye Alcohol use Family History Mother , age 53 Leukemia Father Alcohol use disorder alcohol related complications Brother Cancer lung cancer related to occupational exposure. 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 Lost to cancer 03/2024 Meds Allergies and Home Medications Allergies Allergy/AdvReac Type Severity Reaction Status Date / Time shellfish derived Allergy Severe GI upset, Verified 05/01/24 11:57 nasal congestion Home Medications ?Medication ?Instructions ?Recorded ?Confirmed ?Type apixaban 5 mg tablet (Eliquis) 5 mg PO BID #60 tabs 11/04/21 05/01/24 Rx atorvastatin 80 mg tablet 80 mg PO QHS #30 tabs 11/04/21 05/01/24 Rx empagliflozin 10 mg tablet 10 mg PO QAM #30 tabs 11/04/21 05/01/24 Rx (Jardiance) carvedilol 12.5 mg tablet (Coreg) 12.5 mg PO BID 03/19/22 05/01/24 History spironolactone 25 mg tablet 25 mg PO DAILY 03/19/22 05/01/24 History vitamins A,C,T-vuco-xzkxka 4,296 1 cap PO BID 03/24/23 05/01/24 History mcg-226 mg-90 mg capsule (PreserVision AREDS) azelastine 137 mcg (0.1 %) nasal 1 spray intranasal BID 11/18/23 05/01/24 History spray metoprolol succinate 50 mg 50 mg PO DAILY 11/18/23 05/01/24 History tablet,extended release 24 hr rivaroxaban 20 mg tablet (Xarelto) 20 mg PO DAILY 11/18/23 05/01/24 History furosemide 40 mg tablet See Rx Instructions .Route 02/21/24 05/01/24 Rx .COMPLEX #90 tabs Exam Narrative Exam Narrative: GEN: Alert and oriented x 4, pleasant and cooperative, gives linear history. No acute distress at rest. HEENT: Head atraumatic. Conjunctiva clear, no icterus. PEERL, EOMI. no rhinorrhea. MMM, OP benign. Neck is supple with no masses or lymphadenopathy, trachea midline LUNGS: CTAB with normal effort CV: RRR with no murmurs, gallops, or rubs. ABD: active bowel sounds, soft, nontender and nondistended. No masses. EXT: no cyanosis, clubbing, or edema MSK: No joint redness or swelling NEURO: CN 2-12 intact, including visual baires to confrontation. No pronator drift. Nl FNF/HTS laura. Normal movement of 4 extremities, but 4/5 strength in left hand grasp. Decreased sensation to light touch left hand/forearm. Normal speech. Normal gait. No tremor SKIN: No rashes or open wounds. PSYCH: normal mood and affect Results Imaging Chest x-ray: report reviewed (No acute abnormality. ) and image reviewed EKG: report reviewed and image reviewed (Atrial fib 85, LAD, no ischemic changes) Imaging Studies: MRI head w/o: Small area of acute cortical infarction in the posterior right frontal lobe. CT Head w/o: No acute intracranial process. Labs 05/01/24 12:15 05/01/24 12:15 Labs: Laboratory Results - last 24 hr 05/01/24 05/01/24 12:15 16:30 WBC 7.13 RBC 5.15 Hgb 16.2 Hct 48.0 MCV 93 MCH 31.5 MCHC 33.8 RDW 12.9 Plt Count 271 MPV 9.1 Immature Gran % 0.3 Neutrophils % 71.9 Lymphocytes % 19.8 Monocytes % 6.6 Eosinophils % 0.8 Basophils % 0.6 Nucleated RBC % 0.0 Absolute Neutrophils 5.13 Absolute Lymphocytes 1.41 Absolute Monocytes 0.47 Absolute Eosinophils 0.06 Absolute Basophils 0.04 Sodium 136 Potassium 4.0 Chloride 102 Carbon Dioxide 24.7 Anion Gap 9.3 BUN 12 Creatinine 1.0 Est GFR (CKD-EPI 2020) 77.52 Glucose 108 H Calcium 9.3 Magnesium 1.9 Total Bilirubin 1.17 H AST 19 ALT 35 Alkaline Phosphatase 69 Troponin I < 50 < 50 Total Protein 7.1 Albumin 3.7 Last Vital Signs Temp 36.9 C 05/01/24 11:53 Pulse 91 H 05/01/24 11:53 Resp 17 05/01/24 16:59 BP 124/74 05/01/24 11:53 Pulse Ox 85 L 05/01/24 16:29 Time Spent Time spent with Patient: 55-74 minutes Time was spent: preparing to see the patient(eg.review tests), obtaining and/or reviewing separately otained hiistory, ordering medications,tests, procedures, referring, communicating with other health care advocate, indepentently interpreting results and counseling the patient
[2024-05-01] MEDS: Aspirin 81 MG CHEW 324 MG CH (18:02)
--- NOTE | 2024-05-01 19:31 | W.PC.ACHO ---
Registration Status: Primary Language: Preferred Language: ED Information & Data Chief Complaint CVA/TIA 05/01/24 12:30 Triage Note Pt's daughters brought Pt 05/01/24 11:53 here with a concern hes had a stroke. Pt awoke this morning and usually has coffee, Pt was unable to hold coffee cup in left hand due to not feeling it. Pt was able to hold his cup in his right hand. Pt states he has had a STEVENS as well starting last night. Pt took APAP at 0100 and the STEVENS has since gone away. Medical / Surgical History Basal cell carcinoma, face Heart failure, left, with LVEF 31-40% Impacted cerumen, right ear Decreased hearing Lumbar disc herniation Macular degeneration of right eye Alcohol use Most Recent Vital Signs Temperature 36.9 C 05/01/24 19:21 Temperature Source Temporal Artery Scan 05/01/24 18:40 Pulse 80 05/01/24 19:21 Respiratory Rate 20 05/01/24 19:21 Respiratory Effort Normal, Non-Labored 05/01/24 12:02 Respiratory Depth Normal 05/01/24 12:02 Respiratory Pattern Normal 05/01/24 12:02 Blood Pressure 106/64 05/01/24 19:21 Blood Pressure Position Sitting 05/01/24 11:53 Pulse Oximetry 96 05/01/24 19:21 Oxygen Delivery Method Room Air 05/01/24 18:40 Oxygen Flow Rate 0 05/01/24 18:40 Pain Level 0 05/01/24 19:21 Allergies shellfish derived Allergy (Severe, Verified 05/01/24 11:57) GI upset, nasal congestion Precautions Isolation Standard precaution 05/01/24 12:01 IV IV Catheter Type [Antecubital] Peripheral IV IV Catheter Gauge [Antecubital 18 ] Diet Orders Category Date Time Status Heart Healthy Eating [DIET] Nutrition 05/01/24 Dinner Active Diagnostics 05/01/24 05/01/24 Range/Units 16:30 12:15 WBC 7.13 (4.4-10.8) 10^3/uL RBC 5.15 (4.36-5.78) 10^6/uL Hgb 16.2 (13.5-17.5) g/dL Hct 48.0 (40.0-50.0) % MCV 93 (80-95) fL MCH 31.5 (27.0-33.0) pg MCHC 33.8 (32.0-36.0) % RDW 12.9 (11.8-14.1) % Plt Count 271 (130-400) 10^3/uL MPV 9.1 (8.0-11.0) fL Immature Gran % 0.3 % Neutrophils % 71.9 % Lymphocytes % 19.8 % Monocytes % 6.6 % Eosinophils % 0.8 % Basophils % 0.6 % Nucleated RBC % 0.0 (0.0-0.3) % Absolute Neutrophils 5.13 (1.2-6.7) 10^3/uL Absolute Lymphocytes 1.41 (1.2-3.4) 10^3/uL Absolute Monocytes 0.47 (0.1-0.8) 10^3/uL Absolute Eosinophils 0.06 (0.0-0.7) 10^3/uL Absolute Basophils 0.04 (0.0-0.2) 10^3/uL Sodium 136 (136-145) mmol/L Potassium 4.0 (3.5-5.1) mmol/L Chloride 102 (98-107) mmol/L Carbon Dioxide 24.7 (21.0-32.0) mmol/L Anion Gap 9.3 (3-11) mmol/L BUN 12 (7-18) mg/dL Creatinine 1.0 (0.70-1.30) mg/dL Est GFR (CKD-EPI 2020) 77.52 (mL/min/1.73m2) Glucose 108 H (74-106) mg/dL Calcium 9.3 (8.5-10.1) mg/dL Magnesium 1.9 (1.8-2.4) mg/dL Total Bilirubin 1.17 H (0.2-1.0) mg/dL AST 19 (15-37) U/L ALT 35 (16-63) U/L Alkaline Phosphatase 69 (46-116) U/L Troponin I < 50 < 50 (< or =60) ng/L Total Protein 7.1 (6.4-8.2) g/dL Albumin 3.7 (3.4-5.0) g/dL Intake and Output - 24 Hour Total 05/01/24 11:48 thru 05/01/24 11:53 Weight 84.368 kg Falls Risk Assessment History of Falls No History 05/01/24 12:01 Fall Total Score 0 05/01/24 12:01 Level of Risk Standard/Low Risk 05/01/24 12:01 Problems (Last Reviewed 05/01/24 @ 18:57 by Donta Campos) DVT prophylaxis (Acute) Acute CVA (cerebrovascular accident) (Acute) Ischemic cerebrovascular accident (CVA) (Acute) Cardiomyopathy (Acute) Paroxysmal atrial fibrillation (Acute) v v v v v v v v v Sending and/or Receiving Nurses: Please use comment section below to note any information pertinent to the patient hand-off not included above. Information / Comments: A/O x4, denies pain, numbness in left hand, and left ear, CT and CXR (-), MRI shows small infarct, makes needs known, VS WNL Report received from: LILIBETH Jacob
[2024-05-01] MEDS: Clopidogrel 300 MG TAB PO (19:56)
[2024-05-01] MEDS: Normal Saline Flush 10 ML SYR IVP (19:57)
[2024-05-01] MEDS: Enoxaparin 40 MG/0.4 ML SYR SC (20:33)
[2024-05-02 03:26] VITALS: BP 90/65; PULSE 78; RESP 18; TEMP 36.5; O2SAT 94
[2024-05-02 03:40] VITALS: BP 100/76
--- NOTE | 2024-05-02 06:00 | DI.US_ITS ---
Exam(s) US CAROTID EXAM: US CAROTID CLINICAL HISTORY: CVA. TECHNIQUE: Ultrasound carotids performed using grayscale, color-flow, and spectral Doppler imaging. COMPARISON: No exams were available for comparison FINDINGS: RIGHT CAROTID ARTERY: Plaque: Focus of calcified plaque at the common carotid bulb. Velocity elevation: None. LEFT CAROTID ARTERY: Plaque: Few small foci of calcific plaque are noted at the left common carotid bulb and proximal inte rnal carotid artery. Velocity elevation: None. VERTEBRAL ARTERIES: Antegrade flow. Measurements: R Bulb: 52.3cm/s PS / 17.5cm/s ED R CCA: 68.5cm/s PS / 25.3cm/s ED R ECA: 86cm/s PS / 14.7cm/s ED R ICA Prox: 48cm/s PS / 21cm/s ED R ICA Mid: 63.4cm/s PS / 36.5cm/s ED R ICA Distal: 62.8cm/s PS /30cm/s ED R Vert: 27.6cm/s PS / 10cm/s ED R SVR: 0.9 R DVR: 1.4 L Bulb: 38.8cm/s PS / 8.4cm/s ED L CCA: 58.1cm/s PS / 23.2cm/s ED L ECA: 51.4cm/s PS / 12.1cm/s ED L ICA Prox: 55.7cm/s PS / 28.7cm/s ED L ICA Mid: 53.1cm/s PS / 19.1cm/s ED L ICA Distal: 55.3cm/s PS / 25.9cm/s ED L Vert: 27cm/s PS / 12cm/s ED L SVR: 1 L DVR: 1.2 IMPRESSION: No evidence for hemodynamically significant carotid stenosis. Small foci of calcific plaque at the c ommon carotid bulbs. Criteria for Carotid Stenosis: Normal: ICA PSV <125 cm/s no plaque or intimal thickening is visible. <50% stenosis: ICA PSV <125 cm/s and plaque or intimal thickening is visible. 50-69% stenosis: ICA PSV is 125-250 cm/s and plaque is visible. >70% stenosis to near occlusion: ICA PSV >250 cm/s with visible plaque and luminal narrowing. DATA REPOSITORY:
[2024-05-02 08:04] VITALS: BP 111/71; PULSE 83; RESP 18; TEMP 36.9; O2SAT 96
[2024-05-02] MEDS: Aspirin 81 MG CHEW PO (08:16)
[2024-05-02] MEDS: Clopidogrel 75 MG TAB PO (08:16)
[2024-05-02] MEDS: Empaglifozin 10 MG TAB PO (08:16)
[2024-05-02] MEDS: Normal Saline Flush 10 ML SYR IVP ×2 (08:17→20:34)
--- NOTE | 2024-05-02 11:25 | PDOC.CMIN ---
Date of service: 05/02/24 Time of Service: 11:25 Care Management Initial Assmt Initial Assessment Reason for Hospitalization: CVA Functional Status/Living Situation Patient Presentation: Lost his last month to Cancer. 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) Activities/Hobbies/SocialSupport: Social, enjoys playing cribbage Medications Medication Management: No Issues/Barriers identified Advance Directives Advance Directives: Do you have an Advance Directive: N 01/13/22 12:41 AD On File at [facility]: N 01/13/22 12:41 Date Asked 05/01/24 05/01/24 13:17 AD Date Reviewed COLST On File at [facility] COLST Date Scanned Code Status Resuscitation Status Full Code Insurance Coverage/Financial Issues Insurance: Pure life renal Care Team Visit Care Team Role Provider Type Dali Jefferson MD Primary Care Provider [facility] STAFF PHYSICIAN Julia Nielson Other Providers REG OCCUPATIONAL THERAPIST Becca Rapp Emergency Provider NURSE PRACTITIONER Donta Campos Admit Provider [facility] STAFF PHYSICIAN Attending Provider Discharge Potential Discharge Needs: Consult (Tele Neuro: [facility] [place], PT/OT/ST), Imaging/labs (ECHO, Carotid US ), PT Evaluation and PCP F/U Appt Anticipated Barriers to Discharge: None Identified Patient/Family Education Needs: Review discharge instructions, discuss Ask Me Three Transportation: Private vehicle Plan: Kevin continues work-up, CM following. [facility] All Active Problems DVT prophylaxis (Acute) Acute CVA (cerebrovascular accident) (Acute) Ischemic cerebrovascular accident (CVA) (Acute) Dysphagia (Acute) Brief loss of consciousness (Acute) Excessive cerumen in both ear canals (Acute) Pharyngoesophageal dysphagia (Acute) GERD (gastroesophageal reflux disease) (Chronic) Mitral regurgitation (Chronic) Systolic heart failure (Acute) Sensorineural hearing loss (SNHL) of both ears (Acute) Memory loss (Acute) Cellulitis of arm, right (Acute) Cardiomyopathy (Acute) 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 Lost to cancer 03/2024 SDOH(Care Management) Screening Will the Patient Participate in the Screening?: Yes Do you worry about having a steady place to live?: no In the past 12 months, have you had to go without electric, gas, oil or water in your home?: no Have you or anyone in your house had to go without enough food to eat?: no Has lack of transportation kept you from medical appointments or from doing things needed for daily living?: no Has anyone in your support network made you feel unsafe for any reason?: no Social Determinants of Health Comments(SDOH Details): Complex grief; passed 03/2024 cancer. Health Related Social Needs Health related social needs: problem related to primary support group(Z63.9) (Complex grief; passed 03/2024 cancer. )
--- NOTE | 2024-05-02 13:17 | OTIE_ITS ---
Occupational Therapy Notes Inpatient Occupational Therapy Evaluation Date: 05/02/24 Referring Doctor: Dr. Campos OT Orders: Urgent Precautions: Fall, standard, full PATIENT PROFILE/ADMITTING DIAGNOSIS: Pt is a 78 year old male who presented to the ED with signs and symptoms of decreased (L) UE use, fatigue and decreased functional activity tolerance. He was admitted to [facility] for assessment of an acute CVA. Past Medical History: All Active Problems DVT prophylaxis (Acute) Acute CVA (cerebrovascular accident) (Acute) Ischemic cerebrovascular accident (CVA) (Acute) Dysphagia (Acute) Brief loss of consciousness (Acute) Excessive cerumen in both ear canals (Acute) Pharyngoesophageal dysphagia (Acute) GERD (gastroesophageal reflux disease) (Chronic) Mitral regurgitation (Chronic) Systolic heart failure (Acute) Sensorineural hearing loss (SNHL) of both ears (Acute) Memory loss (Acute) Cellulitis of arm, right (Acute) Cardiomyopathy (Acute) Ataxia (Acute) Stroke (Acute) 2022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 (Acute) Aspiration into airway (Acute) Emphysema lung (Acute) Pulmonary nodule (Acute) Dyspnea on exertion (Acute) Hyperlipidemia (Acute) Paroxysmal atrial fibrillation (Acute) Screening for colorectal cancer (Acute) Medical History Basal cell carcinoma, face Heart failure, left, with LVEF 31-40% Impacted cerumen, right ear Decreased hearing Lumbar disc herniation Macular degeneration of right eye Alcohol use Social History/Home Situation: Pt lives in a private home and is currently grieving the loss of his post 1 month. 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 He notes that he is (I) at baseline. He has a hx of stroke on the (R) side. He does have a slight cognitive issue at times remembering directions but is able to manage this (I). Good social support and ability to communicate his needs. He mentions someone living in his basement and he is not able to get her out of his home. He states that he is needing to contact a lambskin trimmer for (A) because they live in his home, run up his bills and refuse to leave, Equipment owned/DME: None SUBJECTIVE: Pt was sitting in bed when OT arrived. He is agreeable to OT consult and receptive to consult. OBJECTIVE: General Observation: Pleasant, IV in (R) UE, (R) hand dominant Mental Status: A&Ox4 Pain: no c/o pain ROM: RUE AROM WFL L UE AROM WFL STRENGTH: RUE 5/5 throughout LUE 4-/5 throughout FUNCTIONAL MOBILITY/ADLS BATHING NT today with OT has AROM WFL to perform (I) without restrictions. DRESSING Dressing UE (I) don and doffing shirt Dressing LE (I) don and doffing (B) socks he is out of breathe post performance but notes that this has been his baseline, GROOMING Seated (I) TOILETING On toilet (I) EATING Seated (I) BALANCE: Static sitting Normal Dynamic Sitting Normal INFORMED CONSENT/EDUCATION: Pt instructed in purpose of OT Consult and plan of care. ASSESSMENT: Patient is a 78-year-old male referred to occupational therapy services with diagnosis of acute CVA. Patient presents with clinical signs and symptoms consistent with dx. OT performed consult today with pt who was (I) with his ADL routines with no adaptive equipment needed. He does have a lsight strength deficit but OT was able to educate and train him in UE strengthening w hih he can perform (I) at this time. Patient is assessed as a Low [id number] complexity based on the following: History: see above Examination: see functional limitations as noted above Presentation: evolving Decision Making: low complexity GOALS N/A Seen for OT consult only. PLAN OF CARE/TREATMENT PLAN: Discharged from skilled OT services. DISCHARGE RECOMMENDATIONS Home when medically cleared per MD. TREATMENT TIME/MINUTES/CODES 25 minutes, [id number] [facility] [place], [place]
[2024-05-02 15:15] VITALS: BP 116/81; PULSE 95; RESP 18; TEMP 36.9; O2SAT 93
--- NOTE | 2024-05-02 16:11 | IN_ITS ---
PT Notes Visit Reasons: Cerebrovascular accident Inpatient Physical Therapy Evaluation Date: 05/02/24 Referring Doctor: Dr. Arroyo PT Orders: PT CONSULT: fall safety assessment Precautions: standard Patient Profile/Admitting Diagnosis: Pt is a 78 year old male who presented to the ED with signs and symptoms of decreased (L) UE use, fatigue and decreased functional activity tolerance. He was admitted to [facility] for assessment of an acute CVA. Past Medical History: All Active Problems DVT prophylaxis (Acute) Acute CVA (cerebrovascular accident) (Acute) Ischemic cerebrovascular accident (CVA) (Acute) Dysphagia (Acute) Brief loss of consciousness (Acute) Excessive cerumen in both ear canals (Acute) Pharyngoesophageal dysphagia (Acute) GERD (gastroesophageal reflux disease) (Chronic) Mitral regurgitation (Chronic) Systolic heart failure (Acute) Sensorineural hearing loss (SNHL) of both ears (Acute) Memory loss (Acute) Cellulitis of arm, right (Acute) Cardiomyopathy (Acute) Ataxia (Acute) Stroke (Acute) 2022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 (Acute) Aspiration into airway (Acute) Emphysema lung (Acute) Pulmonary nodule (Acute) Dyspnea on exertion (Acute) Hyperlipidemia (Acute) Paroxysmal atrial fibrillation (Acute) Screening for colorectal cancer (Acute) Medical History Basal cell carcinoma, face Heart failure, left, with LVEF 31-40% Impacted cerumen, right ear Decreased hearing Lumbar disc herniation Macular degeneration of right eye Alcohol use Social History/Home Situation: Resides in a private home. Continues to work in the [employer] business. Lives alone following the recent of his . Denies mobility issues at baseline. Equipment Owned/DME: none Subjective: Kevin states that he is feeling fine. States that his biggest problem was that he couldn't feel his left hand, which has now resolved. He states that he's ready to go home and has jobs lined up for tomorrow. Objective: General Observation: Resting in bed. IV in RUE. Mental Status: A&Ox3. Pleasant and cooperative. Impulsive throughout treatment, but responds well to cues. Pain: denies ROM: Right Upper Extremity: WFL Left Upper Extremity: WFL Right Lower Extremity: WFL Left Lower Extremity: WFL Strength: Right Upper Extremity: Shoulder flexion 5/5. Biceps 5/5. Triceps 5/5. 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 Left Upper Extremity: Shoulder flexion 4+/5. Biceps 4/5. Triceps 4-/5. Wrist extension 5/5. [employer] Sales Counter Manager diminished by 25% vs right side. Right Lower Extremity: Hip flexion 5/5. Quads 5/5. Ankle DF 5/5. Left Lower Extremity: Hip flexion 4/5. Quads 4/5. Ankle DF 4+/5. Bed Mobility/Transfers: supine-sit: independent sit-stand: independent stand-sit: independent Gait: Ambulates 200' with supervision only. No ataxia noted. No losses of balance. Balance: Static Sitting: normal Dynamic Sitting: Normal Static Standing: normal Dynamic Standing: good [place]: able to maintain x 10 seconds, with minor increase in sway Special Tests: Mobility Limitations Standardized Measure [facility] AM-PAC 6 clicks Basic Mobility Inpatient Short Form: Raw Score: 24 CMS Score: 0% impairment Informed Consent/Education: Patient instructed in purpose of PT consult and plan of care. Assessment: Patient is a 78 year old male referred to physical therapy services for safety consultation in acute care setting. Patient presents with baseline level mobility, with minor deficits and left UE and LE strength. He has been working on an independent exercise program as prescribed by OT, which he's been encouraged to continue. He does not require PT intervention in acute care setting and is appropriate for discharge home once medically stable. He currently demonstrates the following impairment level findings: 1. decreased LUE strength 2. decreased LLE strength Impairments are contributing to the following functional limitations: At baseline Patient is assessed as Low [id number] complexity based on the following: History: as above Examination: no functional limitations Presentation: stable Decision Making: low Plan of Care/Treatment Plan: No further PT required in acute care setting. DISCHARGE RECOMMENDATIONS: Home with no services TREATMENT CODE/TIME: [id number] ([id number]) Delores Hyman, PT, DPT [facility]
--- NOTE | 2024-05-02 16:12 | W.PM.PROGNOT ---
Date of Service Date of service: 05/02/24 Time of Service: 16:12 Assessment and Plan Assessment and plan (1) Acute CVA (cerebrovascular accident): Status: Acute Assessment and plan: continue DAPT for next week then return to apixaban, will discuss further w/ teleneurology tomorrow, continue atorvastatin (2) Paroxysmal atrial fibrillation: Status: Acute Assessment and plan: In atrial fibrillation now, but rate controlled without beta serjio at this point. may need to resume his carvedilol at later point for his cardiomyopathy and his afib (3) Cardiomyopathy: Status: Acute Assessment and plan: No overt heart failure on exam or chest x-ray. Can resume SGLT2i but holding other meds that may lower blood pressure given acute stroke, BP is now normal. (4) DVT prophylaxis: Status: Acute Assessment and plan: LMWH Subjective Subjective Interval history since last seen: Kevin says that he is markedly improved. He is sitting up in bed eating dinner and talking w/ his family. He still has some residual weakness in his left hand and left lower leg/foot. No speech or visual deficits and no swallowing difficultites. Patient has hx of afib and had been on anticoagulants in the past (either apixaban or Xarelto) however he stopped all of his meds about 4 to 5 weeks ago while grieving over loss of his . He says that he felt no different off his meds and did not think he needed them. He sustained a CVA w/ right frontal cortical infart posterior frontal region, symptoms included left hand and left arm weakness to the point he could not hold his coffee, This began yesterday morning. However, he later told the admitting hospitalist that he recalled dropping a bag of chips from his left hand 4 x while playing cribbage w/ friends the night before. Patient was admitted on aspirin and plavix, He was not resumed on Eliquis yesterday out of concern for conversion to hemrrhoragic stroke. He was begun on atorvastatin. Teleneurology was consulted yesterday. MRI reportedly more consistent w/ thrombotic stroke per Dr. Werner discussion w/ Dr. Campos. However in light of his afib I think this more likely embolic. Carotid doppler did not show any hemodynamically significant stenosis. Echo was done but not read at the time of my visit w/ him. Since my visit it has been read and demonstrated normal LV size but global HK LVEF 43%, no thrombus was noted. He has mild to moderate MR and moderate TR w/ mildly dilated RV w/ normal RV systolic fxn. Unfortunately this was not done w/ bubble study. No CTA of head or neck were done. Exam Narrative Exam Narrative: elderly white male sitting up in bed talking and joking w/ family alert and oriented, no acute distress Normal speech normal facial mimetic muscle movement. Full extraocular motion intact visual baires grossly intact Neck supple nontender no bruits Lungs are clear to auscultation Heart is irregularly irregular with a harsh systolic murmur over the apex Abdomen soft nontender nondistended Extremities no peripheral cyanosis or edema. Patient is right-handed he has good handgrip strength on the right hand normal arm strength. 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 Left leg strength testing was limited as the patient was lying in bed eating his dinner however he had good dorsiflexion and plantarflexion bilaterally seem slightly weaker with lifting his left leg off the bed compared to the right particularly when I gave him some resistance. Objective Last Vital Signs Temp 36.9 C 05/02/24 15:15 Pulse 95 H 05/02/24 15:15 Resp 18 05/02/24 15:15 BP 116/81 05/02/24 15:15 Pulse Ox 93 05/02/24 15:15 Laboratory Results - last 24 hr 05/01/24 16:30 Troponin I < 50 PAWSS Have you Been Recently Intoxicated or Drunk Within the Last 30 days?: No Have you Ever Experienced Previous Episodes of Alcohol Withdrawal?: No Have you ever Experienced Withdrawal Seizures?: No Have you ever Experienced Delirium Tremens(DT)s?: No Have you ever undergone Alcohol Rehabilitation Treatment (i.e, inpt ot outpatient treatment programs)?: No Have you ever Experienced Blackouts?: No Have you ever Combined Alcohol with other Downers within the last 90 days?: No Have you ever Combined Alcohol with any other Substance of Abuse during the last 90 days?: No Positive Blood Alcohol level on Presentation? [PCS.BAL]: No Evidence of Increased Autonomic Activity (i.e. HR>120, tremor, sweating, agitation, nausea)?: No Result: 0 Time Spent with Patient Time Spent with Patient: >50 minutes Time was spent: preparing to see the patient(eg.review tests), ordering medications,tests, procedures, referring, communicating with other health critical care nurse, indepentently interpreting results, counseling the patient and care coordination
[2024-05-02 20:14] VITALS: BP 113/57; PULSE 72; RESP 18; TEMP 36.8; O2SAT 95
[2024-05-02] MEDS: Atorvastatin 40 MG TAB 80 MG PO (20:30)
[2024-05-02] MEDS: Enoxaparin 40 MG/0.4 ML SYR SC (21:33)
[2024-05-02 23:33] VITALS: BP 98/60; PULSE 82; RESP 16; TEMP 36.6; O2SAT 95
--- NOTE | 2024-05-03 | DI.CT_ITS ---
Exam(s) CT BRAIN NECK CTA EXAM: CT BRAIN NECK CTA CLINICAL HISTORY: cva. TECHNIQUE: Imaging Protocol: Axial CT angiography was performed with multi-slice acquisition and mu lti-planar and MIP reconstructions. CONTRAST MATERIAL: Intravenous: Omnipaque 350 Contrast volume:70 ml COMPARISON: CT CT HEAD - STROKE PROTOCOL from 05/01/2024 MR MR BRAIN WO from 05/01/2024 FINDINGS: CT Head W/O and W contrast: Ventricles and Extra axial spaces: Normal in size and morphology for the patient's age. Hemorrhage: None. Cerebral parenchyma: No evidence of acute infarct or mass. Midline shift: None. Brainstem/Cerebellum: No acute findings.. Calvarium: Normal. Visualized Paranasal sinuses/Mastoids: Clear. Soft Tissues: Unremarkable. Enhancement: Normal. CTA Brain W: Internal Carotid Arteries: Petrous: Normal. Cavernous: Normal. Cerebral: Normal. Middle Cerebral Arteries: Right: No aneurysm, occlusion or significant stenosis. Left: No aneurysm, occlusion or significant stenosis. Anterior Cerebral Arteries: Right: No aneurysm, occlusion or significant stenosis. Left: No aneurysm, occlusion or significant stenosis. Posterior cerebral Arteries: Right: No aneurysm, occlusion or significant stenosis. Left: No aneurysm, occlusion or significant stenosis. Vertebral Arteries: Right: No aneurysm, occlusion or significant stenosis. Left: No aneurysm, occlusion or significant stenosis. Basilar Artery: No aneurysm, occlusion or significant stenosis. CTA Neck W: Common Carotid: Minimal plaque at the common carotid bulbs. Right: No dissection, occlusion or significant stenosis. Left: No dissection, occlusion or significant stenosis. External Carotid: Right: No dissection, occlusion or significant stenosis. Left: No dissection, occlusion or significant stenosis. Internal Carotid: Right: No dissection, occlusion or significant stenosis. Left: No dissection, occlusion or significant stenosis. Vertebral Artery: Right: No dissection, occlusion or significant stenosis. Left: No dissection, occlusion or significant stenosis. Lung Apices: No acute findings. Bones: No acute abnormality. Soft Tissues: Normal. IMPRESSION: 1. CTA brain: Normal CTA examination of the [place]. 2. Head CT: Unremarkable CT Head. Small area of acute cortical infarct in the right frontal parieta l region not visible on the current exam. 3. CTA neck: Minimal calcific plaque at the common carotid bulbs. No significant stenosis. RADIATION DOSE DELIVERED: Total DLP DATA REPOSITORY: All CT scans at this facility are submitted to the National Radiology Data Registry (NRDR) Dose Index Registry (DIR) with the [employer] [place] [employer] (ACR). RADIATION OPTIMIZATION: All CT scans at this facility use at least one of these dose optimization te chniques: automated exposure control; mA and/or kV adjustment per patient size (includes targeted exa ms where dose is matched to clinical indication); or iterative reconstruction.
[2024-05-03 03:39] VITALS: BP 106/80; PULSE 84; RESP 16; TEMP 36.2; O2SAT 94
[2024-05-03 07:34] VITALS: BP 111/77; PULSE 62; RESP 15; TEMP 36.7; O2SAT 94
[2024-05-03] MEDS: Normal Saline Flush 10 ML SYR IVP (08:43)
[2024-05-03] MEDS: Clopidogrel 75 MG TAB PO (08:44)
[2024-05-03] MEDS: Aspirin 81 MG CHEW PO (08:44)
[2024-05-03] MEDS: Empaglifozin 10 MG TAB PO (08:44)
[2024-05-03 10:03] LABS: HCT 50.1 % (40.0-50.0); MCH 31.7 pg (27.0-33.0); MCHC 33.9 % (32.0-36.0); MCV 94 fL (80-95); MPV 9.2 fL (8.0-11.0); Platelet Count 269 10^3/uL (130-400); RBC 5.36 10^6/uL (4.36-5.78); RDW 13.2 % (11.8-14.1); RDW-SD 45.1 fL; WBC 7.06 10^3/uL (4.4-10.8)
[2024-05-03 11:43] VITALS: BP 124/85; PULSE 88; RESP 15; TEMP 35.9; O2SAT 96
[2024-05-03] MEDS: Normal Saline - Diluent 50 ML VIAL IJ (13:13)
[2024-05-03] MEDS: Omnipaque 350 MG/ML 100 ML BTL 70 ML IJ (13:15)
--- NOTE | 2024-05-03 15:37 | DSE_ITS ---
Date of service: 05/03/24 Time of Service: 15:37 DS: Diagnosis Discharge Diagnosis (1) Acute CVA (cerebrovascular accident): Status: Acute Asessment and Plan: Acute left frontal posterior lobe CVA probably embolic in origin. No thrombosis seen on intracerebral or cervical vessels per CTA. Patient has some mild bilateral carotid bulb atherosclerosis. Patient should remain on atorvastatin 80 mg daily. Patient should resume his Xarelto as previously prescribed at 20 mg daily. We discussed pros and cons of addition of aspirin he has no cardiovascular reason for additional aspirin therapy and therefore to reduce his bleeding risk Mojgan will be discharged on Xarelto anticoagulation alone. (2) Paroxysmal atrial fibrillation: Status: Acute Asessment and Plan: Patient to resume his Xarelto and carvedilol (3) Cardiomyopathy: Status: Chronic Asessment and Plan: Patient resume Xarelto and carvedilol as listed above as well as continue his Jardiance at 10 mg daily furosemide 20 mg daily and spironolactone 25 mg daily (4) DVT prophylaxis: Status: Resolved Asessment and Plan: Patient was treated with enoxaparin while hospitalized until switched to Xarelto Discharge Plan Disposition Patient Disposition: Home Condition: Improving Discharge Details Reason For Visit: CVA Admit Date/Time: 05/01/24 16:31 Admit Provider: Donta Campos Attending Provider: Donta Campos Primary Care Provider: Dali Jefferson [facility] Course Hospital Course: Jimmie Cubags 78-year-old gentleman with a history of PAF, heart failure with re duced ejection fraction, history of prior CVA with posterior cerebral artery thrombus in 2021 who recovered with no residual deficit he taken himself off all of his medications several weeks prior to admission as he was suffering from depression from his 's recent . He presented with acute onset of left hand and arm weakness. Initially report this occurred on the morning of admission around 7:30 AM while pouring a couple coffee and dropping the coffee, also associated with hypoesthesia of his left hand however upon later recollection he had had trouble the night before while playing cribbage. Evaluation in the emergency department included called teleneurology at [facility]. Teleneurology was completed by Dr. Bethel Siegel, who upon interview of t he patient and through televised examination and review of the patient's chart including a stat CT scan of his head and MRI scan of his head which was obtained on the day of admission which demonstrated a small area of acute cortical infarction in the right posterior frontal lobe was determined because of his late presentation was not candidate for thrombolytic therapy. The neurologist recommended admission for complete cerebrovascular evaluation including cerebral MRI CTAs or MRAs of the head and neck transthoracic echocardiography and telemetry monitoring and obtaining a glycohemoglobin A1c and LDL level. He would recommend starting the patient on apixaban 5 mg p.o. twice daily and starting the patient on statin therapy with adjustment of dose based on the above lipid profile. He recommend adequate oral and/or IV hydration to optimize his intravascular volume and to allow some permissive hypertension if no cardiac contraindication with blood pressures allowing to drift up to as high as 220/120 for the first 24 hours and a maximal systolic pressure 180 for the next 24 hours followed by maximal systolic pressure 160 for the following 24 hours and after that target normotensive blood pressures below 140/90. Unfortunately a CTA of his head and neck and no lipid profile or glycohemoglobin A1c was obtained on admission. I assumed his care on 05/02/[address] had not been performed and MRI a of the head neck and not been performed order to head and neck CTA which showed no focal hemodynamic stenoses or thrombosis of his cervical or intracranial vasculature. He has minimal calcific plaque at the common carotid bulbs bilaterally. A carotid duplex study was obtained on 05/02/2024 and likewise showed no hemodynamically significant carotid stenoses. But also showed small focal calcific plaques of the common carotid bulbs. Unfortunately the stat thoracic echocardiogram that was ordered on admission was not ordered with a bubble study and demonstrated mild left ventricular systolic dysfunction with an LVEF of 43% with mild global hypokinesis. RV is mildly dilated with normal RV systolic function. Patient has mild to moderate mitral regurgitation and moderate tricuspid regurgitation with no significant oil changer his prior echocardiogram from 08/04/2022. I ordered a follow-up bubble study which was performed the next day and this was a limited echocardiogram solely for the bubble study and showed no evidence of PFO with agitated saline at rest or with Valsalva and with coughing. Lipid profile and glycohemoglobin A1c was never obtained and will be ordered for follow-up as an outpatient. Patient received physical therapy evaluation and treatment as well as occupational evaluation but never did have a speech therapy consult. Physical therapy recommended discharged home with no home health services as the patient preferred to do his home therapy on his own. Patient did not require any further inpatient PT acute care. Patient passed his Occupational Therapy screening showing independence with his ADL routines with no requirement for adaptive equipment. Patient was educated on upper strengthening exercises he can perform on his own. Patient's left hand weakness and paresthesia deficit had improved remarkably although there was still some perceptible fine motor weakness in the left hand but good strength at the forearm and upper arm and no noticeable hypoesthesia over the left forearm or hand. Patient is discharged in markedly improved control. Recommendation we will stop the aspirin and Plavix that he was started on here in the hospital and he was given a dose of Xarelto prior to discharge from the hospital. Patient has further doses of Xarelto at home and in fact his family brought in a bottle of Xarelto along with his other congestive heart failure medicines including Jardiance and spironolactone and Lasix and carvedilol. Patient will resume his home medications as previously prescribed. We corrected some duplications in his home medications both Eliquis and Xarelto are listed on his chart he is not currently taking Eliquis but is taking Xarelto. Furthermore he is not taking metoprolol succinate but he is taking low-dose carvedilol per his lead software architect at [facility]. Home Meds and New Rx's Prescriptions: Continued PreserVision AREDS 4,296 mcg-226 mg-90 mg capsule 1 cap PO BID carvedilol [Coreg] 12.5 mg tablet 12.5 mg PO BID Rx Instructions: must administer with a meal/food spironolactone 25 mg tablet 25 mg PO DAILY Xarelto 20 mg tablet 20 mg PO DAILY Rx Instructions: must administer with evening meal azelastine 137 mcg (0.1 %) aerosol,spray 1 spray intranasal BID Rx Instructions: administer into each nostril Jardiance 10 mg Tablet 10 mg PO QAM Qty: 30 3RF atorvastatin 80 mg tablet 80 mg PO QHS Qty: 30 3RF Changed furosemide 20 mg tablet 20 mg PO DAILY Qty: 0 0RF Patient Comments: TAKE ONE TABLET BY MOUTH EVERY DAY Discontinued metoprolol succinate 50 mg tablet extended release 24 hr 50 mg PO DAILY furosemide 40 mg tablet See Rx Instructions .ROUTE .COMPLEX Qty: 90 3RF Dose Instruction: TAKE ONE TABLET BY MOUTH EVERY DAY Rx Instructions: TAKE ONE TABLET BY MOUTH EVERY DAY Eliquis 5 mg Tablet 5 mg PO BID Qty: 60 3RF Discharge Instructions Instructions: Rivaroxaban, Atrial Fibrillation (DC), Stroke (DC), Heart failure and atrial fibrillation, Taking oral medicines for blood clots Additional Instructions: You were treated for acute stroke in which you had acute onset of left hand/arm weakness and were found to have an embolic stroke to the left frontal part of your brain. You have been off your medications for stroke prevention, your Xarelto and you have been off your heart failure medications for a month. Please resume your Xarelto 20 mg once per day. We have also listed all of the other medications you should be on for your heart failure and we have discontinued those which you were no longer taking or are duplicates. Please follow up w/ Dr. Jefferson and Dr. Buckner as outlined in your appointments. Get a follow up labs in one week including fasting lipid panel and glycohemoglobin A1C. Stand Alone Forms: Nursing Discharge Form Referrals: Dali Jefferson MD [Primary Care Provider] - (Message left with office to call you will either appointment time or to make a follow up appointment. Please call them tomorrow to make a follow up for 1-2 weeks if you do not hear from them today. ) Priscilla Buckner MD [ [facility] STAFF PHYSICIAN] - 05/22/24 9:15 am (recent embolic stroke, off Xarelto x 4 wks, now back on Xarelto, needs follow up in 2 to 4 weeks) Activity:: Activity as Tolerated Equipment/Supplies:: No Equipment Needed Diet:: Low Sodium Discharge Orders Discharge Orders: Discharge Order (Routine); Ordered 05/03/24 Ordered By: Rohan Arroyo Other Ambulatory Orders: Hemoglobin A1C (Routine) Timeframe: 1 Week Facility: [facility] - Location: Laboratory Outpatient - [facility] Ordered By: Rohan Arroyo Lipid 2 (Routine) Timeframe: 1 Week Facility: [facility] - Location: Laboratory Outpatient - [facility] Ordered By: Rohan Arroyo Discharge Data Discharge Date/Time-TO BE ENTERED AT DEPARTURE: 05/03/24 16:18 DS: Summary Time Spent with Patient providing and/or coordinating discharge services: Greater than 30 minutes Specific discharge activities: Interview/exam of patient; review of discharge instructions, completion of prescriptions/discharge instructions; discussion w/ nursing and CM; documentation of hospital visit Status at Discharge Functional status at discharge: independent ambulation Overall status at discharge: patient is progressing back to baseline Mental Status: mental status grossly normal Speech and Movement: speech and movement normal Mood: congruent mood Affect: normal affect Quality:SDOH Health Related Social Needs: Health related social needs personal safety Exam Narrative Exam Narrative: Jimmie is alert and oriented no dysarthric speech no facial asymmetry no visual field deficits Lungs are clear to auscultation Heart is irregularly irregular controlled rate Extremities 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 is just faintly weaker than the right but he has good range of motion and good upper arm strength no focal weakness in his legs no gross sensory deficit over his left arm with light touch Psych Mental Status: mental status grossly normal Speech and Movement: speech and movement normal Mood: congruent mood Affect: normal affect DS: Data Vitals/I&O Vitals and I&O: Vital Signs Temperature 35.9 C L 05/03/24 11:43 Temperature Source Tympanic 05/03/24 11:43 Pulse 88 05/03/24 11:43 Pulse Rhythm Irregular 05/03/24 11:19 Respiratory Rate 15 05/03/24 11:43 Respiratory Effort Normal 05/03/24 11:19 Respiratory Depth Normal 05/03/24 11:19 Respiratory Pattern Normal 05/03/24 11:19 Blood Pressure 124/85 05/03/24 11:43 Blood Pressure Position Sitting 05/01/24 11:53 Pulse Oximetry 96 05/03/24 11:43 Oxygen Delivery Method Room Air 05/03/24 11:43 Oxygen Flow Rate 0 05/03/24 11:43 Pain Level 0 05/03/24 11:43 Comment MAP 72 pt laying on left side. 05/02/24 23:33 Intake & Output 05/02/24 05/03/24 05/03/24 23:59 11:59 23:59 Intake Total 702 / 712 Balance 702 / 712 Intake: Oral 702 / 702 Other: Urine Color Yellow Urine Appearance Clear Clear Comment pt voided at toilet independently. x1 unknown void. Data Completed and Pending Labs on day of discharge: Labs from last 24 hours 05/03/24 09:50 WBC 7.06 RBC 5.36 Hgb 17.0 Hct 50.1 H MCV 94 MCH 31.7 MCHC 33.9 RDW 13.2 Plt Count 269 MPV 9.2 PFSH All Active Problems (Updated 05/03/24 @ 21:43 by Rohan Arroyo MD) Acute CVA (cerebrovascular accident) (Acute) Ischemic cerebrovascular accident (CVA) (Acute) Dysphagia (Acute) Brief loss of consciousness (Acute) Excessive cerumen in both ear canals (Acute) Pharyngoesophageal dysphagia (Acute) GERD (gastroesophageal reflux disease) (Chronic) Mitral regurgitation (Chronic) Systolic heart failure (Acute) Sensorineural hearing loss (SNHL) of both ears (Acute) Memory loss (Acute) Cellulitis of arm, right (Acute) Cardiomyopathy (Chronic) 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 Lost to cancer 03/2024 Time Spent with Patient Time Spent with Patient: 45-69 minutes Time was spent: preparing to see the patient(eg.review tests), ordering medications,tests, procedures, referring, communicating with other health rn complex care (Discussion was [facility] teleneurologist Dr. Clarke), indepentently interpreting results, counseling the patient and care coordination
[2024-05-03] MEDS: Rivaroxaban 10 MG TABLET 20 MG PO (16:05)
--- NOTE | 2024-05-03 16:24 | NUR.NOTE ---
Discharge education, including but not limited to: recognition of s/s of stroke, medication compliance, ordered activity restrictions, follow up appointments, etc. Patient verbalized understanding utilizing the teach back method. PIV previously removed by other mold bunch trimmer. Patient denied having any valuables/belongings secured in safe upon admission (states he had family take them home upon admission). All questions answered, patient denied having further questions or concerns at time of discharge.
--- NOTE | 2024-05-03 16:37 | PDOC.CMDIS ---
Date of service: 05/03/24 Time of Service: 16:37 Care Management Discharge SDOH Health Related Social Needs: Health related social needs personal safety Health related social needs: problem related to primary support group(Z63.9) (Complex grief; passed 03/2024 cancer. )
== END 2024-05-03 16:18 | disposition home or self-care (01) | DRG 65 ==
LOC: ER 16:49 → MS 18:30
PROVIDERS: Internal Medicine; Admitting Provider Family Medicine; Emergency Provider Nurse Practitioner Family; PCP Family Medicine; Visit Provider Family Medicine
DX: I63.49 Cerebral infarction due to embolism of other cerebral artery (principal); G81.94 Hemiplegia, unspecified affecting left nondominant side; I42.9 Cardiomyopathy, unspecified; I50.20 Unspecified systolic (congestive) heart failure; I48.0 Paroxysmal atrial fibrillation; Z86.73 Personal history of transient ischemic attack (TIA), and cerebral infarction without residual deficits; K21.9 Gastro-esophageal reflux disease without esophagitis; H90.3 Sensorineural hearing loss, bilateral; J43.9 Emphysema, unspecified; R91.1 Solitary pulmonary nodule; E78.5 Hyperlipidemia, unspecified; I08.1 Rheumatic disorders of both mitral and tricuspid valves
CPT/HCPCS: 00123; 36415; 70496; 70498; 80053; 85027; 93005; 97161; 97165; 99285; J1650; 70450; 70551; 71046; 83735; 84484; 85025; 93010; 93306; 93880; 99222; 99233; 99239; J3490

== ENCOUNTER → 2024-05-22 09:11 | Outpatient (BNVA) | payer MEDICARE, SELFPAY | PROVIDERS: PCP Family Medicine; Visit Provider Psychiatry & Neurology Neurology | DX: I48.0 Paroxysmal atrial fibrillation (principal); R41.3 Other amnesia; R13.10 Dysphagia, unspecified | CPT/HCPCS: 99215 ==

== ENCOUNTER 2024-06-27 18:36 | Emergency (ER) | payer MEDICARE, SELFPAY ==
[2024-06-27 18:38] VITALS: BP 103/65; PULSE 64; RESP 12; TEMP 36.5; O2SAT 91
[2024-06-27] MEDS: Triamcinolone 0.1% OINT 15 GM TUBE TP (19:32)
--- NOTE | 2024-06-27 19:36 | NUR.NOTE ---
Ultrasound requisition faxed to [facility] for RUE DVT study. Copy of req given to patient. He was advised to call DI scheduling 06/28/24 anytime after 7am.Nursing Note:
--- NOTE | 2024-06-27 23:12 | W.ED.GENAD ---
Discharge Plan Disposition Patient Disposition: Home Discharge Details Clinical Impression: Contact dermatitis Primary Care Provider: Dali Jefferson ED Provider: Henna Cam Home Meds and New Rx's Prescriptions: Continued PreserVision AREDS 4,296 mcg-226 mg-90 mg capsule 1 cap PO BID carvedilol [Coreg] 12.5 mg tablet 12.5 mg PO BID Rx Instructions: must administer with a meal/food spironolactone 25 mg tablet 25 mg PO DAILY Xarelto 20 mg tablet 20 mg PO DAILY Rx Instructions: must administer with evening meal azelastine 137 mcg (0.1 %) aerosol,spray 1 spray intranasal BID Rx Instructions: administer into each nostril Jardiance 10 mg Tablet 10 mg PO QAM Qty: 30 3RF atorvastatin 80 mg tablet 80 mg PO QHS Qty: 30 3RF furosemide 20 mg tablet 40 mg PO DAILY Patient Comments: TAKE ONE TABLET BY MOUTH EVERY DAY Discharge Instructions Instructions: Contact dermatitis, Skin Rash ED Additional Instructions: Use the triamcinolone 3 times daily, apply a light layer over the area of redness and pain Recheck in 48 hours with your primary care physician Call ultrasound in the morning to schedule an ultrasound of your arm swelling and return earlier should you have new or worsening complaints including fever, chills, or any worsening symptoms Referrals: Dali Jefferson MD [Primary Care Provider] - 2 days Discharge Data Discharge Date/Time-TO BE ENTERED AT DEPARTURE: 06/27/24 19:42 HPI General Date/Time Provider Initiated Documentation: 06/27/24 19:01. HPI Narrative: This 78-year-old male presents with report of rash on his right arm. He states he picked up a piece of pressure-treated flank approximately a week ago the pain is getting worse. He also states he has felt a pulsing sensation in this area. He states that there is swelling he has not noticed previously. He denies any chest pain or shortness of breath. Denies any dizziness or weakness. Denies fever or chills. Is anticoagulated on Xarelto for history of atrial fibrillation denies history of PE or DVT. Related Data Home Medications ?Medication ?Instructions ?Recorded ?Confirmed atorvastatin 80 mg tablet 80 mg PO QHS #30 tabs 11/04/21 06/27/24 empagliflozin 10 mg tablet 10 mg PO QAM #30 tabs 11/04/21 06/27/24 (Jardiance) carvedilol 12.5 mg tablet (Coreg) 12.5 mg PO BID 03/19/22 06/27/24 spironolactone 25 mg tablet 25 mg PO DAILY 03/19/22 06/27/24 vitamins A,C,G-[id number] 4,296 1 cap PO BID 03/24/23 06/27/24 mcg-226 mg-90 mg capsule (PreserVision AREDS) azelastine 137 mcg (0.1 %) nasal 1 spray intranasal BID 11/18/23 06/27/24 spray rivaroxaban 20 mg tablet (Xarelto) 20 mg PO DAILY 11/18/23 06/27/24 furosemide 20 mg tablet 40 mg PO DAILY 06/27/24 06/27/24 Previous Rx's ?Medication ?Instructions ?Recorded atorvastatin 80 mg tablet 80 mg PO QHS #30 tabs 11/04/21 empagliflozin 10 mg tablet 10 mg PO QAM #30 tabs 11/04/21 (Jardiance) Allergies Allergy/AdvReac Type Severity Reaction Status Date / Time shellfish derived Allergy Severe GI upset, Verified 06/27/24 18:42 nasal congestion General Stated Complaint: Cellulitis ANGELO: 4 Exam Narrative Exam Narrative: 78-year-old male, alert, oriented no acute distress, contact dermatitis noted to antecubital region, no evidence of cellulitis, swelling noted Course Vital Signs Vital signs: Vital Signs Temperature 36.5 C 06/27/24 18:38 Pulse 64 06/27/24 18:38 Respiratory Rate 12 06/27/24 18:38 Blood Pressure 103/65 06/27/24 18:38 Pulse Oximetry 91 L 06/27/24 18:38 Temperature 36.5 C 06/27/24 18:38 Temperature Source Oral 06/27/24 18:38 Pulse 64 06/27/24 18:38 Respiratory Rate 12 06/27/24 18:38 Respiratory Effort Normal, Non-Labored 06/27/24 18:47 Blood Pressure 103/65 06/27/24 18:38 Blood Pressure Position Sitting 06/27/24 18:38 Pulse Oximetry 91 L 06/27/24 18:38 Oxygen Delivery Method Room Air 06/27/24 18:38 Oxygen Flow Rate 0 06/27/24 18:38 Pain Level 8 06/27/24 18:38 Medical Decision Making 78-year-old male in no acute distress, alert and oriented, suspect the patient has contact dermatitis in the antecubital region, he has swelling without pulsing sensation. I will order an ultrasound of patient's right upper extremity. I will place patient on triamcinolone which she will apply 3 times daily. Discharged home in stable condition with stable vitals. Return precautions reviewed and patient expressed understanding Quality:SDOH Health Related Social Needs: Health related social needs problem related to primary support group(Z63.9) [facility] All Active Problems (Updated 06/27/24 @ 19:21 by JON Kearney) Contact dermatitis (Acute) Acute CVA (cerebrovascular accident) (Acute) Ischemic cerebrovascular accident (CVA) (Acute) Dysphagia (Acute) Brief loss of consciousness (Acute) Excessive cerumen in both ear canals (Acute) Pharyngoesophageal dysphagia (Acute) GERD (gastroesophageal reflux disease) (Chronic) Mitral regurgitation (Chronic) Systolic heart failure (Acute) Sensorineural hearing loss (SNHL) of both ears (Acute) Memory loss (Acute) Cellulitis of arm, right (Acute) Cardiomyopathy (Chronic) 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 Lost to cancer 03/2024
== END 2024-06-27 19:42 | disposition home or self-care (01) ==
PROVIDERS: Emergency Provider Physician Assistant; PCP Family Medicine
DX: L25.9 Unspecified contact dermatitis, unspecified cause (principal); M79.89 Other specified soft tissue disorders; J43.9 Emphysema, unspecified; I48.0 Paroxysmal atrial fibrillation; E78.5 Hyperlipidemia, unspecified; I50.20 Unspecified systolic (congestive) heart failure; Z79.01 Long term (current) use of anticoagulants; Z79.899 Other long term (current) drug therapy
CPT/HCPCS: 99282; 99284

== ENCOUNTER 2024-06-28 07:51 | Outpatient (CLI) | payer MEDICARE, SELFPAY ==
--- NOTE | 2024-06-28 | DI.US_ITS ---
Exam(s) US UPPER EXTREMITY VENOUS RT EXAM: US UPPER EXTREMITY VENOUS RT CLINICAL HISTORY: RUE SWELLING R22.31. TECHNIQUE: Ultrasound examination of the right upper extremity venous system(s) is performed using g rayscale, color-flow, and spectral Doppler analysis. COMPARISON: No exams were available for comparison FINDINGS: Right Deep Veins:The visualized internal jugular and subclavian veins are patent. The axillary and b rachial veins are patent and display normal color flow, augmentation and compressibility. Superficial Veins:The visualized cephalic and basilic veins are patent and display normal color flow, augmentation and compressibility. Soft tissues: Unremarkable. IMPRESSION: No evidence of a right upper extremity deep venous thrombosis. DATA REPOSITORY:
== END 2024-06-28 08:11 ==
LOC: DI 07:52
PROVIDERS: PCP Family Medicine; Visit Provider Physician Assistant
DX: R22.31 Localized swelling, mass and lump, right upper limb (principal)
CPT/HCPCS: 93971

== ENCOUNTER 2024-06-28 09:51 | Emergency (ER) | payer MEDICARE, SELFPAY ==
[2024-06-28 09:57] VITALS: BP 138/74; PULSE 72; RESP 16; TEMP 36.5; O2SAT 100
--- NOTE | 2024-06-28 10:18 | ED.GENADUL_ITS ---
Discharge Plan Disposition Patient Disposition: Home Condition: Good Discharge Details Clinical Impression: Contact dermatitis Primary Care Provider: Dali Jefferson ED Provider: Pamela Adler Home Meds and New Rx's Prescriptions: Continued PreserVision AREDS 4,296 mcg-226 mg-90 mg capsule 1 cap PO BID carvedilol [Coreg] 12.5 mg tablet 12.5 mg PO BID Rx Instructions: must administer with a meal/food spironolactone 25 mg tablet 25 mg PO DAILY Xarelto 20 mg tablet 20 mg PO DAILY Rx Instructions: must administer with evening meal azelastine 137 mcg (0.1 %) aerosol,spray 1 spray intranasal BID Rx Instructions: administer into each nostril Jardiance 10 mg Tablet 10 mg PO QAM Qty: 30 3RF atorvastatin 80 mg tablet 80 mg PO QHS Qty: 30 3RF furosemide 20 mg tablet 40 mg PO DAILY Patient Comments: TAKE ONE TABLET BY MOUTH EVERY DAY Discharge Instructions Instructions: Skin Rash ED Additional Instructions: Your ultrasound is reassuring, no evidence of clot. Please continue with the cream previously prescribed. Please monitor symptoms. Please follow up with primary care in one week for reevaluation. At that time, please also bring the advance directive forms that we begin filling out and have them reviewed with your primary care. These also need to be placed in appropriate medical places so your medical team has the appropriate information. If your rash worsens, you develop fevers or chills or other new/worsening symptoms please seek care urgently once again. Referrals: Dali Jefferson MD [Primary Care Provider] - Discharge Data Discharge Date/Time-TO BE ENTERED AT DEPARTURE: 06/28/24 10:34 HPI General Date/Time Provider Initiated Documentation: 06/28/24 09:57 . Limitations to Documentation: no limitations . Information obtained by: patient, RN notes reviewed and old records reviewed . History of Present Illness 78 year old M presents to the emergency department with the chief complaint of Right arm rash, follow-up upper extremity DVT study, described as mild, and is localized to the right and upper extremity. Patient started experiencing this week(s) and it has been constant. No relieving factors improve symptom(s), No exacerbating factors reported . Patient notes no other symptoms.. Patient did receive the following treatments prior to arrival, other (Triamcinolone cream) Related Data Home Medications ?Medication ?Instructions ?Recorded ?Confirmed atorvastatin 80 mg tablet 80 mg PO QHS #30 tabs 11/04/21 06/28/24 empagliflozin 10 mg tablet 10 mg PO QAM #30 tabs 11/04/21 06/28/24 (Jardiance) carvedilol 12.5 mg tablet (Coreg) 12.5 mg PO BID 03/19/22 06/28/24 spironolactone 25 mg tablet 25 mg PO DAILY 03/19/22 06/28/24 vitamins A,C,M-[id number] 4,296 1 cap PO BID 03/24/23 06/28/24 mcg-226 mg-90 mg capsule (PreserVision AREDS) azelastine 137 mcg (0.1 %) nasal 1 spray intranasal BID 11/18/23 06/28/24 spray rivaroxaban 20 mg tablet (Xarelto) 20 mg PO DAILY 11/18/23 06/28/24 furosemide 20 mg tablet 40 mg PO DAILY 06/27/24 06/28/24 Previous Rx's ?Medication ?Instructions ?Recorded atorvastatin 80 mg tablet 80 mg PO QHS #30 tabs 11/04/21 empagliflozin 10 mg tablet 10 mg PO QAM #30 tabs 11/04/21 (Jardiance) Allergies Allergy/AdvReac Type Severity Reaction Status Date / Time shellfish derived Allergy Severe GI upset, Verified 06/28/24 10:00 nasal congestion General Stated Complaint: GenMedical ANGELO: 4 Review of Systems Constitutional Constitutional: Reports as per HPI, Denies chills and Denies fever(s) Musculoskeletal Musculoskeletal: Reports as per HPI Integumentary/Breasts Skin/Breast: Reports as per HPI Neurologic Neurologic: Reports as per HPI, Denies sensory deficit and Denies paresthesias Exam Const General: cooperative, healthy appearing, comfortable, no acute distress and well developed Nutritional Appearance: average body habitus and well nourished Orientation: alert and awake Resp Effort & Inspection: normal respiratory effort, able to speak in complete sentences and no respiratory distress Cardio Rate: regular rate Rhythm: regular rhythm Skin Rashes: rashes noted (Right forearm) Neuro General: patient alert and patient awake Cognition: normal cognition Speech: speech normal Gait: normal gait Sensory Exam: no sensory deficits noted Extrem Elbow/forearm/wrist images: 2 1. Area of rash. Does have some excoriations. Patient has 2+ distal pulses. Sensation is intact. No pain with palpation. No palpable area of fluctuance to suggest abscess. No warmth over the area. There appears consistently pink with some excoriations. Psych Appearance: grossly normal and well kempt Mental Status: mental status grossly normal Speech and Movement: speech and movement normal Course Vital Signs Vital signs: Vital Signs Temperature 36.5 C 06/28/24 09:57 Pulse 72 06/28/24 09:57 Respiratory Rate 16 06/28/24 09:57 Blood Pressure 138/74 06/28/24 09:57 Pulse Oximetry 100 06/28/24 09:57 Temperature 36.5 C 06/28/24 09:57 Pulse 72 06/28/24 09:57 Respiratory Rate 16 06/28/24 09:57 Respiratory Effort Normal 06/28/24 09:59 Blood Pressure 138/74 06/28/24 09:57 Pulse Oximetry 100 06/28/24 09:57 Pain Level 0 06/28/24 09:57 Medical Decision Making Patient is a pleasant 78-year-old male presenting today chief complaint of rash on right arm and follow-up for ultrasound results after having ultrasound of right upper extremity for possible DVT. Please see note from yesterday. Patient was seen for the same at that time and was started on antifungal agent. Patient has been using that as prescribed, has not noted any significant changes of yet but feels that the rash also has not worsened. No recent fevers or chills. No numbness or tingling. On exam, patient appears nontoxic. Rashes along the anterior aspect of the right mid forearm with some excoriations. I agree with the current clinical plan of the antiinflammatory agent. Does not appear cellulitic. Area was palpated and no evidence to suggest abscess or crepitus. Ultrasound reviewed by radiologist FINDINGS: Right Deep Veins:The visualized internal jugular and subclavian veins are patent. The axillary and brachial veins are patent and display normal color flow, augmentation and compressibility. Superficial Veins:The visualized cephalic and basilic veins are patent and display normal color flow, augmentation and compressibility. Soft tissues: Unremarkable. IMPRESSION: No evidence of a right upper extremity deep venous thrombosis. Discussed these findings with the patient. He will continue with the current plan. Also follow-up with his primary care. In addition to discussing his rash, patient is also interested in discussing advanced directives. We did begin feeling this out together and I particularly assisted with some of the medical questions that the patient had. So that his recently passed and he has some large decisions to make which do make him quite tearful although he does have a plan moving forward. Since he does have support from family made him do not live locally. He reports that his primary care did encourage him to fill this out but he had not completed as of yet and did want some assistance. I helps with the medical portion, patient will fill in the remaining and then he will discuss this further with his primary care to ensure that these forms are completed appropriately and are put in appropriate medical homes. Of note, patient does wish to have CPR but it sounds like this is only if he is able to have a good outcome and does not want to have any type of the labored interventions. He does not want any intubation. Wishes to at home. He does not want to be on any machines or equipment. If he becomes significantly ill he does not want to have any antibiotics or the labor the illness. I did encourage that patient discuss this further with his primary care. However, getting the process going was requested by the patient. I also encouraged him to continue with the triamcinolone cream as previously advised. Return precautions discussed. All of his questions and concerns were addressed and he is in agreement this plan. This documentation was generated using [employer] dictation system, please disregard any oddities of phrase or misspellings. Quality:SDOH Health Related Social Needs: 2 Health related social needs problem related to primary support group(Z63.9) PFSH All Active Problems (Updated 06/28/24 @ 10:23 by JON Crawford) Contact dermatitis (Acute) Contact dermatitis (Acute) Acute CVA (cerebrovascular accident) (Acute) Ischemic cerebrovascular accident (CVA) (Acute) Dysphagia (Acute) Brief loss of consciousness (Acute) Excessive cerumen in both ear canals (Acute) Pharyngoesophageal dysphagia (Acute) GERD (gastroesophageal reflux disease) (Chronic) Mitral regurgitation (Chronic) Systolic heart failure (Acute) Sensorineural hearing loss (SNHL) of both ears (Acute) Memory loss (Acute) Cellulitis of arm, right (Acute) Cardiomyopathy (Chronic) 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 Lost to cancer 03/2024
== END 2024-06-28 10:34 | disposition home or self-care (01) ==
PROVIDERS: Emergency Provider Physician Assistant; PCP Family Medicine
DX: L25.9 Unspecified contact dermatitis, unspecified cause (principal)
CPT/HCPCS: 99281; 99283

== ENCOUNTER 2024-08-26 09:42 | Emergency (ER) | payer MEDICARE, SELFPAY ==
--- NOTE | 2024-08-26 09:45 | DI.RAD_ITS ---
Exam(s) XR HIP LT COMPLETE AP PELVIS EXAM: XR HIP LT COMPLETE AP PELVIS CLINICAL HISTORY: left hip pain. TECHNIQUE: 2D digital imaging was performed. COMPARISON: No exams were available for comparison FINDINGS: 3 views No evidence of acute fracture or dislocation. There are mild degenerative changes. No osseous lesio ns. Bone density appears normal. Sacroiliac joints unremarkable. IMPRESSION: No acute osseous findings in the pelvis and hips. Mild degenerative changes in the hips. DATA REPOSITORY: RADIATION DOSE DELIVERED:
[2024-08-26 09:52] VITALS: BP 90/74; PULSE 91; RESP 16; TEMP 36.6; O2SAT 97
--- NOTE | 2024-08-26 09:52 | ED.GENADUL_ITS ---
Discharge Plan Disposition Patient Disposition: Home Discharge Details Clinical Impression: Acute pain of left hip Primary Care Provider: Dlai Jefferson ED Provider: Donta Lennon Home Meds and New Rx's Prescriptions: Continued PreserVision AREDS 4,296 mcg-226 mg-90 mg capsule 1 cap PO BID carvedilol [Coreg] 12.5 mg tablet 12.5 mg PO BID Rx Instructions: must administer with a meal/food spironolactone 25 mg tablet 25 mg PO DAILY Xarelto 20 mg tablet 20 mg PO DAILY Rx Instructions: must administer with evening meal azelastine 137 mcg (0.1 %) aerosol,spray 1 spray intranasal BID Rx Instructions: administer into each nostril Jardiance 10 mg Tablet 10 mg PO QAM Qty: 30 3RF atorvastatin 80 mg tablet 80 mg PO QHS Qty: 30 3RF furosemide 20 mg tablet 40 mg PO DAILY Patient Comments: TAKE ONE TABLET BY MOUTH EVERY DAY Discharge Instructions Additional Instructions: You are seen in the emergency department for your hip pain. Your x-ray and CT showed no sign of any fractures. As we discussed you may bear weight on your left lower extremity as you are able to tolerate. Please follow-up next week with your primary care provider as you may benefit from a repeat x-ray or additional imaging if you have persistent pain. Please return to the ED if your foot turns blue or if you develop fevers. For your pain please take medications as follows: 1. Take acetaminophen (Tylenol), 1,000 mg (two 500 mg tabs) every 6 hours HPI General Date/Time Provider Initiated Documentation: 08/26/24 09:52 . HPI Narrative: MDM This is an overall very well-appearing normothermic and not tachycardic 79-year-old male with left hip pain most concerning for musculoskeletal sprain given lack of mechanism. No pain out of proportion to suggest necrotizing soft tissue infection. Based on age will obtain x-ray to assess for any traumatic injuries. No fevers to suggest septic arthritis. No rash to hip to suggest zoster. No abdominal pain nausea vomiting no abdominal tenderness to suggest referred pain. No dysuria nor frequency to suggest UTI. Based on twisting mechanism my suspicion for gouty arthritis is low. Based on low mechanism of injury if screening x-ray is unremarkable will defer CT scan and advised weightbearing as tolerated. Left foot warm well-perfused so I am not concern for critical limb ischemia so I do not feel the patient requires a CT angiogram with runoffs. No chest pain to suggest ACS. Patient's vital signs are notable for mild hypotension which patient has had in the past. He is on carvedilol and spironolactone which she took this morning. 1 PM Patient had an abnormal x-ray so I obtained a CT scan. There were no definitive fractures though the images degraded by motion artifact. Advised patient to return to the ED if his foot turns blue or if he lost feeling in his foot or if he had worsening pain or take any other falls. I also advised that he follow-up with his primary care provider next week. If his symptoms worsen or do not improve he may or may not benefit from a more sensitive test such as an MRI but will defer this decision to his PCP. Patient understood his return indications and he was discharged with an empiric trial of expectant outpatient management. HPI This is a 79-year-old male prior history of CVA arrived emergency department private vehicle in setting of left hip pain. Patient was reportedly helping move a car yesterday and twisted his hip. He immediately had severe pain but was able to walk well. When he woke up this morning he had worsening pain. He did not take any pain medications yet today. He is using crutches. He has had no fevers nausea vomiting chest pain dysuria or frequency. Exam General: Well-appearing in no acute distress speaking in complete sentences. Head: Normocephalic, atraumatic. Eye: Extraocular eye movements intact. No conjunctival injection. No scleral icterus. Ear, nose, mouth, throat: Grossly normal inspection. Normal voice, handling secretions normally. Neck: Trachea midline. Cardiovascular: Well-perfused distal extremities. Respiratory: Nonlabored respiration. Gastrointestinal: Nondistended abdomen. Musculoskeletal: Left hip no obvious deformities. Pelvis stable. No pain with passive range of motion left hip where there is full range of motion. No tenderness to femur knee, and tibia fibula nor foot. Left foot warm well- perfused 2+ PT and DP pulses. 5 out of 5 bilateral foot strength. Patient does have mild tenderness on palpation of his proximal and lateral left femur. No deformities. No crepitance. Skin: Normal for age and race, grossly normal temperature and turgor. No acute rash. Neurologic: Alert and appropriate, no apparent acute deficits. Psychiatric: Mood and manner are appropriate. Grooming and personal hygiene are appropriate. Related Data Home Medications ?Medication ?Instructions ?Recorded ?Confirmed atorvastatin 80 mg tablet 80 mg PO QHS #30 tabs 11/04/21 08/26/24 empagliflozin 10 mg tablet 10 mg PO QAM #30 tabs 11/04/21 08/26/24 (Jardiance) carvedilol 12.5 mg tablet (Coreg) 12.5 mg PO BID 03/19/22 08/26/24 spironolactone 25 mg tablet 25 mg PO DAILY 03/19/22 08/26/24 vitamins A,C,P-uoqo-xhjsjn 4,296 1 cap PO BID 03/24/23 08/26/24 mcg-226 mg-90 mg capsule (PreserVision AREDS) azelastine 137 mcg (0.1 %) nasal 1 spray intranasal BID 11/18/23 08/26/24 spray rivaroxaban 20 mg tablet (Xarelto) 20 mg PO DAILY 11/18/23 08/26/24 furosemide 20 mg tablet 40 mg PO DAILY 06/27/24 08/26/24 Previous Rx's ?Medication ?Instructions ?Recorded atorvastatin 80 mg tablet 80 mg PO QHS #30 tabs 11/04/21 empagliflozin 10 mg tablet 10 mg PO QAM #30 tabs 11/04/21 (Jardiance) Allergies Allergy/AdvReac Type Severity Reaction Status Date / Time shellfish derived Allergy Severe GI upset, Verified 08/26/24 09:51 nasal congestion General ANGELO: 4 Medical Decision Making Quality:SDOH Health Related Social Needs: Health related social needs problem related to primary support group(Z63.9) PFSH All Active Problems (Updated 08/26/24 @ 10:42 by Donta Lennon MD) Acute pain of left hip (Acute) Acute CVA (cerebrovascular accident) (Acute) Ischemic cerebrovascular accident (CVA) (Acute) Dysphagia (Acute) Brief loss of consciousness (Acute) Excessive cerumen in both ear canals (Acute) Pharyngoesophageal dysphagia (Acute) GERD (gastroesophageal reflux disease) (Chronic) Mitral regurgitation (Chronic) Systolic heart failure (Acute) Sensorineural hearing loss (SNHL) of both ears (Acute) Memory loss (Acute) Cellulitis of arm, right (Acute) Cardiomyopathy (Chronic) 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 Lost to cancer 03/2024
[2024-08-26] MEDS: Acetaminophen 500 MG TAB 1000 MG PO (10:08)
[2024-08-26 10:35] VITALS: BP 113/84; PULSE 83; RESP 16; O2SAT 93
--- NOTE | 2024-08-26 11:48 | DI.VRAD_ITS ---
PROCEDURE INFORMATION: Exam: XR Left Hip Exam date and time: 08/26/2024 10:16 AM Age: 79 years old Clinical indication: Hip pain; Left hip TECHNIQUE: Imaging protocol: Radiologic exam of the left hip. Views: 2 or 3 views hip with pelvis when performed. COMPARISON: No relevant prior studies available. FINDINGS: Bones/joints: Mild narrowing left hip joint space. Mild hypertrophic bony changes/marginal spurring. Mild bony protrusion femoral head-neck. Correlate for femoroacetabular impingement (MARIE) or other process. No displaced fracture nor dislocation seen of the left hip. Degenerative changes spine. Soft tissues: Unremarkable. Vasculature: Vascular calcifications. IMPRESSION: Arthritic changes left hip. Please see body of report. Dictated and Authenticated by: Jeff Neri MD. Ordering:STEFANIE Longo MD
--- NOTE | 2024-08-26 12:00 | DI.CT_ITS ---
Exam(s) CT LOWER EXTREMITY LT WO EXAM: CT LOWER EXTREMITY LT WO CLINICAL HISTORY: Left hip pain abnormal x-ray. TECHNIQUE: Imaging Protocol: Axial computed tomography images with coronal and sagittal reformatted images were created and reviewed. CONTRAST MATERIAL: Intravenous: Omnipaque 350 Contrast volume:structured data in ml Contrast route:I V - Oral: yes / no COMPARISON: Proceeding plain films reviewed. FINDINGS: Study interpretation is somewhat limited by motion artifact. There is no obvious fracture in the hip and femur. There is degenerative osteoarthritic narrowing of the posterior lateral aspect of the joint space with joint space narrowing and degenerative subartic ular cysts on both sides the joint. Remainder of the femur more distally appears unremarkable with t he exception of a tiny benign cyst in the lateral femoral condyle in distal femur. There are no frac ture seen in the ipsilateral pubic rami.. IMPRESSION: Degenerative changes in the left hip. No fractures in the left hip and femur evident. RADIATION DOSE DELIVERED: 434.17mGy.cm Total DLP DATA REPOSITORY: All CT scans at this facility are submitted to the National Radiology Data Registry (NRDR) Dose Index Registry (DIR) with the [employer] (ACR). RADIATION OPTIMIZATION: All CT scans at this facility use at least one of these dose optimization te chniques: automated exposure control; mA and/or kV adjustment per patient size (includes targeted exa ms where dose is matched to clinical indication); or iterative reconstruction.
--- NOTE | 2024-08-26 12:56 | DI.VRAD_ITS ---
PROCEDURE INFORMATION: Exam: CT Left Lower Extremity, Hip Exam date and time: 08/26/2024 12:16 PM Age: 79 years old Clinical indication: Pain; Hip; Left; Additional info: Left hip pain abnormal x-ray TECHNIQUE: Imaging protocol: CT of the left lower extremity with intravenous contrast was performed. Exam focused on the hip. Contrast material: WITHOUT; COMPARISON: CR XR HIP LT COMPLETE AP PELVIS 08/26/2024 10:16 AM FINDINGS: Limitations: Images degraded by artifact, motion. Bones/joints: Severe narrowing upper-outer left hip joint space, femoroacetabular relationship. Periarticular subchondral cystic changes, marginal spurring. No displaced fracture nor dislocation seen of left hip. Motion artifact degrades images of portions of femur, indeterminate for fractures or other findings in those regions. Soft tissues: Unremarkable. Vasculature: Atherosclerotic disease. Bowel: Diverticula sigmoid colon without current radiographic evidence of acute diverticulitis visualized portion sigmoid colon partially included. Urinary bladder: Urinary bladder appears full partially included. Mild diffuse wall thickening visualized portions urinary bladder partially included. Reproductive: Prostate appears enlarged, partially included. IMPRESSION: Images degraded by artifact, motion. Arthritic changes left hip. No displaced fracture seen of left hip. Portions of left femur indeterminate. Please see body of report for additional findings. Dictated and Authenticated by: Jeff Neri MD. Ordering:STEFANIE Longo MD
== END 2024-08-26 13:39 | disposition home or self-care (01) ==
PROVIDERS: Emergency Provider Emergency Medicine; PCP Family Medicine
DX: M25.552 Pain in left hip (principal); I48.0 Paroxysmal atrial fibrillation; E78.5 Hyperlipidemia, unspecified; Z86.73 Personal history of transient ischemic attack (TIA), and cerebral infarction without residual deficits; Z79.01 Long term (current) use of anticoagulants
CPT/HCPCS: 99285; 73502; 73700; 99284

== ENCOUNTER 2024-08-28 12:04 | Emergency (ER) | payer MEDICARE, SELFPAY ==
[2024-08-28 12:08] VITALS: BP 156/96; PULSE 83; RESP 15; TEMP 36.4; O2SAT 94
--- NOTE | 2024-08-28 12:34 | W.ED.GENAD ---
Discharge Plan Disposition Patient Disposition: Home Condition: Good Discharge Details Clinical Impression: Arthralgia of left hip Primary Care Provider: Dali Jefferson ED Provider: Jeff Iyer Home Meds and New Rx's Prescriptions: New prednisone 50 mg tablet 50 mg PO DAILY Qty: 4 0RF No Action PreserVision AREDS 4,296 mcg-226 mg-90 mg capsule 1 cap PO BID carvedilol [Coreg] 12.5 mg tablet 12.5 mg PO BID Rx Instructions: must administer with a meal/food spironolactone 25 mg tablet 25 mg PO DAILY Xarelto 20 mg tablet 20 mg PO DAILY Rx Instructions: must administer with evening meal azelastine 137 mcg (0.1 %) aerosol,spray 1 spray intranasal BID Rx Instructions: administer into each nostril Jardiance 10 mg Tablet 10 mg PO QAM Qty: 30 3RF atorvastatin 80 mg tablet 80 mg PO QHS Qty: 30 3RF furosemide 20 mg tablet 40 mg PO DAILY Patient Comments: TAKE ONE TABLET BY MOUTH EVERY DAY Discharge Instructions Instructions: Hip pain in adults Additional Instructions: At this time review of your x-ray and CT imaging does not show any evidence of fracture or significant abnormality. I am concerned that you have inflammation and irritation of the joint, the bursa, and the muscle. Please apply the Voltaren gel 2-3 times per day. Please take 1000 mg of Tylenol every 6 hours. Please take the prednisone as prescribed. Please make sure to take the medications with Tums, Pepto-Bismol, or Maalox especially if you develop any discomfort in your stomach. Please go very easy on your hip for the next week. Avoid any aggressive activity as this can worsen the inflammation. If you still have persistent symptomatology even after a week of this therapy, then you may require further evaluation and reassessment. If you notice any worsening of your symptoms, or any new symptoms such as vomiting, diarrhea, fever, chills, shortness of breath, chest pain, numbness, weakness, or fainting , please return immediately to the emergency department for reevaluation. Please follow up with your primary care provider as soon as possible for reassessment and reevaluation. As always, it was a pleasure participating in your medical care today. Referrals: Dali Jefferson MD [Primary Care Provider] - Discharge Data Discharge Date/Time-TO BE ENTERED AT DEPARTURE: 08/28/24 13:00 HPI General Date/Time Provider Initiated Documentation: 08/28/24 12:12. HPI Narrative: This is a pleasant 79-year-old male with a past medical history of stroke, GERD, paroxysmal A-fib on Xarelto, who presents today for evaluation of left thigh pain and left hip pain. Patient states that about 4 days ago he was helping to lift something and as he shifted his hips laterally from right to left he felt a pull in his left lateral thigh and hip region. Symptoms were mild at first and improved with massage. However symptoms worsened and he came to the ER 2 days ago for further evaluation. At that time x-ray was ordered and showed some joint degeneration, CT scan was then ordered and showed no acute process but did show some joint degeneration. Patient was recommended to continue Tylenol at home. Patient has been doing that but at a low dose, which she admits was his mistake. He has only been taking 500 mg intermittently. He states that the pain persists, it is worse when extending at the hip and trying to walk or bear weight. However there is also pain when lying flat and then extending the hip. Pain is localized specifically to the area of the left greater trochanter and down the lateral thigh. He denies any new trauma. He denies any change in color for his extremities. He denies any new falls. No back pain, no low back pain, no posterior pelvic pain. No other complaints at this time. Related Data Home Medications ?Medication ?Instructions ?Recorded ?Confirmed atorvastatin 80 mg tablet 80 mg PO QHS #30 tabs 11/04/21 08/28/24 empagliflozin 10 mg tablet 10 mg PO QAM #30 tabs 11/04/21 08/28/24 (Jardiance) carvedilol 12.5 mg tablet (Coreg) 12.5 mg PO BID 03/19/22 08/28/24 spironolactone 25 mg tablet 25 mg PO DAILY 03/19/22 08/28/24 vitamins A,C,A-fvvc-gizznz 4,296 1 cap PO BID 03/24/23 08/28/24 mcg-226 mg-90 mg capsule (PreserVision AREDS) azelastine 137 mcg (0.1 %) nasal 1 spray intranasal BID 11/18/23 08/28/24 spray rivaroxaban 20 mg tablet (Xarelto) 20 mg PO DAILY 11/18/23 08/28/24 furosemide 20 mg tablet 40 mg PO DAILY 06/27/24 08/28/24 prednisone 50 mg tablet 50 mg PO DAILY #4 tabs 08/28/24 Previous Rx's ?Medication ?Instructions ?Recorded atorvastatin 80 mg tablet 80 mg PO QHS #30 tabs 11/04/21 empagliflozin 10 mg tablet 10 mg PO QAM #30 tabs 11/04/21 (Jardiance) prednisone 50 mg tablet 50 mg PO DAILY #4 tabs 08/28/24 Allergies Allergy/AdvReac Type Severity Reaction Status Date / Time shellfish derived Allergy Severe GI upset, Verified 08/28/24 12:10 nasal congestion General Stated Complaint: Orthopedic ANGELO: 4 Review of Systems All systems reviewed & are unremarkable except as noted in HPI and below Exam Narrative Exam Narrative: 1.Const: Well-nourished, Well-developed, appearing stated age 2.Eyes: PERRL, no conjunctival injection, and symmetrical lids. 3.ENT: Atraumatic external nose and ears. Moist MM. Neck: Symmetric, trachea midline, No thyromegaly. 4.CVS: +S1/S2, Peripheral pulses 2+ and equal in all extremities. Brisk capillary refill in all extremities. 5.RESP: Unlabored respiratory effort. Clear to auscultation bilaterally. No wheezes rales or rhonchi 6.GI: Soft, Nontender/Nondistended, No hepatosplenomegaly. No guarding or rebound. 7.MSK: Normocephalic/Atraumatic, no significant reproducible tenderness on palpation of the greater trochanter or the lateral thigh. Minimal achiness on deep palpation of the left greater trochanter. Pain is present with extension at the hip, as well as external rotation. Pain improved with internal rotation. No redness or warmth to suggest infection or cellulitis. No atypical muscle spasm to suspect muscular tear. No pain on palpation of the thoracic lumbar or sacral spine. No pain at the PSIS or the SI joint. Distal exam demonstrates intact +2 dorsalis pedis and posterior tibial pulses, brisk capillary refill for all toes, normal sensation throughout. No pain with movement of the knee calf or ankle or foot. 8.Skin: Warm, Dry. No rashes or lesions. 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 Sensation grossly intact, no focal neurologic deficits. 10.Psych: (AAO) x3. Appropriate mood and affect Course Vital Signs Vital signs: Vital Signs Temperature 36.4 C 08/28/24 12:08 Pulse 83 08/28/24 12:08 Respiratory Rate 15 08/28/24 12:08 Blood Pressure 156/96 H 08/28/24 12:08 Pulse Oximetry 94 08/28/24 12:08 Temperature 36.4 C 08/28/24 12:08 Pulse 83 08/28/24 12:08 Respiratory Rate 15 08/28/24 12:08 Blood Pressure 156/96 H 08/28/24 12:08 Blood Pressure Position Sitting 08/28/24 12:08 Pulse Oximetry 94 08/28/24 12:08 Oxygen Delivery Method Room Air 08/28/24 12:08 Oxygen Flow Rate 0 08/28/24 12:08 Medical Decision Making This is a pleasant 79-year-old male with a past medical history of stroke, GERD, paroxysmal A-fib on Xarelto, who presents today for evaluation of left thigh pain and left hip pain. Patient states that about 4 days ago he was helping to lift something and as he shifted his hips laterally from right to left he felt a pull in his left lateral thigh and hip region. Symptoms were mild at first and improved with massage. However symptoms worsened and he came to the ER 2 days ago for further evaluation. At that time x-ray was ordered and showed some joint degeneration, CT scan was then ordered and showed no acute process but did show some joint degeneration. Patient was recommended to continue Tylenol at home. Patient has been doing that but at a low dose, which she admits was his mistake. He has only been taking 500 mg intermittently. He states that the pain persists, it is worse when extending at the hip and trying to walk or bear weight. However there is also pain when lying flat and then extending the hip. Pain is localized specifically to the area of the left greater trochanter and down the lateral thigh. He denies any new trauma. He denies any change in color for his extremities. He denies any new falls. No back pain, no low back pain, no posterior pelvic pain. No other complaints at this time. Physical exam demonstrates no significant reproducible tenderness on palpation of the greater trochanter or the lateral thigh. Minimal achiness on deep palpation of the left greater trochanter. Pain is present with extension at the hip, as well as external rotation. Pain improved with internal rotation. No redness or warmth to suggest infection or cellulitis. No atypical muscle spasm to suspect muscular tear. No pain on palpation of the thoracic lumbar or sacral spine. No pain at the PSIS or the SI joint. Distal exam demonstrates intact +2 dorsalis pedis and posterior tibial pulses, brisk capillary refill for all toes, normal sensation throughout. No pain with movement of the knee calf or ankle or foot. With no evidence to suggest infection, dislocation, or muscle rupture, I do not see an indication for repeat x-ray or CT imaging. Pain seems to be more consistent clinically with bursal irritation and potential joint inflammation secondary to his known arthritis and the pattern which brought the pain about. Patient is able to walk and bear weight well, and he is able to walk at quite a brisk pace. I suspect that the residual pain is secondary to localized inflammation unfortunately may be secondary to insufficient NSAID therapy. Will recommend 1000 mg every 6 hours of Tylenol. Additionally will recommend Voltaren gel topically which will give here for additional NSAID treatment. Will avoid ibuprofen secondary to his anticoagulation status. No evidence to suggest large hematoma based on exam. No evidence to suggest neurovascular compromise. Additionally we will do a short 5-day steroid burst for treatment of potential bursal inflammation and severe arthritis. Symptoms appear clinically inconsistent with cauda equina syndrome, and there is no evidence of neurovascular compromise. Patient will be discharged home. Discussed red flags which to return. I have extensively reviewed the treatment plan and discharge instructions with the patient. I have addressed all patient concerns at this time. The patient was made aware of what symptoms to monitor for that would warrant a return to the emergency department. Discussed the plan with the patient, they demonstrate verbal understanding and agreement with our assessment and plan at this time. The documentation in this chart was dictated using [employer] dictation software. Please excuse any dictation errors. Quality:SDOH Health Related Social Needs: Health related social needs problem related to primary support group(Z63.9) PFSH All Active Problems Arthralgia of left hip (Acute) Acute pain of left hip (Acute) Acute CVA (cerebrovascular accident) (Acute) Ischemic cerebrovascular accident (CVA) (Acute) Dysphagia (Acute) Brief loss of consciousness (Acute) Excessive cerumen in both ear canals (Acute) Pharyngoesophageal dysphagia (Acute) GERD (gastroesophageal reflux disease) (Chronic) Mitral regurgitation (Chronic) Systolic heart failure (Acute) Sensorineural hearing loss (SNHL) of both ears (Acute) Memory loss (Acute) Cellulitis of arm, right (Acute) Cardiomyopathy (Chronic) 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 Lost to cancer 03/2024 PAWSS Have you Been Recently Intoxicated or Drunk Within the Last 30 days?: No Have you Ever Experienced Previous Episodes of Alcohol Withdrawal?: No Have you ever Experienced Withdrawal Seizures?: No Have you ever Experienced Delirium Tremens(DT)s?: No Have you ever undergone Alcohol Rehabilitation Treatment (i.e, inpt ot outpatient treatment programs)?: No Have you ever Experienced Blackouts?: No Have you ever Combined Alcohol with other Downers within the last 90 days?: No Have you ever Combined Alcohol with any other Substance of Abuse during the last 90 days?: No Positive Blood Alcohol level on Presentation? [PCS.BAL]: No Evidence of Increased Autonomic Activity (i.e. HR>120, tremor, sweating, agitation, nausea)?: No Result: 0
[2024-08-28] MEDS: Diclofenac 1% Gel 100 GM TUBE TP (12:46)
[2024-08-28] MEDS: Ketorolac 30 MG/ML VIAL IM (12:46)
[2024-08-28] MEDS: predniSONE 20 MG TAB 60 MG PO (12:46)
== END 2024-08-28 13:00 | disposition home or self-care (01) ==
PROVIDERS: Emergency Provider Student in an Organized Health Care Education/Training Program; PCP Family Medicine
DX: M25.552 Pain in left hip (principal); I48.0 Paroxysmal atrial fibrillation; E78.5 Hyperlipidemia, unspecified; Z86.73 Personal history of transient ischemic attack (TIA), and cerebral infarction without residual deficits; Z79.01 Long term (current) use of anticoagulants; Z79.899 Other long term (current) drug therapy
CPT/HCPCS: 96372; 99284; J1885; J7512

== ENCOUNTER 2024-09-05 10:05 | Emergency (ER) | payer MEDICARE, SELFPAY ==
[2024-09-05 10:10] VITALS: BP 107/74; PULSE 66; RESP 18; TEMP 36.8; O2SAT 97
--- NOTE | 2024-09-05 10:27 | W.ED.GENAD ---
Discharge Plan Disposition Patient Disposition: Home Condition: Stable Discharge Details Clinical Impression: Pain in left leg Primary Care Provider: Dali Jefferson ED Provider: Jeff Michael Home Meds and New Rx's Prescriptions: Continued PreserVision AREDS 4,296 mcg-226 mg-90 mg capsule 1 cap PO BID carvedilol [Coreg] 12.5 mg tablet 12.5 mg PO BID Rx Instructions: must administer with a meal/food spironolactone 25 mg tablet 25 mg PO DAILY Xarelto 20 mg tablet 20 mg PO DAILY Rx Instructions: must administer with evening meal azelastine 137 mcg (0.1 %) aerosol,spray 1 spray intranasal BID Rx Instructions: administer into each nostril Jardiance 10 mg Tablet 10 mg PO QAM Qty: 30 3RF atorvastatin 80 mg tablet 80 mg PO QHS Qty: 30 3RF furosemide 20 mg tablet 40 mg PO DAILY Patient Comments: TAKE ONE TABLET BY MOUTH EVERY DAY prednisone 50 mg tablet 50 mg PO DAILY Qty: 4 0RF furosemide 40 mg tablet 40 mg PO DAILY Patient Comments: TAKE ONE TABLET BY MOUTH EVERY DAY Discharge Instructions Instructions: Lower Extremity Muscle Strain, Sciatica Exercises, Meralgia paresthetica, Sciatica ED Additional Instructions: You were seen in the emergency department for your third visit for lower extremity pain. There is no acute emergent pathology happening here. You need to make an appointment with orthopedics, I have provided you a referral for physical therapy. You need to be taking 650 or 1000 mg of Tylenol every 6 hours. If you take 1000 mg every 6 hours please only do this for 1 week and then take 650 mg every 6 hours. Please continue to use the topical Voltaren gel on areas of pain, perform sciatica exercises and stretching, you state that you have been consistently working with your injury and you need time to rest. Please return to the emergency department for worsening numbness inability to move the leg, skin changes, temperature changes of the leg, unilateral leg swelling or severe back pain with urinary retention, bowel incontinence, numbness to the genitals. Stand Alone Forms: Physical Therapy Referral Referrals: [facility] [Provider Group] Dali Jefferson MD [Primary Care Provider] - Discharge Data Discharge Date/Time-TO BE ENTERED AT DEPARTURE: 09/05/24 10:44 HPI General Date/Time Provider Initiated Documentation: 12/24/24 10:08. HPI Narrative: 79 year-old male presents to ED today by POV/ambulating with a chief complaint of left lower leg pain - third visit, also having pain in L gluteal area with onset for the past two weeks. Patient received XR and CT of leg with no pathology- has not pursued orthopaedic visit, physical therapy, is not performing RICE therapy or taking adequate dosing of Tylenol. Quality described as straining type pain, no radiation to bruising, swelling, skin changes, deformity, redness, warmth to touch, numbness/tingling. Severity is described as severe. Palliating factors include isolated doses of Tylenol. Provoking factors include nothing specific. Patient not anticoagulated. Related Data Home Medications ?Medication ?Instructions ?Recorded ?Confirmed atorvastatin 80 mg tablet 80 mg PO QHS #30 tabs 11/04/21 09/05/24 empagliflozin 10 mg tablet 10 mg PO QAM #30 tabs 11/04/21 09/05/24 (Jardiance) carvedilol 12.5 mg tablet (Coreg) 12.5 mg PO BID 03/19/22 09/05/24 spironolactone 25 mg tablet 25 mg PO DAILY 03/19/22 09/05/24 vitamins A,C,N-rqag-eluokn 4,296 1 cap PO BID 03/24/23 09/05/24 mcg-226 mg-90 mg capsule (PreserVision AREDS) azelastine 137 mcg (0.1 %) nasal 1 spray intranasal BID 11/18/23 09/05/24 spray rivaroxaban 20 mg tablet (Xarelto) 20 mg PO DAILY 11/18/23 09/05/24 furosemide 20 mg tablet 40 mg PO DAILY 06/27/24 09/05/24 prednisone 50 mg tablet 50 mg PO DAILY #4 tabs 08/28/24 09/05/24 furosemide 40 mg tablet 40 mg PO DAILY 09/05/24 09/05/24 Previous Rx's ?Medication ?Instructions ?Recorded atorvastatin 80 mg tablet 80 mg PO QHS #30 tabs 11/04/21 empagliflozin 10 mg tablet 10 mg PO QAM #30 tabs 11/04/21 (Jardiance) prednisone 50 mg tablet 50 mg PO DAILY #4 tabs 08/28/24 Allergies Allergy/AdvReac Type Severity Reaction Status Date / Time shellfish derived Allergy Severe GI upset, Verified 09/05/24 10:18 nasal congestion General Stated Complaint: Orthopedic ANGELO: 4 Review of Systems All systems reviewed & are unremarkable except as noted in HPI and below Exam Narrative Exam Narrative: GENERAL APPEARANCE: Well-nourished, non-toxic, awake and alert, atraumatic, no acute distress. SKIN: Warm, pink, dry, intact, without rashes/lesions/ulcerations. HEAD: Normocephalic, atraumatic, normal hair distribution for gender/age. EYES: Normal conjunctiva, no exudates on lids/lashes. ENT: Nares patent, no circumoral cyanosis, no facial swelling NECK: Supple, trachea midline, painless cervical ROM. LUNGS/CHEST: Non-labored respirations, normal A/P diameter, symmetrical expansion, no chest wall deformity HEART (CV/PV): No peripheral edema, no JVD. ABDOMEN: Soft, non-distended, no guarding. MSK: Normal ROM, no swelling/deformity to bilateral UEs or LEs, moving all extremities without weakness, no cyanosis, spine midline without tenderness, normal curvature, left gluteal pain, left palpable tension in the anterior tibialis muscle, no knee joint line tenderness, neurovascular intact, strength and motion intact, no skin changes, no focal nodular swellings, no erythema or warmth to touch, no SI joint tenderness NEURO: Mental Status AAOx4 - alert to person, place, time, events No facial droop, no forehead involvement. Motor: No focal weakness - strength 5/5 in bilateral UEs and LEs, proximal and distal, symmetric. Sensory: sensation intact to light touch globally. Gait normal: patient ambulated without ataxia into ED room. PSYCH: euthymic, cooperative, pleasant, appropriate speech Course Vital Signs Vital signs: Vital Signs Temperature 36.8 C 09/05/24 10:10 Pulse 66 09/05/24 10:10 Respiratory Rate 18 09/05/24 10:10 Blood Pressure 107/74 09/05/24 10:10 Pulse Oximetry 97 09/05/24 10:10 Temperature 36.8 C 09/05/24 10:10 Temperature Source Tympanic 09/05/24 10:10 Pulse 66 09/05/24 10:10 Respiratory Rate 18 09/05/24 10:10 Blood Pressure 107/74 09/05/24 10:10 Blood Pressure Position Right Lateral 09/05/24 10:10 Pulse Oximetry 97 09/05/24 10:10 Oxygen Delivery Method Room Air 09/05/24 10:10 Oxygen Flow Rate 0 09/05/24 10:10 Pain Level 10 09/05/24 10:10 Medical Decision Making This dictation utilizes [id number] dictation software and may contain unedited grammatical errors. 79 year-old male presents to ED today by POV/ambulating with a chief complaint of left lower leg pain - third visit, also having pain in L gluteal area with onset for the past two weeks. Patient received XR and CT of leg with no pathology- has not pursued orthopaedic visit, physical therapy, is not performing RICE therapy or taking adequate dosing of Tylenol. Quality described as straining type pain, no radiation to bruising, swelling, skin changes, deformity, redness, warmth to touch, numbness/tingling. Severity is described as severe. Palliating factors include isolated doses of Tylenol. Provoking factors include nothing specific. Patients' medical history: History of CVA, GERD, dysphagia, heart failure, memory loss, cardiomyopathy, ataxia, emphysema, paroxysmal atrial fibrillation, hyperlipidemia. Family and social history: [ ]. Pertinent exam findings / vital signs include left gluteal pain, left palpable tension in the anterior tibialis muscle, no knee joint line tenderness, neurovascular intact, strength and motion intact, no skin changes, no focal nodular swellings, no erythema or warmth to touch, no SI joint tenderness. Differential / pathologies of concern include sciatica, paresthetica meralgia, muscle strain, unlikely DVT, not infectious etiology, not fracture. Diagnostic studies of: -None, patient has had negative XR's and CT at prior 2 visits. Interventions of: -Spent considerable time counseling the patient on proper Tylenol use, sparing use of Voltaren, physcial therapy necessity, rest, ice, compress elevate, and lidoderm patches & gentle heat/massage. ED Course/Assessment/Plan: 79-year-old male who is presenting for third visit for leg pain, likely paresthetica meralgia or muscle strain, he has attempted no conservative measures and has been increasing his walking despite needing rest, I counseled that he needs follow-up with physical therapy and possibly orthopedics for this issue, he has had no acute changes or deterioration of his neurovascular status, has had multiple images for results again no acute injury, counseled on significantly on conservative management at home and provided physical therapy referral, strict return criteria for any severe increase in the lateral leg swelling, inability move his leg. Findings not consistent with DVT,, infectious pathology, neurovascular compromise, fracture. Disposition of pain in left leg. Patient verbalized understanding of the plan and return to ED criteria and engaged in shared decision making. Medical Records Medical records reviewed: Yes I reviewed the patient's medical records. Quality:SDOH Health Related Social Needs: Health related social needs problem related to primary support group(Z63.9) [facility] All Active Problems (Updated 09/05/24 @ 10:29 by JON Manzanares) Pain in left leg (Acute) Arthralgia of left hip (Acute) Acute pain of left hip (Acute) Acute CVA (cerebrovascular accident) (Acute) Ischemic cerebrovascular accident (CVA) (Acute) Dysphagia (Acute) Brief loss of consciousness (Acute) Excessive cerumen in both ear canals (Acute) Pharyngoesophageal dysphagia (Acute) GERD (gastroesophageal reflux disease) (Chronic) Mitral regurgitation (Chronic) Systolic heart failure (Acute) Sensorineural hearing loss (SNHL) of both ears (Acute) Memory loss (Acute) Cellulitis of arm, right (Acute) Cardiomyopathy (Chronic) 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 Lost to cancer 03/2024
== END 2024-09-05 10:44 | disposition home or self-care (01) ==
PROVIDERS: Emergency Provider Physician Assistant; PCP Family Medicine
DX: M79.662 Pain in left lower leg (principal); I50.22 Chronic systolic (congestive) heart failure; I48.0 Paroxysmal atrial fibrillation; E78.5 Hyperlipidemia, unspecified; Z86.73 Personal history of transient ischemic attack (TIA), and cerebral infarction without residual deficits; Z79.01 Long term (current) use of anticoagulants; Z79.899 Other long term (current) drug therapy
CPT/HCPCS: 99283

== ENCOUNTER → 2024-11-20 08:44 | Outpatient (BNVA) | payer MEDICARE, SELFPAY | PROVIDERS: PCP Family Medicine; Visit Provider Psychiatry & Neurology Neurology | DX: I63.9 Cerebral infarction, unspecified (principal); R41.3 Other amnesia; I48.0 Paroxysmal atrial fibrillation; I10 Essential (primary) hypertension | CPT/HCPCS: 99214 ==

== ENCOUNTER 2025-04-09 13:06 | Outpatient (REF) | payer MEDICARE, SELFPAY ==
[2025-04-09 21:44] LABS: ALT 46 U/L (16-63); AST 26 U/L (15-37); Albumin 4.0 g/dL (3.4-5.0); Alkaline Phosphatase 83 U/L (46-116); Anion Gap 5.8 mmol/L (3-11); BUN 17 mg/dL (7-18); Bilirubin, Total 0.9 mg/dL (0.2-1.0); CO2 32.2 mmol/L (21.0-32.0); Calcium 9.4 mg/dL (8.5-10.1); Chloride 103 mmol/L (98-107); Estimated GFR 87.42 (mL/min/1.73m2); Glucose 101 mg/dL (74-106); Potassium 3.9 mmol/L (3.5-5.1); Sodium 141 mmol/L (136-145); Total Protein 7.4 g/dL (6.4-8.2)
== END 2025-04-09 13:07 | disposition home or self-care (01) ==
LOC: NCHCN 13:06
PROVIDERS: PCP Family Medicine; Visit Provider Family Medicine
DX: I50.9 Heart failure, unspecified (principal)
CPT/HCPCS: 80053